=== PATIENT | male | born 1950 | race American Indian/Alaskan Native ===

== ENCOUNTER 2021-05-09 00:53 | Inpatient (IN) | payer MEDICARE ==
--- NOTE | 2021-05-09 01:04 | Emergency Department Report ---
ED Neuro Deficit HPI - General Stated Complaint: ALTERED MENTAL STATUS Time Seen by Provider: 05/09/21 01:00 Source: EMS, old records reviewed (No previous records in [facility].) Mode of arrival: Stretcher Limitations: Other - History of Present Illness Initial Comments: 70-year-old male with a past medical history of hypertension diabetes currently Metformin, glipizide, amlodipine presents to the hospital with stroke symptoms. EMS received call for alteration in mental status. Family states that at around dinnertime they noticed patient was walking into [place] and seems to be confused. He is typically very oriented without deficits. EMS reports a blood pressure of 150/100 and blood glucose is 364. Patient is alert but appears to have an expressive aphasia and difficulty following some commands. Patient states that he is "tripping" code stroke called after my evaluation Patient unable to answer direct questions such as what is his name, or year. He has difficulty with fatigue with word finding and naming objects. He also appears to have difficulty following simple commands such as "touch your nose". In response to this question patient opens and closes his hands. Stat CT head and CT angio head and neck ordered. EMS reports that family member could not be specific about the time of onset other than "around dinnertime" - Related Data Allergies/Adverse Reactions: Allergies Allergy/AdvReac Type Severity Reaction Status Date / Time No Known Allergies Allergy Verified 05/09/21 01:02 ED Review of Systems ROS: Stated complaint: ALTERED MENTAL STATUS Other details as noted in HPI ED Neuro Physical Exam - General Suspected Stroke: Yes - NIHSS Assessment Interval: Baseline 1a. Level of Consciousness: alert/keenly responsive 1b. LOC Questions: answers no questions correctly 1c. LOC Commands: performs tasks correctly 2. Best Gaze: normal 3. Visual: no visual loss 4. Facial Palsy: normal symmetrical movement 5b. Motor Arm Right: no drift 5a. Motor Arm Left: no drift 6a. Motor Leg Left: no drift 6b. Motor Leg Right: no drift 7. Limb Ataxia: absent 8. Sensory: normal 9. Best Language: severe aphasia 10. Dysarthria: normal 11. Extinction/Inattention: no abnormality Total Score: 4 Stroke Severity: Minor Stroke - Lab Data Result diagrams: 05/09/21 01:28 05/09/21 01:28 Lab Results 05/09/21 05/09/21 05/09/21 Range/Units 01:28 01:28 01:28 WBC 6.2 (4.5-11.0) K/mm3 RBC 4.28 (3.65-5.03) M/mm3 Hgb 14.7 (11.8-15.2) gm/dl Hct 39.3 (35.5-45.6) % MCV 92 (84-94) fl MCH 34 H (28-32) pg MCHC 37 H (32-34) % RDW 13.2 (13.2-15.2) % Plt Count 163 (140-440) K/mm3 Lymph % (Auto) 23.0 (13.4-35.0) % Payne % (Auto) 7.5 H (0.0-7.3) % Eos % (Auto) 2.1 (0.0-4.3) % Baso % (Auto) 0.7 (0.0-1.8) % Lymph # (Auto) 1.4 (1.2-5.4) K/mm3 Payne # (Auto) 0.5 (0.0-0.8) K/mm3 Eos # (Auto) 0.1 (0.0-0.4) K/mm3 Baso # (Auto) 0.0 (0.0-0.1) K/mm3 Seg Neutrophils % 66.7 (40.0-70.0) % Seg Neutrophils # 4.1 (1.8-7.7) K/mm3 PT 14.0 (12.2-14.9) Sec. INR 0.97 (0.87-1.13) APTT 27.7 (24.2-36.6) Sec. Thrombin Time 16.9 (15.1-19.6) Sec. VBG pH (7.320-7.420) Sodium 133 L (137-145) mmol/L Potassium 4.1 (3.6-5.0) mmol/L Chloride 96.8 L (98-107) mmol/L Carbon Dioxide 23 (22-30) mmol/L Anion Gap 17 mmol/L BUN 12 (9-20) mg/dL Creatinine 1.0 (0.8-1.3) mg/dL Estimated GFR > 60 ml/min BUN/Creatinine Ratio 12 % Glucose 451 H (75-100) mg/dL Calcium 9.2 (8.4-10.2) mg/dL Total Bilirubin 0.50 (0.1-1.2) mg/dL AST 9 (5-40) units/L ALT 7 (7-56) units/L Alkaline Phosphatase 93 (35-129) units/L Total Creatine Kinase 88 (55-170) units/L CK-MB (CK-2) 2.0 (0.0-4.0) ng/mL CK-MB (CK-2) Rel Index 2.2 (0-4) Troponin T < 0.010 (0.00-0.029) ng/mL Total Protein 6.4 (6.3-8.2) g/dL Albumin 3.9 (3.9-5) g/dL Albumin/Globulin Ratio 1.6 % Urine Color (Yellow) Urine Turbidity (Clear) Urine pH (5.0-7.0) Ur Specific Adkins (1.003-1.030) Urine Protein (Negative) mg/dL Urine Glucose (UA) (Negative) mg/dL Urine Ketones (Negative) mg/dL Urine Blood (Negative) Urine Nitrite (Negative) Urine Bilirubin (Negative) Urine Urobilinogen (<2.0) mg/dL Ur Leukocyte Esterase (Negative) Urine WBC (Auto) (0.0-6.0) /HPF Urine RBC (Auto) (0.0-6.0) /HPF 05/09/21 05/09/21 Range/Units 01:31 Unknown WBC (4.5-11.0) K/mm3 RBC (3.65-5.03) M/mm3 Hgb (11.8-15.2) gm/dl Hct (35.5-45.6) % MCV (84-94) fl MCH (28-32) pg MCHC (32-34) % RDW (13.2-15.2) % Plt Count (140-440) K/mm3 Lymph % (Auto) (13.4-35.0) % Payne % (Auto) (0.0-7.3) % Eos % (Auto) (0.0-4.3) % Baso % (Auto) (0.0-1.8) % Lymph # (Auto) (1.2-5.4) K/mm3 Payne # (Auto) (0.0-0.8) K/mm3 Eos # (Auto) (0.0-0.4) K/mm3 Baso # (Auto) (0.0-0.1) K/mm3 Seg Neutrophils % (40.0-70.0) % Seg Neutrophils # (1.8-7.7) K/mm3 PT (12.2-14.9) Sec. INR (0.87-1.13) APTT (24.2-36.6) Sec. Thrombin Time (15.1-19.6) Sec. VBG pH 7.484 H (7.320-7.420) Sodium (137-145) mmol/L Potassium (3.6-5.0) mmol/L Chloride (98-107) mmol/L Carbon Dioxide (22-30) mmol/L Anion Gap mmol/L BUN (9-20) mg/dL Creatinine (0.8-1.3) mg/dL Estimated GFR ml/min BUN/Creatinine Ratio % Glucose (75-100) mg/dL Calcium (8.4-10.2) mg/dL Total Bilirubin (0.1-1.2) mg/dL AST (5-40) units/L ALT (7-56) units/L Alkaline Phosphatase (35-129) units/L Total Creatine Kinase (55-170) units/L CK-MB (CK-2) (0.0-4.0) ng/mL CK-MB (CK-2) Rel Index (0-4) Troponin T (0.00-0.029) ng/mL Total Protein (6.3-8.2) g/dL Albumin (3.9-5) g/dL Albumin/Globulin Ratio % Urine Color Straw (Yellow) Urine Turbidity Clear (Clear) Urine pH 7.0 (5.0-7.0) Ur Specific Adkins 1.028 (1.003-1.030) Urine Protein 30 mg/dl (Negative) mg/dL Urine Glucose (UA) >=500 (Negative) mg/dL Urine Ketones Neg (Negative) mg/dL Urine Blood Neg (Negative) Urine Nitrite Neg (Negative) Urine Bilirubin Neg (Negative) Urine Urobilinogen < 2.0 (<2.0) mg/dL Ur Leukocyte Esterase Neg (Negative) Urine WBC (Auto) 1.0 (0.0-6.0) /HPF Urine RBC (Auto) 2.0 (0.0-6.0) /HPF - EKG Data -: EKG Interpreted by Me (Previous anterior inferior infarct) EKG shows normal: sinus rhythm, ST-T waves (No ST elevation) Rate: normal - Radiology Data Radiology results: report reviewed CT HEAD WITHOUT CONTRAST INDICATION / CLINICAL INFORMATION: Stroke symptoms. TECHNIQUE: All CT scans at this location are performed using CT dose reduction for ALARA by means of automated exposure control. COMPARISON: None available. FINDINGS: BRAIN PARENCHYMA: No acute intracranial hemorrhage. No evidence of recent infarct. No mass effect or midline shift. Severe confluent hypoattenuation of the periventricular and subcortical white matter. VENTRICULAR SYSTEM/EXTRA-AXIAL SPACES: Age-related cerebral atrophy. No extra- axial fluid collection. ORBITS: Normal as visualized. SKELETAL SYSTEM/SOFT TISSUES: Normal bones and soft tissues. PARANASAL SINUSES/MASTOID AIR CELLS: No significant abnormality. ADDITIONAL FINDINGS: None. IMPRESSION: 1. No acute intracranial abnormality. CT angio head INDICATION / CLINICAL INFORMATION: 70 years Male; stroke sx. TECHNIQUE: Thin cut axial images obtained through the head during IV bolus contrast administration. Sagittal, coronal, and 3 plane MIP reconstructions performed by the technologist. NASCET type criteria used evaluate stenoses. Automated exposure control utilized for radiation reduction purposes. . COMPARISON: None available. FINDINGS: INTERNAL CAROTID ARTERIES: No significant narrowing appreciated. VERTEBROBASILAR SYSTEM: Right dominant vertebral system seen. Focal area of moderate to high-grade narrowing is seen in the nondominant left vertebral artery at the level of foramen magnum. The distal right vertebral and basilar arteries are widely patent. DISTAL BRANCHES: Distal branches of the anterior and posterior cerebral arteries are fairly symmetric in appearance and number. There is a mid to distal sylvian fissure branch MCA occlusion on the left, with a paucity of vessels noted distally in the left parietotemporal region. Loss of nixon/white differentiation is seen in this region, as well as the posterior insular cortex on the left. Remainder of the MCA territories are fairly symmetric in appearance. Hypoplastic P1 segment noted on the right - right GUARD LIEUTENANT demonstrates a origin. 2 focal area of moderate narrowing in the P2 portion of the right posterior cerebral artery, lateral to the midbrain. ANEURYSM: None identified. ADDITIONAL FINDINGS: Mild mucosal thickening in the maxillary antra. IMPRESSION: 1. 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 This vessel supplies blood flow to the ipsilateral parietotemporal region. 2. Focal area of narrowing in the right GUARD LIEUTENANT noted. 3. Focal area of moderate to high-grade narrowing seen in the nondominant left vertebral artery. Note, I see no signs of early ischemia in the posterior fossa. Type CT angio neck INDICATION / CLINICAL INFORMATION: 70 years Male; stroke sx. TECHNIQUE: Thin cut axial images obtained through the head during IV bolus contrast administration. Sagittal, coronal, and 3 plane MIP reconstructions performed by the technologist. NASCET type cri teria used evaluate stenoses. All CT scans at this location are performed using CT dose reduction for ALARA by means of automated exposure control. . COMPARISON: None available. FINDINGS: ARCH: Bovine arch configuration noted. Focal area of [id number] narrowing is seen at the junction of the left subclavian and axillary artery, posterior to the clavicle and anterior to the second rib. Its difficult to evaluate for the exact degree of stenosis in this region as there is streak artifact from dense contrast in the left subclavian vein. Comparative, upper extremity Doppler arterial analysis may be of benefit. CAROTID ARTERIES: The visualized common and internal carotid arteries are widely patent. VERTEBRAL ARTERIES: Slight, right dominant vertebral system seen. Focal area of moderate narrowing is seen in the proximal right vertebral artery near its origin. Similar finding is seen at the origin of the left vertebral artery. No other significant stenosis appreciated in the extra cranial vertebral arteries, although multiple areas of mild narrowing are seen bilaterally, presumably related atherosclerotic disease. ADDITIONAL FINDINGS: There is levoscoliosis of the cervicothoracic region. Mild loss of height at various levels in the cervical spine, which appears be on a chronic basis. Vertebral canal narrowing seen at C3-4 perhaps [id number] appear to be on degenerative basis. IMPRESSION: 1. Narrowing seen in the left subclavian/axillary artery, as described above. 2. No significant narrowing seen in the common or internal carotid arteries. 3. Atherosclerotic disease seen in the vertebral arteries with areas of moderate narrowing seen near their origins. - Medical Decision Making 70-year-old male presents to the hospital with stroke symptoms are started sometimes around dinnertime. Time of onset greater than 4.5 hours therefore patient is not a TPA candidate. CT angiogram suggests MCA occlusion ever, there are any findings of white matter changes and may show scans only for therefore patient still is not a candidate for acute thrombectomy intervention (see neurology note). Patient did pass swallow screen and provided aspirin p.o. Will be admitted to the hospital for continued stroke work-up and treatment. - Thrombolytic Inclusion/Exclusion Thrombolytic Exclusion Criteria: Symptom Onset > 3 Hours Critical Care Time: Yes Critical care time in (mins) excluding proc time.: 35 Critical care attestation.: If time is entered above; I have spent that time in minutes in the direct care of this critically ill patient, excluding procedure time. Critical Care Time: 35 Minutes of critical care time excluding procedures were used in the care of the patient. I came immediately to the bedside upon patient's arrival. I obtained history from EMS at the bedside. I discussed treatment plan with the nursing team members. I reviewed electronic record. Patient required multiple reassessments. patient received stat ED work-up including consultation with neurology ED Disposition Clinical Impression: Acute CVA (cerebrovascular accident), Expressive aphasia Disposition: ADMITTED INPATIENT Is pt being admited?: Yes Condition: Stable Time of Disposition: 02:39
[2021-05-09] MEDS ORDERED: ASPIRIN 325 MG TAB PO ONE (01:19)
--- NOTE | 2021-05-09 01:23 | Cat Scan Report ---
CT HEAD WITHOUT CONTRAST INDICATION / CLINICAL INFORMATION: Stroke symptoms. TECHNIQUE: All CT scans at this location are performed using CT dose reduction for ALARA by means of automated exposure control. COMPARISON: None available. FINDINGS: BRAIN PARENCHYMA: No acute intracranial hemorrhage. No evidence of recent infarct. No mass effect or midline shift. Severe confluent hypoattenuation of the periventricular and subcortical white matter. VENTRICULAR SYSTEM/EXTRA-AXIAL SPACES: Age-related cerebral atrophy. No extra-axial fluid collection. ORBITS: Normal as visualized. SKELETAL SYSTEM/SOFT TISSUES: Normal bones and soft tissues. PARANASAL SINUSES/MASTOID AIR CELLS: No significant abnormality. ADDITIONAL FINDINGS: None. IMPRESSION: 1. No acute intracranial abnormality. CODE STROKE Time of Communication (FLAME HARDENER/CDT): Jessica Churchill Licensed Practitioner Receiving Report: 05/09/21 @ 1215 am Signer Name: Art Neff MD Signed: 05/09/2021 1:18 AM Workstation Name: [id number]
--- NOTE | 2021-05-09 01:27 | Consultation ---
History of Present Illness History of present illness: [facility] Consult Note # Demographics Consult Type: Acute Stroke Level 2 (4.5-24 hrs) Patient Location: Emergency Room First Name: Dino Last Name: Paulino Date of : 1950 Age: 70 Gender: Male Facility: [facility] Time of Initial Page (): 05/09/2021, 01:13 Time of Return Call (): 05/09/2021, 01:14 # Scores Time of exam and NIHSS (): 05/09/2021, 01:21 Level of Consciousness 1a: [0] = Alert; keenly responsive LOC Questions 1b: [2] = Answers neither correctly LOC Commands 1c: [0] = Performs both tasks correctly Best Gaze 2: [0] = Normal Visual 3: [0] = No visual loss Facial Palsy 4: [0] = Normal symmetrical movements Motor Arm Left 5a: [0] = No drift Motor Arm Right 5b: [0] = No drift Motor Leg Left 6a: [0] = No drift Motor Leg Right 6b: [0] = No drift Limb Ataxia 7: [0] = Absent Sensory 8: [0] = Normal Best Language 9: [2] = Severe aphasia Dysarthria 10: [0] = Normal Extinction and Inattention 11: [0] = No abnormality NIHSS Total: 4 # Data Time Head CT personally read by me (): 05/09/2021, 01:[address]: no bleed preliminarily reviewed by me, please refer to radiology read for official reading CTA Head: no large vessel occlusion preliminarily reviewed by me, please refer to radiology read for official reading CTA Neck: patent vessels preliminarily reviewed by me, please refer to radiology read for official reading # Assessment Impression: Ischemic Stroke (Acute) # Plan Thrombolytic/Intervention: NOT IV Thrombolysis or IA Intervention candidate Thrombolytic Exclusion: > 4.5 hours Intraarterial Exclusion: no large vessel occlusion (LVO) Target Blood Pressure: SBP < 220 DBP < 105 Labs: hemoglobin A1c lipid panel Imaging: (urgency: routine): MRI Brain without contrast Diagnostic Test: echo without bubble study Therapy/Evaluation: NPO until swallow evaluation PT/OT evaluation speech/swallow consultation Medication: ASA 325 x1 then 81 daily (300 TX if fails swallow eval) Atorvastatin 80, tailor daily dose to LDL < 70 goal DVT Prophylaxis: SCD chemical DVT prophylaxis Other: permissive hypertension telemetry monitoring I have discussed my recommendations with the referring provider Disposition: admit # Logistics Telemedicine: Interactive 2 way audio and visual telecommunication technology was utilized during this visit Electronically signed at 05/09/2021 01:26 (Eastern Time) by Shubham Ford MD Medications and Allergies Allergies Allergy/AdvReac Type Severity Reaction Status Date / Time No Known Allergies Allergy Verified 05/09/21 01:02
[2021-05-09 01:51] LABS: Basophils % (Auto) 0.7 % (0.0-1.8); Eosinophils # (Auto) 0.1 K/mm3 (0.0-0.4); Eosinophils % (Auto) 2.1 % (0.0-4.3); Lymphocytes # (Auto) 1.4 K/mm3 (1.2-5.4); Mean Corpuscular HGB Conc 37 % (32-34); Mean Corpuscular Volume 92 fl (84-94); Monocytes # (Auto) 0.5 K/mm3 (0.0-0.8); Monocytes % (Auto) 7.5 % (0.0-7.3); Platelet Count 163 K/mm3 (140-440); Red Blood Count 4.28 M/mm3 (3.65-5.03); Red Cell Distribution Width 13.2 % (13.2-15.2)
--- NOTE | 2021-05-09 01:51 | Cat Scan Report ---
CT angio head INDICATION / CLINICAL INFORMATION: 70 years Male; stroke sx. TECHNIQUE: Thin cut axial images obtained through the head during IV bolus contrast administration. S agittal, coronal, and 3 plane MIP reconstructions performed by the technologist. NASCET type criteria used evaluate stenoses. Automated exposure control utilized for radiation reduction purposes. . COMPARISON: None available. FINDINGS: INTERNAL CAROTID ARTERIES: No significant narrowing appreciated. VERTEBROBASILAR SYSTEM: Right dominant vertebral system seen. Focal area of moderate to high-grade narrowing is seen in the nondominant left vertebral artery at th e level of foramen magnum. The distal right vertebral and basilar arteries are widely patent. DISTAL BRANCHES: Distal branches of the anterior and posterior cerebral arteries are fairly symmetric in appearance and number. There is a mid to distal sylvian fissure branch MCA occlusion on the left, with a paucity of vessels noted distally in the left parietotemporal region. Loss of nixon/white differentiation is seen in this region, as well as the posterior insular cortex on the left. Remainder of the MCA territories are fa irly symmetric in appearance. Hypoplastic P1 segment noted on the right - right EMT B demonstrates a origin. 2 focal area of moderate narrowing in the P2 portion of the right posterior cerebral artery, lateral to the midbrain. ANEURYSM: None identified. ADDITIONAL FINDINGS: Mild mucosal thickening in the maxillary antra. IMPRESSION: 1. 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 This vessel supplies blo od flow to the ipsilateral parietotemporal region. 2. Focal area of narrowing in the right EMT B noted. 3. Focal area of moderate to high-grade narrowing seen in the nondominant left vertebral artery. Note , I see no signs of early ischemia in the posterior fossa. Signer Name: Kareem Brito MD, III Signed: 05/09/2021 1:47 AM Workstation Name: [email or web address]
[2021-05-09 01:59] LABS: Hematocrit 39.3 % (35.5-45.6); Hemoglobin 14.7 gm/dl (11.8-15.2)
[2021-05-09 02:03] LABS: INR 0.97 (0.87-1.13)
[2021-05-09 02:04] LABS: Partial Thromboplastin Time 27.7 Sec. (24.2-36.6); Thrombin Time 16.9 Sec. (15.1-19.6)
[2021-05-09 02:06] LABS: Alanine Aminotransferase 7 units/L (7-56); Albumin 3.9 g/dL (3.9-5); BUN/Creatinine Ratio 12; Blood Urea Nitrogen 12 mg/dL (9-20); Calcium 9.2 mg/dL (8.4-10.2); Hemolysis Index 8
--- NOTE | 2021-05-09 02:09 | Cat Scan Report ---
Type CT angio neck INDICATION / CLINICAL INFORMATION: 70 years Male; stroke sx. TECHNIQUE: Thin cut axial images obtained through the head during IV bolus contrast administration. S agittal, coronal, and 3 plane MIP reconstructions performed by the technologist. NASCET type criteria used evaluate stenoses. All CT scans at this location are performed using CT dose reduction for ALAR A by means of automated exposure control. . COMPARISON: None available. FINDINGS: ARCH: Bovine arch configuration noted. Focal area of [id number] narrowing is seen at the junction of the left subclavian and axillary artery, posterior to the clavicle and anterior to the second rib. Its difficult to evaluate for the e xact degree of stenosis in this region as there is streak artifact from dense contrast in the left rolon bclavian vein. Comparative, upper extremity Doppler arterial analysis may be of benefit. CAROTID ARTERIES: The visualized common and internal carotid arteries are widely patent. VERTEBRAL ARTERIES: Slight, right dominant vertebral system seen. Focal area of moderate narrowing is seen in the proximal right vertebral artery near its origin. Monica lar finding is seen at the origin of the left vertebral artery. No other significant stenosis appreciated in the extra cranial vertebral arteries, although multiple areas of mild narrowing are seen bilaterally, presumably related atherosclerotic disease. ADDITIONAL FINDINGS: There is levoscoliosis of the cervicothoracic region. Mild loss of height at various levels in the cervical spine, which appears be on a chronic basis. Alina tebral canal narrowing seen at C3-4 perhaps [id number] appear to be on degenerative basis. IMPRESSION: 1. Narrowing seen in the left subclavian/axillary artery, as described above. 2. No significant narrowing seen in the common or internal carotid arteries. 3. Atherosclerotic disease seen in the vertebral arteries with areas of moderate narrowing seen near their origins. Signer Name: Kareem Brito MD, III Signed: 05/09/2021 2:05 AM Workstation Name: [email or web address]
[2021-05-09 02:25] LABS: Bilirubin,Urine NEG (Negative); Blood,Urine NEG (Negative); Color,Urine Straw (Yellow); Urobilinogen,Urine < 2.0 mg/dL (<2.0)
[2021-05-09] MEDS ORDERED: INSULIN REGULAR, HUMAN 100 UNITS/1 ML IV ONE (02:34)
[2021-05-09] MEDS ORDERED: METOCLOPRAMIDE 10 MG TAB PO PRN (03:09)
[2021-05-09] MEDS ORDERED: ONDANSETRON 4 MG/2 ML INJ IV PRN (03:09)
[2021-05-09] MEDS ORDERED: MAGNESIUM HYDROXIDE (MOM) ORAL LIQD UDC PO PRN (03:09)
[2021-05-09] MEDS ORDERED: ACETAMINOPHEN 325 MG TAB PO PRN (03:09)
[2021-05-09] MEDS ORDERED: MORPHINE 4 MG/1 ML INJ IV PRN (03:09)
[2021-05-09] MEDS ORDERED: PROMETHAZINE 25 MG RECT SUPP PR PRN (03:09)
[2021-05-09] MEDS ORDERED: MORPHINE 2 MG/1 ML INJ IV PRN (03:09)
--- NOTE | 2021-05-09 03:18 | History and Physical Report ---
History of Present Illness Date of examination: 05/09/21 Date of admission: 05/09/2021 Chief complaint: Altered Mental Status History of present illness: 89-year-old -[place] male with known history of hypertension, diabetes mellitus presenting to the emergency room today with altered mental status and strokelike symptoms. Patient's family was said to have noticed him walking into the [place] and seems to be confused and therefore called EMS. Initial blood pressure upon arrival of EMS was 150/100 and blood glucose was 364. Symptoms were said to have started about dinnertime earlier in the evening. Patient denies any fever or chills, no chest pain or shortness of breath, no nausea vomiting and no abdominal pain. He denies any headache or dizziness, denies any diaphoresis. Patient denies any sick contacts and no recent travel. Denies any sick contacts with anyone with COVID-19. During my history, patient seems to have expressive aphasia and had some difficulty following some commands. Work-up in the emergency room today, CT of the head shows no acute abnormality. CT angiogram of the head reveals: 1. 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 This vessel supplies blood flow to the ipsilateral parietotemporal region. 2. Focal area of narrowing in the right [employer] noted. 3. Focal area of moderate to high-grade narrowing seen in the nondominant left vertebral artery. Note, I see no signs of early ischemia in the posterior fossa. CT angiogram of the neck reveals: 1. Narrowing seen in the left subclavian/axillary artery, as described above. 2. No significant narrowing seen in the common or internal carotid arteries. 3. Atherosclerotic disease seen in the vertebral arteries with areas of moderate narrowing seen near their origins. Lab is significant for elevated blood glucose of 451. Patient evaluated by the tele-neurologist and recommendation is to have patient worked up for CVA. He will be scheduled for MRI of the brain, carotid Doppler and echocardiogram. We will also check hemoglobin A1c and lipid profile. Patient passed the bedside swallowing test and had received aspirin. Past History Past Medical History: diabetes, hypertension Past Surgical History: No surgical history Social history: no significant social history Family history: no significant family history Medications and Allergies Allergies Allergy/AdvReac Type Severity Reaction Status Date / Time No Known Allergies Allergy Verified 05/09/21 01:02 Active Meds: Active Medications Acetaminophen (Acetaminophen 325 Mg Tab) 650 mg PO Q4H PRN PRN Reason: Pain, Mild (1-3) Atorvastatin Calcium (Atorvastatin 40 Mg Tab) 40 mg PO QHS GABRIELE Bisacodyl (Bisacodyl 10 Mg Rect Supp) 10 mg LA QDAY PRN PRN Reason: Constipation Dextrose (Dextrose 50% In Water (25gm) 50 Ml Syringe) 50 ml IV Q30MIN PRN; Protocol PRN Reason: Hypoglycemia Magnesium Hydroxide (Magnesium Hydroxide (Mom) Oral Liqd Udc) 30 ml PO Q4H PRN PRN Reason: Constipation Metoclopramide HCl (Metoclopramide 10 Mg Tab) 10 mg PO Q6H PRN PRN Reason: Nausea And Vomiting Ondansetron HCl (Ondansetron 4 Mg/2 Ml Inj) 4 mg IV Q8H PRN PRN Reason: Nausea And Vomiting Promethazine HCl (Promethazine 25 Mg Rect Supp) 25 mg LA Q6H PRN PRN Reason: Nausea And Vomiting Sodium Chloride (Sodium Chloride 0.9% 10 Ml Flush Syringe) 10 ml INJ PRN PRN PRN Reason: LINE FLUSH Review of Systems Constitutional: no fever, no chills Ears, nose, mouth and throat: no nasal congestion, no sore throat Cardiovascular: no chest pain, no palpitations Respiratory: no cough, no shortness of breath Gastrointestinal: no abdominal pain, no nausea, no vomiting, no diarrhea Genitourinary Male: no dysuria, no hematuria, no flank pain Musculoskeletal: no neck pain, no low back pain Integumentary: no rash, no pruritis Neurological: confusion, balance difficulties, no seizures, no headaches Psychiatric: no anxiety, no depression Endocrine: no polyphagia, no polydipsia, no polyuria, no nocturia Exam - Constitutional General appearance: Present: no acute distress, well-nourished - EENT Eyes: Present: PERRL, EOM intact. Absent: scleral icterus ENT: hearing intact, clear oral mucosa, dentition normal - Neck Neck: Present: supple, normal ROM - Respiratory Respiratory effort: normal Respiratory: bilateral: CTA - Cardiovascular Rhythm: regular Heart Sounds: Present: S1 & S2. Absent: gallop, systolic murmur, diastolic murmur, rub, click - Extremities Extremities: no ischemia, pulses intact, pulses symmetrical, No edema, normal temperature, normal color, Full ROM Peripheral Pulses: within normal limits - Abdominal General gastrointestinal: Present: soft, non-tender, non-distended, normal bowel sounds. Absent: mass - Integumentary Integumentary: Present: clear, warm, dry, normal turgor. Absent: rash - Musculoskeletal Musculoskeletal: strength equal bilaterally - Psychiatric Psychiatric: appropriate mood/affect, intact judgment & insight, memory intact, cooperative - Neurologic Neurologic: CNII-XII intact, no focal deficits, moves all extremities HEART Score - HEART Score Troponin: Troponin T < 0.010 ng/mL (0.00-0.029) 05/09/21 01:28 Results - Labs CBC & Chem 7: 05/09/21 01:05/09/21 01:28 Labs: Abnormal lab results 05/09/21 05/09/21 05/09/21 Range/Units 01: 01:28 01:31 MCH 34 H (28-32) pg MCHC 37 H (32-34) % [place] % (Auto) 7.5 H (0.0-7.3) % VBG pH 7.484 H (7.320-7.420) Sodium 133 L (137-145) mmol/L Chloride 96.8 L (98-107) mmol/L Glucose 451 H (75-100) mg/dL POC Glucose (70-105) mg/dL 05/09/21 Range/Units 03:08 MCH (28-32) pg MCHC (32-34) % [place] % (Auto) (0.0-7.3) % VBG pH (7.320-7.420) Sodium (137-145) mmol/L Chloride (98-107) mmol/L Glucose (75-100) mg/dL POC Glucose 376 H (70-105) mg/dL Assessment and Plan - Patient Problems (1) Acute CVA (cerebrovascular accident) Current Visit: Yes Status: Acute Plan to address problem: Patient admitted and placed on telemetry. We will schedule for echocardiogram, carotid Doppler and MRI of the brain. We will request neurology evaluation. (2) Hyperglycemia Current Visit: Yes Status: Acute Plan to address problem: Patient placed on sliding scale insulin. We will monitor Accu-Cheks closely. (3) Hypertension Current Visit: Yes Status: Acute Plan to address problem: We will resume routine home medications and monitor vital signs closely. (4) Expressive aphasia Current Visit: Yes Status: Acute Plan to address problem: We request speech therapy evaluation and recommendations. (5) DVT prophylaxis Current Visit: Yes Status: Acute Plan to address problem: Patient placed on subcutaneous heparin. (6) Full code status Current Visit: Yes Status: Acute Plan to address problem: Patient is full code.
[2021-05-09] MEDS ORDERED: DEXTROSE 10% *Hypoglycemia IV PRN (03:33)
[2021-05-09] MEDS: HEPARIN 5,000 UNIT/1 ML VIAL SUB-Q SCH ×3 (06:41→23:38)
[2021-05-09] MEDS: INSULIN LISPRO 100 UNIT/ML SUB-Q SCH ×4 (08:00→23:38)
--- NOTE | 2021-05-09 09:20 | Consultation ---
History of Present Illness Consult date: 05/09/21 Reason for Consult: Confusion and or aphasia,Hyperglycemia History of present illness: Altered Mental Status History of present illness: 89-year-old -Citizen Of [place] male with known history of hypertension, diabetes mellitus presenting to the emergency room today with altered mental status and strokelike symptoms. Patient's family was said to have noticed him walking into the [place] and seems to be confused and therefore called EMS. Initial blood pressure upon arrival of EMS was 150/100 and blood glucose was 364. Symptoms were said to have started about dinnertime earlier in the evening. Patient denies any fever or chills, no chest pain or shortness of breath, no nausea vomiting and no abdominal pain. He denies any headache or dizziness, denies any diaphoresis. Patient denies any sick contacts and no recent travel. Denies any sick contacts with anyone with COVID-19. During my history, patient seems to have perceptive aphasia and had some difficulty following some commands. Work-up in the emergency room today, CT of the head shows no acute abnormality. CT angiogram of the head reveals: 1. 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 This vessel supplies blood flow to the ipsilateral parietotemporal region. 2. Focal area of narrowing in the right [employer] noted. 3. Focal area of moderate to high-grade narrowing seen in the nondominant left vertebral artery. Note, I see no signs of early ischemia in the posterior fossa. CT angiogram of the neck reveals: 1. Narrowing seen in the left subclavian/axillary artery, as described above. 2. No significant narrowing seen in the common or internal carotid arteries. 3. Atherosclerotic disease seen in the vertebral arteries with areas of moderate narrowing seen near their origins. Lab is significant for elevated blood glucose of 451. Patient evaluated by the tele-neurologist and recommendation is to have patient worked up for CVA. Brain MRI of the brain is remarkable for large left parieto temporal infarct , no hemorrhage no edema carotid Doppler <50% stenosis and echocardiogram showed 20-25% LV and left atrial dilatation Patient passed the bedside swallowing test and had received aspirin. Past History Past Medical History: diabetes, hypertension Past Surgical History: No surgical history Social history: no significant social history Family history: no significant family history Medications and Allergies Allergies Allergy/AdvReac Type Severity Reaction Status Date / Time No Known Allergies Allergy Verified 05/09/21 01:02 Active Meds: Active Medications Acetaminophen (Acetaminophen 325 Mg Tab) 650 mg PO Q4H PRN PRN Reason: Pain, Mild (1-3) Atorvastatin Calcium (Atorvastatin 40 Mg Tab) 40 mg PO QHS GABRIELE Bisacodyl (Bisacodyl 10 Mg Rect Supp) 10 mg MA QDAY PRN PRN Reason: Constipation Dextrose (Dextrose 50% In Water (25gm) 50 Ml Syringe) 50 ml IV Q30MIN PRN; Protocol PRN Reason: Hypoglycemia Magnesium Hydroxide (Magnesium Hydroxide (Mom) Oral Liqd Udc) 30 ml PO Q4H PRN PRN Reason: Constipation Metoclopramide HCl (Metoclopramide 10 Mg Tab) 10 mg PO Q6H PRN PRN Reason: Nausea And Vomiting Ondansetron HCl (Ondansetron 4 Mg/2 Ml Inj) 4 mg IV Q8H PRN PRN Reason: Nausea And Vomiting Promethazine HCl (Promethazine 25 Mg Rect Supp) 25 mg MA Q6H PRN PRN Reason: Nausea And Vomiting Sodium Chloride (Sodium Chloride 0.9% 10 Ml Flush Syringe) 10 ml INJ PRN PRN PRN Reason: LINE FLUSH Review of Systems Constitutional: no fever, no chills Ears, nose, mouth and throat: no nasal congestion, no sore throat Cardiovascular: no chest pain, no palpitations Respiratory: no cough, no shortness of breath Gastrointestinal: no abdominal pain, no nausea, no vomiting, no diarrhea Genitourinary Male: no dysuria, no hematuria, no flank pain Musculoskeletal: no neck pain, no low back pain Integumentary: no rash, no pruritis Neurological: confusion, balance difficulties, no seizures, no headaches Psychiatric: no anxiety, no depression Endocrine: no polyphagia, no polydipsia, no polyuria, no nocturia Exam Past History Past Medical History: diabetes, hypertension Past Surgical History: No surgical history Social history: no significant social history Family history: no significant family history Medications and Allergies Allergies Allergy/AdvReac Type Severity Reaction Status Date / Time No Known Allergies Allergy Verified 05/09/21 01:02 Active Meds: Active Medications Acetaminophen (Acetaminophen 325 Mg Tab) 650 mg PO Q4H PRN PRN Reason: Pain, Mild (1-3) Aspirin (Aspirin 325 Mg Tab) 325 mg PO QDAY GABRIELE Atorvastatin Calcium (Atorvastatin 40 Mg Tab) 40 mg PO QHS GABRIELE Bisacodyl (Bisacodyl 10 Mg Rect Supp) 10 mg MA QDAY PRN PRN Reason: Constipation Dextrose (Dextrose 10% *Hypoglycemia) 0 ml IV DIRECT PRN; Protocol PRN Reason: Hypoglycemia Heparin Sodium (Porcine) (Heparin 5,000 Unit/1 Ml Vial) 5,000 unit SUB-Q Q8HR [facility] Last Admin: 05/09/21 06:41 Dose: 5,000 unit Insulin Human Lispro (Insulin Lispro 100 Unit/Ml) 0 unit SUB-Q ACHS [facility]; Protocol Magnesium Hydroxide (Magnesium Hydroxide (Mom) Oral Liqd Udc) 30 ml PO Q4H PRN PRN Reason: Constipation Metoclopramide HCl (Metoclopramide 10 Mg Tab) 10 mg PO Q6H PRN PRN Reason: Nausea And Vomiting Morphine Sulfate (Morphine 2 Mg/1 Ml Inj) 2 mg IV Q4H PRN PRN Reason: Pain, Moderate (4-6) Morphine Sulfate (Morphine 4 Mg/1 Ml Inj) 4 mg IV Q4H PRN PRN Reason: Pain , Severe (7-10) Ondansetron HCl (Ondansetron 4 Mg/2 Ml Inj) 4 mg IV Q8H PRN PRN Reason: Nausea And Vomiting Promethazine HCl (Promethazine 25 Mg Rect Supp) 25 mg MA Q6H PRN PRN Reason: Nausea And Vomiting Sodium Chloride (Sodium Chloride 0.9% 10 Ml Flush Syringe) 10 ml IV PRN PRN PRN Reason: LINE FLUSH Physical Examination - Vital Signs Vital Signs: Vital Signs Temp Pulse 98.1 F 86 05/09/21 01:22 05/09/21 01:22 - Constitutional General appearance: comfortable - EENT EENT: Present: PERRL, mucous membranes moist - Respiratory Respiratory: Present: chest non-tender, lungs clear, rhonchi - Cardiovascular Cardiovascular: Present: regular rate, normal S1, normal S2 Extremities: Present: no peripheral edema bilatateraly, no clubbing, cyanosis - Gastrointestinal Gastrointestinal: Present: normoactive bowel sounds - Integumentary Integumentary: Present: normal - Neurologic Cranial nerve examination: PERRL, EOMI, other (possible right visual neglect ,) Speech examination: sensory aphasia, other Sensorimotor examination: intact Detailed motor examination: grossly full strength in - Level of Consciousness 1a. Level of Consciousness: alert/keenly responsive - LOC Questions 1b. LOC Questions: answers no questions correctly - LOC Command 1c. LOC Commands: performs no tasks correctly - Best Gaze 2. Best Gaze: normal - Visual 3. Visual: partial hemianopia - Facial Palsy 4. Facial Palsy: normal symmetrical movement - Motor Arm 5a. Motor Arm Left: no drift 5b. Motor Arm Right: no drift - Motor Leg 6a. Motor Leg Left: no drift 6b. Motor Leg Right: no drift - Limb Ataxia 7. Limb Ataxia: absent - Sensory 8. Sensory: normal - Best Language 9. Best Language: severe aphasia - Dysarthria 10. Dysarthria: normal - Extinction and Inattention 11. Extinction/Inattention: no abnormality - Scoring Total Score: 7 Stroke Severity: Moderate Stroke Results - Laboratory Findings CBC and BMP: 05/09/21 01:28 05/09/21 01:28 Abnormal Lab Findings: Abnormal Labs 05/09/21 05/09/21 05/09/21 01:28 01:28 01:31 MCH 34 H MCHC 37 H [place] % (Auto) 7.5 H VBG pH 7.484 H Sodium 133 L Chloride 96.8 L Glucose 451 H POC Glucose 05/09/21 03:08 MCH MCHC [place] % (Auto) VBG pH Sodium Chloride Glucose POC Glucose 376 H Assessment and Plan - Patient Problems 89-year-old -Citizen Of [place] male with known history of hypertension, diabetes mellitus presenting to the emergency room today with altered mental status and strokelike symptoms. Patient's family was said to have noticed him walking into the [place] and seems to be confused and therefore called EMS. Initial blood pressure upon arrival of EMS was 150/100 and blood glucose was 364. Symptoms were said to have started about dinnertime earlier in the evening. # Acute CVA (cerebrovascular accident) -pt. is with perceptive aphasia and or possible right visual neglect no focal weakness is noted -CT brain is unremarkable -CTA brain showed possibel posterior branch of left MCA occlusion in sylvian fissure region with focal narrowing in right [employer]IAN noted. - Focal area of moderate to high-grade narrowing seen in the nondominant left vertebral artery. CT angiogram of the neck reveals: - Narrowing seen in the left subclavian/axillary artery, as described above. - No significant narrowing seen in the common or internal carotid arteries. - Atherosclerotic disease seen in the vertebral arteries with areas of moderate narrowing seen near their origins. -echo is noted as well as carotid US -LDL and A1C are pending -he is started on ASA and Lipitor _ Consider transfere to ICU due to large CVA lesion the chance of edema can not be excluded =suggest start on mannitol 40 gm IV now then 25 gm qid X 3 days -better control of sufer -neuro check q shift -CT brain repeat AM -and consider neurosurgical openion if change in mental status # Hyperglycemia -suger control<150 -A1C # Hypertension - allow for permisive HTN<180/120 for 24 hours then BP<150/80 gradual control #Fluent aphasia -We request speech therapy evaluation and recommendations. # DVT prophylaxis -Patient placed on subcutaneous heparin. # Full code status -Patient is full code. D/W PCP and Nurse on floor
--- NOTE | 2021-05-09 09:34 | Event Note ---
Date: 05/09/21 This is a follow-up from an admission earlier this morning. Patient seen and examined. Patient with expressive aphasia but moves all extremities well with no motor deficits. Follow-up echocardiogram, carotid Doppler and MRI brain. Neurology consultation pending. We will continue to plan as outlined in H&P. Total visit time equals 35 minutes with greater than 50% spent on coordination of care and counseling.
[2021-05-09] MEDS ORDERED: ASPIRIN 325 MG TAB PO SCH (10:00)
--- NOTE | 2021-05-09 12:01 | Vascular Lab Report ---
DUPLEX DOPPLER ULTRASOUND CAROTID, BILATERAL INDICATION / CLINICAL INFORMATION: stroke. COMPARISON: CTA neck 05/09/2021. FINDINGS: RIGHT CAROTID: Mild atherosclerotic plaque. - PLAQUE ESTIMATE (%): < 50% - CCA velocity: 40 cm/sec. - ICA peak systolic velocity: 76 cm/sec. - ICA/CCA PSV Ratio: Less than 2. Right Vertebral Artery: Antegrade flow. LEFT CAROTID: Mild atherosclerotic plaque. - PLAQUE ESTIMATE (%): < 50% - CCA velocity: 46 cm/sec. - ICA peak systolic velocity: 86 cm/sec. - ICA/CCA PSV Ratio: Less than 2. Left Vertebral Artery: Antegrade flow. IMPRESSION: 1. Right Internal Carotid Artery: Less than 50% diameter stenosis. 2. Left Internal Carotid Artery: Less than 50% diameter stenosis. Velocity criteria are extrapolated from diameter data as defined by the Society of Radiologists in Ul trasound Consensus Conference, Radiology 2003; 229;340-346. NO STENOSIS (NORMAL) - Plaque = none; ICA PSV < 125 cm/sec; ICA/CCA PSV Ratio < 2.0 <50% STENOSIS - Plaque < 50%; ICA PSV < 125 cm/sec; ICA/CCA PSV Ratio < 2.0 50-69% STENOSIS - Plaque > 50%; ICA PSV = 125-230 cm/sec; ICA/CCA PSV Ratio = 2.0-4.0 >70% BUT <100% STENOSIS - Plaque > 50%; ICA PSV > 230 cm/sec; ICA/CCA PSV Ratio > 4.0 NEAR OCCLUSION - Plaque = visible lumen; ICA PSV = high/low/none; ICA/CCA PSV Ratio = variable TOTAL OCCLUSION - Plaque = no lumen; ICA PSV = none; ICA/CCA PSV Ratio = N/A Scribed by: Karime Mcneill RDMS, RVT, RMSKS Scribed: 05/09/2021 10:09 AM I have reviewed the images, agree with this report, and edited this report as needed. Signer Name: Temo Coley MD Signed: 05/09/2021 11:57 AM Workstation Name: [id number]
[2021-05-09] MEDS ORDERED: MANNITOL IV STA (14:30)
--- NOTE | 2021-05-09 15:08 | Magnetic Resonance Report ---
MRI BRAIN 05/09/2021 INDICATION / CLINICAL INFORMATION: stroke, CONFUSION. TECHNIQUE: Multiplanar, multisequence MR images of the brain were obtained. COMPARISON: CT brain 05/09/2021 FINDINGS: BRAIN / INTRACRANIAL CONTENTS: Unenhanced MR images of the brain demonstrate a prominent area of acut e cortical ischemic injury involving the posterior aspect of the left temporal lobe, extending upward into the left parietal lobe. Restricted diffusion is present diffusely involving cortical and subcor tical white matter over an overall length of approximately 9.7 cm. There is cortical edema as evidenc e by T2-weighted signal change, and loss of sulcal definition. There is no evidence of hemorrhage. Underlying age-related atrophic changes and extensive diffuse microangiopathic white matter T2 weight ed signal changes present. There is no evidence of abnormal extra-axial fluid collection. EXTRACRANIAL: Unremarkable CRANIOCERVICAL JUNCTION: No significant abnormality. VASCULAR FLOW-VOIDS: No significant abnormality. IMPRESSION: Early post ischemic changes in left temporal and parietal lobe, consistent with the distribution of the posterior segment of the left MCA territory. No evidence of hemorrhage. Signer Name: Logan Martinez MD Signed: 05/09/2021 3:03 PM Workstation Name: [id number]
[2021-05-09] MEDS: MANNITOL IV SCH ×2 (18:19→23:38)
[2021-05-10] MEDS: HEPARIN 5,000 UNIT/1 ML VIAL SUB-Q SCH ×3 (05:08→21:29)
[2021-05-10 07:52] LABS: Basophils % (Auto) 0.4 % (0.0-1.8); Eosinophils # (Auto) 0.1 K/mm3 (0.0-0.4); Eosinophils % (Auto) 0.7 % (0.0-4.3); Hemoglobin 15.5 gm/dl (11.8-15.2); Lymphocytes # (Auto) 1.8 K/mm3 (1.2-5.4); Lymphocytes % (Auto) 21.2 % (13.4-35.0); Mean Corpuscular HGB Conc 34 % (32-34); Mean Corpuscular Volume 93 fl (84-94); Monocytes # (Auto) 0.8 K/mm3 (0.0-0.8); Monocytes % (Auto) 9.5 % (0.0-7.3); Platelet Count 165 K/mm3 (140-440); Red Blood Count 4.93 M/mm3 (3.65-5.03); Red Cell Distribution Width 13.2 % (13.2-15.2)
[2021-05-10 08:09] LABS: BUN/Creatinine Ratio 8; Blood Urea Nitrogen 7 mg/dL (9-20); Calcium 8.8 mg/dL (8.4-10.2); Hemolysis Index 15
[2021-05-10] MEDS: INSULIN LISPRO 100 UNIT/ML SUB-Q SCH ×4 (08:28→22:12)
[2021-05-10 08:58] LABS: Chol/HDL Ratio 7.57 %
--- NOTE | 2021-05-10 09:45 | Event Note ---
Date: 05/10/[address] 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
--- NOTE | 2021-05-10 10:12 | Electrocardiograph Report ---
[facility] Test Date: 2021-05-09 Test Time: 01:49:16 Pat Name: ISAMAR LEE Department: Room: A256 Gender: M Tong Hooker: NURSE : 1950 Requested By: STEPHANE YOO Order Number: [id number] Reading MD: Yair Willett Measurements Intervals [place] Rate: 77 P: 52 [place]: 148 QRS: -33 QRSD: 94 T: 54 QT: 403 QTc: 457 Interpretive Statements Sinus rhythm Probable left atrial enlargement Inferior infarct, old Anterior infarct, old No previous ECG available for comparison Electronically Signed On 05-10-2021 10:12:05 EST by Yair Willett
--- NOTE | 2021-05-10 10:42 | Consultation ---
History of Present Illness - Reason for Consult Consult date: 05/10/21 mannitol needed for possible edema Requesting physician: ISATU PABON - History of Present Illness 70 y/o male presented with stroke like symptoms on 05/09. Unknown start time and last known well time so not a candidate for TPA. MRI consistent with stroke in MCA region. Patient can follow simple commands but not able to answer questions verbally. Neurology assessed in ED and now neurology has seen for management. Given size of stroke, they are concerned for development of edema and have requested ICU transfer to mannitol administration and qshift neuro checks per their note. Past History Past Medical History: diabetes, hypertension Past Surgical History: No surgical history Social history: no significant social history Family history: no significant family history Medications and Allergies Allergies Allergy/AdvReac Type Severity Reaction Status Date / Time No Known Allergies Allergy Verified 05/09/21 01:02 Active Meds: Active Medications Acetaminophen (Acetaminophen 325 Mg Tab) 650 mg PO Q4H PRN PRN Reason: Pain, Mild (1-3) Aspirin (Aspirin Ec 81 Mg Tab) 81 mg PO QDAY [facility] Atorvastatin Calcium (Atorvastatin 40 Mg Tab) 40 mg PO QHS [facility] Last Admin: 05/09/21 23:38 Dose: 40 mg Bisacodyl (Bisacodyl 10 Mg Rect Supp) 10 mg VT QDAY PRN PRN Reason: Constipation Dextrose (Dextrose 10% *Hypoglycemia) 0 ml IV DIRECT PRN; Protocol PRN Reason: Hypoglycemia Heparin Sodium (Porcine) (Heparin 5,000 Unit/1 Ml Vial) 5,000 unit SUB-Q Q8HR [facility] Last Admin: 05/10/21 05:08 Dose: 5,000 unit Mannitol 25 gm/ Miscellaneous (Information) 125 mls @ 125 mls/hr IV QID [facility] Stop: 05/12/21 14:59 Last Admin: 05/09/21 23:38 Dose: 125 mls/hr Insulin Human Lispro (Insulin Lispro 100 Unit/Ml) 0 unit SUB-Q ACHS [facility]; Protocol Last Admin: 05/10/21 08:28 Dose: 4 unit Magnesium Hydroxide (Magnesium Hydroxide (Mom) Oral Liqd Udc) 30 ml PO Q4H PRN PRN Reason: Constipation Metoclopramide HCl (Metoclopramide 10 Mg Tab) 10 mg PO Q6H PRN PRN Reason: Nausea And Vomiting Morphine Sulfate (Morphine 2 Mg/1 Ml Inj) 2 mg IV Q4H PRN PRN Reason: Pain, Moderate (4-6) Morphine Sulfate (Morphine 4 Mg/1 Ml Inj) 4 mg IV Q4H PRN PRN Reason: Pain , Severe (7-10) Ondansetron HCl (Ondansetron 4 Mg/2 Ml Inj) 4 mg IV Q8H PRN PRN Reason: Nausea And Vomiting Promethazine HCl (Promethazine 25 Mg Rect Supp) 25 mg VT Q6H PRN PRN Reason: Nausea And Vomiting Sodium Chloride (Sodium Chloride 0.9% 10 Ml Flush Syringe) 10 ml IV PRN PRN PRN Reason: LINE FLUSH Review of Systems All systems: negative Exam - Constitutional Vitals: Temp Pulse Resp BP Pulse Ox 99.9 F H 77 17 152/99 100 05/10/21 08:00 05/10/21 09:21 05/10/21 09:21 05/10/21 09:21 05/10/21 08:11 General appearance: Present: no acute distress, well-nourished - EENT Eyes: Present: PERRL, EOM intact ENT: hearing intact - Neck Neck: Present: supple, normal ROM - Respiratory Respiratory effort: normal Respiratory: bilateral: CTA - Cardiovascular Rhythm: regular Heart Sounds: Present: S1 & S2 - Extremities Extremities: no ischemia, pulses intact - Abdominal General gastrointestinal: Present: soft, non-tender Male genitourinary: Present: deferred - Rectal Rectal Exam: deferred - Integumentary Integumentary: Present: clear, warm, dry Results - Labs CBC & Chem 7: 05/10/21 06:33 05/10/21 06:33 Labs: Abnormal lab results 05/09/21 05/09/21 05/10/21 Range/Units 15:50 20:49 06:33 Hgb 15.5 H (11.8-15.2) gm/dl Hct 46.0 H D (35.5-45.6) % [place] % (Auto) 9.5 H (0.0-7.3) % Sodium (137-145) mmol/L Carbon Dioxide (22-30) mmol/L BUN (9-20) mg/dL Glucose (75-100) mg/dL POC Glucose 387 H 230 H (70-105) mg/dL Cholesterol (50-199) mg/dL LDL Cholesterol Direct (50-130) mg/dL HDL Cholesterol (40-59) mg/dL 05/10/21 05/10/21 05/10/21 Range/Units 06:33 06:33 08:11 Hgb (11.8-15.2) gm/dl Hct (35.5-45.6) % [place] % (Auto) (0.0-7.3) % Sodium 136 L (137-145) mmol/L Carbon Dioxide 19 L (22-30) mmol/L BUN 7 L (9-20) mg/dL Glucose 235 H (75-100) mg/dL POC Glucose 267 H (70-105) mg/dL Cholesterol 265 H (50-199) mg/dL LDL Cholesterol Direct 212 H (50-130) mg/dL HDL Cholesterol 35 L (40-59) mg/dL Assessment and Plan 70 y/o male with large stroke 1. Mannitol with monitoring 2. Check Na and serum osms frequently 3. Per Neuro only needs q shift neuro checks 4. BP control 5. need to obtain home medication list and restart home meds 6. Guarded prognosis.
[2021-05-10] MEDS: MANNITOL IV SCH ×4 (10:53→22:06)
[2021-05-10] MEDS: ASPIRIN EC 81 MG TAB PO SCH (10:53)
--- NOTE | 2021-05-10 12:46 | Progress Note ---
Assessment and Plan - Patient Problems 89-year-old -German male with known history of hypertension, diabetes mellitus presenting to the emergency room today with altered mental status and strokelike symptoms. Patient's family was said to have noticed him walking into the [facility] and seems to be confused and therefore called EMS. Initial blood pressure upon arrival of EMS was 150/100 and blood glucose was 364. Symptoms were said to have started about dinnertime earlier in the evening. # Acute CVA (cerebrovascular accident) -pt. 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 - Focal area of moderate to high-grade narrowing seen in the nondominant left vertebral artery. CT angiogram of the neck reveals: - Narrowing seen in the left subclavian/axillary artery, as described above. - No significant narrowing seen in the common or internal carotid arteries. - Atherosclerotic disease seen in the vertebral arteries with areas of moderate narrowing seen near their origins. -echo is noted as well as carotid US -LDL and A1C are pending -he is started on ASA and Lipitor -In ICU due to large CVA lesion the chance of edema can not be excluded/ stable - Mannitol 40 gm IV now then 25 gm qid X 3 days -better control of suger -neuro check q shift -CT brain repeat AM is pending -and consider neurosurgical openion if change in mental status or abnormal CT brain -serum osmolarity daily --today 297 -NA#146 -ECHO is with EF#20-25 % -- consider cardiology evaluation ? pt. is possibly a candidate for AC # Hyperglycemia -suger control<150 -A1C # Hypertension - allow for permisive HTN<180/120 for 24 hours -then BP<150/80 gradual control #Fluent aphasia -We request speech therapy evaluation and recommendations. # DVT prophylaxis -Patient placed on subcutaneous heparin. # Full code status -Patient is full code. D/W PCP and Nurse on floor Subjective Date of service: 05/10/21 Interval history: alert disoriented/aphasic , move all limbs repeat CT brain is pending MRI brain report is noted started on mannitol osmolarity is 279 Na today #146 LDL#112 echo is with EF#20-30% Objective - Vital Sign Vital Signs - 12hr 05/10/21 05/10/21 05/10/21 00:41 00:51 01:00 Temperature Pulse Rate 80 69 73 Pulse Rate [ From Monitor] Respiratory 21 18 19 Rate Blood Pressure 132/81 132/81 144/97 O2 Sat by Pulse 98 95 Oximetry 05/10/21 05/10/21 05/10/21 01:11 01:21 01:31 Temperature Pulse Rate 70 70 75 Pulse Rate [ From Monitor] Respiratory 14 17 19 Rate Blood Pressure 144/97 144/97 144/97 O2 Sat by Pulse 97 99 98 Oximetry 05/10/21 05/10/21 05/10/21 01:41 01:51 02:00 Temperature Pulse Rate 77 76 76 Pulse Rate [ From Monitor] Respiratory 17 17 12 Rate Blood Pressure 144/97 144/97 139/92 O2 Sat by Pulse 98 99 Oximetry 05/10/21 05/10/21 05/10/21 02:11 02:21 02:31 Temperature Pulse Rate 75 73 68 Pulse Rate [ From Monitor] Respiratory 17 17 14 Rate Blood Pressure 139/92 139/92 139/92 O2 Sat by Pulse 99 97 99 Oximetry 05/10/21 05/10/21 05/10/21 02:41 02:51 03:00 Temperature Pulse Rate 70 73 73 Pulse Rate [ From Monitor] Respiratory 18 14 19 Rate Blood Pressure 139/92 139/92 145/99 O2 Sat by Pulse 99 97 99 Oximetry 05/10/21 05/10/21 05/10/21 03:11 03:17 03:21 Temperature 99.3 F Pulse Rate 69 69 Pulse Rate [ From Monitor] Respiratory 19 18 Rate Blood Pressure 145/99 145/99 O2 Sat by Pulse 98 98 Oximetry 05/10/21 05/10/21 05/10/21 03:31 03:41 03:51 Temperature Pulse Rate 69 76 77 Pulse Rate [ From Monitor] Respiratory 10 L 12 10 L Rate Blood Pressure 145/99 145/99 145/99 O2 Sat by Pulse 99 98 99 Oximetry 05/10/21 05/10/21 05/10/21 04:00 04:11 04:21 Temperature Pulse Rate 73 73 73 Pulse Rate [ 75 From Monitor] Respiratory 19 12 16 Rate Blood Pressure 133/85 133/85 133/85 O2 Sat by Pulse 100 98 98 Oximetry 05/10/21 05/10/21 05/10/21 04:31 04:41 04:51 Temperature Pulse Rate 71 73 75 Pulse Rate [ From Monitor] Respiratory 17 15 13 Rate Blood Pressure 133/85 133/85 133/85 O2 Sat by Pulse 99 99 98 Oximetry 05/10/21 05/10/21 05/10/21 05:00 05:11 05:21 Temperature Pulse Rate 72 76 73 Pulse Rate [ From Monitor] Respiratory 14 20 16 Rate Blood Pressure 140/111 140/111 140/111 O2 Sat by Pulse 99 99 Oximetry 05/10/21 05/10/21 05/10/21 05:31 05:41 05:51 Temperature Pulse Rate 74 68 77 Pulse Rate [ From Monitor] Respiratory 22 17 17 Rate Blood Pressure 140/111 140/111 140/111 O2 Sat by Pulse 100 98 99 Oximetry 05/10/21 05/10/21 05/10/21 06:00 06:11 06:21 Temperature Pulse Rate 69 68 74 Pulse Rate [ From Monitor] Respiratory 13 14 15 Rate Blood Pressure 146/99 146/99 146/99 O2 Sat by Pulse 99 100 Oximetry 05/10/21 05/10/21 05/10/21 06:31 06:41 06:51 Temperature Pulse Rate 90 74 73 Pulse Rate [ From Monitor] Respiratory 17 30 H 22 Rate Blood Pressure 146/99 146/99 146/99 O2 Sat by Pulse 98 98 99 Oximetry 05/10/21 05/10/21 05/10/21 07:00 07:11 07:21 Temperature Pulse Rate 71 72 73 Pulse Rate [ From Monitor] Respiratory 19 17 17 Rate Blood Pressure 157/97 157/97 157/97 O2 Sat by Pulse 99 99 99 Oximetry 05/10/21 05/10/21 05/10/21 07:31 07:41 07:51 Temperature Pulse Rate 70 63 81 Pulse Rate [ From Monitor] Respiratory 21 25 H 24 Rate Blood Pressure 157/97 157/97 157/97 O2 Sat by Pulse 99 100 98 Oximetry 05/10/21 05/10/21 05/10/21 08:00 08:01 08:11 Temperature 99.9 F H Pulse Rate 87 84 Pulse Rate [ From Monitor] Respiratory 16 18 Rate Blood Pressure 157/97 157/97 O2 Sat by Pulse 100 Oximetry 05/10/21 05/10/21 05/10/21 08:21 08:31 08:41 Temperature Pulse Rate 72 87 74 Pulse Rate [ From Monitor] Respiratory 11 L 14 19 Rate Blood Pressure 157/97 157/97 167/104 O2 Sat by Pulse Oximetry 05/10/21 05/10/21 05/10/21 08:51 09:00 09:11 Temperature Pulse Rate 76 71 78 Pulse Rate [ From Monitor] Respiratory 20 22 19 Rate Blood Pressure 167/104 152/99 152/99 O2 Sat by Pulse Oximetry 05/10/21 09:21 Temperature Pulse Rate 77 Pulse Rate [ From Monitor] Respiratory 17 Rate Blood Pressure 152/99 O2 Sat by Pulse Oximetry - General Apperance Constitutional: comfortable - EENT EENT: PERRL, mucous membranes moist - Respiratory Respiratory: lungs clear, rhonchi - Cardiovascular Cardiovascular: regular rate, normal S1, normal S2 Extremities: no peripheral edema bilat, no clubbing, cyanosis - Gastrointestinal Gastrointestinal: normoactive bowel sounds - Integumentary Integumentary: normal - Neurologic Cranial nerve examination: PERRL, EOMI, facial droop, other (possible right visual field deficit) Speech examination: sensory aphasia Detailed motor examination: grossly full strength in - Laboratory Findings CBC and BMP: 05/10/21 06:33 05/10/21 06:33 Abnormal Lab Findings: Abnormal Labs 05/09/21 05/09/21 05/09/21 01:28 01:28 01:31 Hgb Hct MCH 34 H MCHC 37 H [place] % (Auto) 7.5 H VBG pH 7.484 H Sodium 133 L Chloride 96.8 L Carbon Dioxide BUN Glucose 451 H POC Glucose Cholesterol LDL Cholesterol Direct HDL Cholesterol 05/09/21 05/09/21 05/09/21 03:08 15:50 20:49 Hgb Hct MCH MCHC [place] % (Auto) VBG pH Sodium Chloride Carbon Dioxide BUN Glucose POC Glucose 376 H 387 H 230 H Cholesterol LDL Cholesterol Direct HDL Cholesterol 05/10/21 05/10/21 05/10/21 06:33 06:33 06:33 Hgb 15.5 H Hct 46.0 H D MCH MCHC [place] % (Auto) 9.5 H VBG pH Sodium 136 L Chloride Carbon Dioxide 19 L BUN 7 L Glucose 235 H POC Glucose Cholesterol 265 H LDL Cholesterol Direct 212 H HDL Cholesterol 35 L 05/10/21 05/10/21 08:11 11:40 Hgb Hct MCH MCHC [place] % (Auto) VBG pH Sodium Chloride Carbon Dioxide BUN Glucose POC Glucose 267 H 275 H Cholesterol LDL Cholesterol Direct HDL Cholesterol
--- NOTE | 2021-05-10 15:54 | Progress Note ---
Assessment and Plan Assessment and plan: This is a 70-year-old male with HTN, DM mated with acute CVA Neuro: Acute CVA -Neurology consulted, appreciate recommendations -CT brain on admit unremarkable -CTA brain showed branch MCA occlusion in the posterior sylvian fissure region on the left, focal area of narrowing in the right HOME CARE AIDE, focal area of moderate to high-grade narrowing seen in the nondominant left vertebral artery -CTA neck showed narrowing in the left subclavian/axillary artery, no significant narrowing seen in the common or internal carotid arteries, atherosclerotic disease seen in the vertebral arteries with areas of moderate narrowing -Lipid profile noted -Aspirin and Lipitor -Hemoglobin A1c pending -Started on mannitol 40 mg IV x1 followed by 225 g 4 times daily for 3 days -Sodium and serum osmole 4 times daily -Per neurology neurochecks every shift -Repeat CT head pending -Allow permissive hypertension, BP less than 180/120 for 24 hours and then BP greater than 150/80 achieved with gradual control -ST/PT/OT consult: ST cleared for pured diet with thin liquids, PT recommends home health PT, OT consult pending Cardiac: h/o HTN, HFrEF -Allow permissive hypertension, BP less than 180/120 for 24 hours and then BP greater than 150/80 achieved with gradual control -Blood pressure monitoring per protocol -Echocardiogram shows dilated cardiomyopathy, LVEF 20 to 25%, mild pulmonary hypertension -Restart home cardioprotective medications when obtained -CCM consulted, appreciate recommendations Respiratory: NAD -Supplemental oxygen as needed -Pulmonary hygiene -SPO2 monitoring GI: NAD -24 hours-no I&O recorded -PPI -ST cleared for pured diet with thin liquids -BR: Colace : Hyponatremia, metabolic acidosis -Strict intake and output -Avoid nephrotoxic medications -Trend BMP ID: NAD -Monitor WBC and temperature curve Endo: Hyperglycemia, h/o DM -Avoid hypoglycemia -SSI -Accu-Cheks AC at bedtime -Long-acting insulin, titrate as needed -Hemeglobin A1c pending Heme: NAD -Trend CBC -Transfuse hemoglobin less than 7 -Monitor for signs of bleeding -SCDs to BLE while in bed -Heparin subcu The high probability of a clinically significant, sudden or life threatening deterioration of the [neuro] system(s) required my full and direct attention, intervention and personal management. The aggregate critical care time was [60] minutes. This time is in addition to time spent performing reported procedures but includes the following: [x] Data Review and interpretation [x] Patient assessment and monitoring of vital signs [x] Documentation [x] Medication orders and management Disposition Plan: icu Total Time Spent with Patient (Minutes): 60 History Interval history: This is 70-year-old male with HTN, DM who presented to emergency department on 05/09 with AMS and strokelike symptoms, and per family was noticed to have be walking into the [facility] and confused therefore EMS was called. Initial blood pr essure on arrival of EMS was 150/100 and glucose was 364 and family stated the symptoms started around dinnertime earlier in the evening. Recommend emergency department included CT head which showed no acute abnormality, CTA head showed branch MCA occlusion, focal area of narrowing in the right HOME CARE AIDE, focal area of moderate to high-grade narrowing in the nondominant left vertebral artery and CTA neck showed narrowing of the left subclavian/axillary artery with arthrosclerotic disease seen in the vertebral arteries with areas of moderate narrowing and lab work was significant for hyperglycemia of 451. Patient was evaluated by teleneurologist and was scheduled for MRI brain, carotid Dopplers a nd echocardiogram, hemoglobin A1c and lipid profile. Patient passed bedside swallow evaluation in the ED and received aspirin. Patient was admitted to the hospital service with consults to neurology for acute CVA. Hospital course to date: 05/09: Patient was transferred to ICU from telemetry due to large CVA lesion and chance of edema cannot be excluded and started on mannitol 40 mg IV now and 25 mg 4 times daily for 3 days with hourly neuro checks and repeat CT head in the a.m. 05/10: Patient has hyponatremia, started on mannitol for 4 days per neurology, CT head pending. Hospitalist Physical - Constitutional Vitals: Temp Pulse Resp BP Pulse Ox 99.2 F 78 18 110/70 100 05/10/21 12:00 05/10/21 13:01 05/10/21 13:01 05/10/21 13:01 05/10/21 12:51 General appearance: Present: no acute distress, well-nourished - EENT Eyes: Present: PERRL, EOM intact ENT: clear oral mucosa - Neck Neck: Present: normal ROM - Respiratory Respiratory effort: normal Respiratory: bilateral: CTA - Cardiovascular Rhythm: regular Heart Sounds: Present: S1 & S2. Absent: systolic murmur, diastolic murmur - Extremities Extremities: no ischemia, pulses intact, pulses symmetrical, No edema, normal temperature, normal color, Full ROM Peripheral Pulses: within normal limits - Abdominal General gastrointestinal: soft, non-tender, non-distended, normal bowel sounds - Integumentary Integumentary: Present: warm, dry - Psychiatric Psychiatric: cooperative - Neurologic Neurologic: no focal deficits, moves all extremities, other (word salad, ap hasia) - Allied Health Allied health notes reviewed: nursing, PT, ST, RT, social work HEART Score - HEART Score Troponin: Troponin T < 0.010 ng/mL (0.00-0.029) 05/09/21 01:28 Results - Labs CBC & Chem 7: 05/10/21 06:33 05/10/21 12:54 Labs: Laboratory Last Values WBC 8.3 K/mm3 (4.5-11.0) 05/10/21 06:33 RBC 4.93 M/mm3 (3.65-5.03) 05/10/21 06:33 Hgb 15.5 gm/dl (11.8-15.2) H 05/10/21 06:33 Hct 46.0 % (35.5-45.6) H D 05/10/21 06:33 MCV 93 fl (84-94) 05/10/21 06:33 MCH 32 pg (28-32) 05/10/21 06:33 MCHC 34 % (32-34) 05/10/21 06:33 RDW 13.2 % (13.2-15.2) 05/10/21 06:33 Plt Count 165 K/mm3 (140-440) 05/10/21 06:33 Lymph % (Auto) 21.2 % (13.4-35.0) 05/10/21 06:33 [place] % (Auto) 9.5 % (0.0-7.3) H 05/10/21 06:33 Eos % (Auto) 0.7 % (0.0-4.3) 05/10/21 06:33 Baso % (Auto) 0.4 % (0.0-1.8) 05/10/21 06:33 Lymph # (Auto) 1.8 K/mm3 (1.2-5.4) 05/10/21 06:33 [place] # (Auto) 0.8 K/mm3 (0.0-0.8) 05/10/21 06:33 Eos # (Auto) 0.1 K/mm3 (0.0-0.4) 05/10/21 06:33 Baso # (Auto) 0.0 K/mm3 (0.0-0.1) 05/10/21 06:33 Seg Neutrophils % 68.2 % (40.0-70.0) 05/10/21 06:33 Seg Neutrophils # 5.7 K/mm3 (1.8-7.7) 05/10/21 06:33 PT 14.0 Sec. (12.2-14.9) 05/09/21 01:28 INR 0.97 (0.87-1.13) 05/09/21 01:28 APTT 27.7 Sec. (24.2-36.6) 05/09/21 01:28 Thrombin Time 16.9 Sec. (15.1-19.6) 05/09/21 01:28 VBG pH 7.484 (7.320-7.420) H 05/09/21 01:31 Sodium 130 mmol/L (137-145) L 05/10/21 12:54 Potassium 4.0 mmol/L (3.6-5.0) 05/10/21 06:33 Chloride 98.7 mmol/L (98-107) 05/10/21 06:33 Carbon Dioxide 19 mmol/L (22-30) L 05/10/21 06:33 Anion Gap 22 mmol/L 05/10/21 06:33 BUN 7 mg/dL (9-20) L 05/10/21 06:33 Creatinine 0.9 mg/dL (0.8-1.3) 05/10/21 06:33 Estimated GFR > 60 ml/min 05/10/21 06:33 BUN/Creatinine Ratio 8 % 05/10/21 06:33 Glucose 235 mg/dL (75-100) H 05/10/21 06:33 POC Glucose 275 mg/dL (70-105) H 05/10/21 11:40 Osmolality 297 Mosm/kg 05/10/21 12:54 Calcium 8.8 mg/dL (8.4-10.2) 05/10/21 06:33 Total Bilirubin 0.50 mg/dL (0.1-1.2) 05/09/21 01:28 AST 9 units/L (5-40) 05/09/21 01:28 ALT 7 units/L (7-56) 05/09/21 01:28 Alkaline Phosphatase 93 units/L (35-129) 05/09/21 01:28 Total Creatine Kinase 88 units/L (55-170) 05/09/21 01:28 CK-MB (CK-2) 2.0 ng/mL (0.0-4.0) 05/09/21 01:28 CK-MB (CK-2) Rel Index 2.2 (0-4) 05/09/21 01:28 Troponin T < 0.010 ng/mL (0.00-0.029) 05/09/21 01:28 Total Protein 6.4 g/dL (6.3-8.2) 05/09/21 01:28 Albumin 3.9 g/dL (3.9-5) 05/09/21 01:28 Albumin/Globulin Ratio 1.6 % 05/09/21 01:28 Triglycerides 123 mg/dL (2-149) 05/10/21 06:33 Cholesterol 265 mg/dL (50-199) H 05/10/21 06:33 LDL Cholesterol Direct 212 mg/dL (50-130) H 05/10/21 06:33 HDL Cholesterol 35 mg/dL (40-59) L 05/10/21 06:33 Cholesterol/HDL Ratio 7.57 % 05/10/21 06:33 Urine Color Straw (Yellow) 05/09/21 Unknown Urine Turbidity Clear (Clear) 05/09/21 Unknown Urine pH 7.0 (5.0-7.0) 05/09/21 Unknown Ur Specific [place] 1.028 (1.003-1.030) 05/09/21 Unknown Urine Protein 30 mg/dl mg/dL (Negative) 05/09/21 Unknown Urine Glucose (UA) >=500 mg/dL (Negative) 05/09/21 Unknown Urine Ketones Neg mg/dL (Negative) 05/09/21 Unknown Urine Blood Neg (Negative) 05/09/21 Unknown Urine Nitrite Neg (Negative) 05/09/21 Unknown Urine Bilirubin Neg (Negative) 05/09/21 Unknown Urine Urobilinogen < 2.0 mg/dL (<2.0) 05/09/21 Unknown Ur Leukocyte Esterase Neg (Negative) 05/09/21 Unknown Urine WBC (Auto) 1.0 /HPF (0.0-6.0) 05/09/21 Unknown Urine RBC (Auto) 2.0 /HPF (0.0-6.0) 05/09/21 Unknown [place]/IV: Voiding Method Condom Catheter Active Medications - Current Medications Current Medications: Generic Name Dose Route Start Last Admin Trade Name Freq PRN Reason Stop Dose Admin Acetaminophen 650 mg 05/09/21 03:09 Acetaminophen 325 Mg Tab PO Q4H PRN Pain, Mild (1-3) Aspirin 81 mg 05/10/21 10:00 05/10/21 10:53 Aspirin Ec 81 Mg Tab PO 81 mg QDAY GABRIELE Administration Atorvastatin Calcium 40 mg 05/09/21 22:00 05/09/21 23:38 Atorvastatin 40 Mg Tab PO 40 mg QHS GABRIELE Administration Bisacodyl 10 mg 05/09/21 03:09 Bisacodyl 10 Mg Rect Supp VT QDAY PRN Constipation Dextrose 0 ml 05/09/21 03:33 Dextrose 10% *Hypoglycemia IV DIRECT PRN Hypoglycemia Protocol Heparin Sodium (Porcine) 5,000 unit 05/09/21 06:00 05/10/21 15:04 Heparin 5,000 Unit/1 Ml Vial SUB-Q 5,000 unit Q8HR GABRIELE Administration Mannitol 25 gm/ Miscellaneous 125 mls @ 125 mls/hr 05/09/21 18:00 05/10/21 14:59 Information IV 05/12/21 14:59 125 mls/hr QID GABRIELE Administration Insulin Human Lispro 0 unit 05/09/21 07:30 05/10/21 14:59 Insulin Lispro 100 Unit/Ml SUB-Q 6 unit ACHS GABRIELE Administration Protocol Magnesium Hydroxide 30 ml 05/09/21 03:09 Magnesium Hydroxide (Mom) Oral Liqd Udc PO Q4H PRN Constipation Metoclopramide HCl 10 mg 05/09/21 03:09 Metoclopramide 10 Mg Tab PO Q6H PRN Nausea And Vomiting Morphine Sulfate 2 mg 05/09/21 03:09 Morphine 2 Mg/1 Ml Inj IV Q4H PRN Pain, Moderate (4-6) Morphine Sulfate 4 mg 05/09/21 03:09 Morphine 4 Mg/1 Ml Inj IV Q4H PRN Pain , Severe (7-10) Ondansetron HCl 4 mg 05/09/21 03:09 Ondansetron 4 Mg/2 Ml Inj IV Q8H PRN Nausea And Vomiting Promethazine HCl 25 mg 05/09/21 03:09 Promethazine 25 Mg Rect Supp VT Q6H PRN Nausea And Vomiting Sodium Chloride 10 ml 05/09/21 03:09 Sodium Chloride 0.9% 10 Ml Flush Syringe IV PRN PRN LINE FLUSH Nutrition/Malnutrition Assess - Dietary Evaluation Nutrition/Malnutrition Findings: Nutrition Notes Start: 05/09/21 13:59 Freq: Status: Active Protocol: Document 05/09/21 13:59 OLLIE (Rec: 05/09/21 14:19 NHALL [id number]) Nutrition Notes Need for Assessment generated from: MD Order,Education Initial or Follow up Brief Note Current Diagnosis Diabetes,Hypertension,Stroke Other Pertinent Diagnosis AMS, Expressive aphasia Current Diet Cardiac Labs/Tests BG 451 Height 5 ft 11 in Weight 86.183 kg [place] Body Weight (kg) 78.18 BMI 26.4 Subjective/Other Information RD consulted for diet education. Pt not appropriate for diet education at this time. MANAGER SOFTWARE evaluation ordered. Burn Absent Trauma Absent Minimum of two criteria No Is patient on ventilator? No Is Patient Ambulatory and/or Out of Bed No REE-([facility]-confined to bed) [phone] Calculation Used for Recommendations [facility] Additional Notes Pro needs 1-1.2g/k-103g/ day Fluid needs 1ml/kcal Nutrition Intervention Follow-Up By: 05/12/21 Additional Comments F/U: intakes, MANAGER SOFTWARE evaluation
--- NOTE | 2021-05-10 17:17 | Cat Scan Report ---
CT BRAIN: 05/10/2021 INDICATION / CLINICAL INFORMATION: f/u cva. COMPARISON: MRI brain 05/09/2021. CT brain 05/09/2021 FINDINGS: BRAIN/INTRACRANIAL STRUCTURES: Unenhanced CT images of the brain were obtained. There is been interval evolutionary changes in the CT appearance of the prominent left temporal occip ital cortical infarct, which is now clearly visible by CT as a large area of cortical and subcortical hypoattenuation. There is mass effect, with evidence of some compression of the left lateral ventric le, and interval development of approximately 4 to 5 mm of midline shift. There is no evidence of hemorrhage. Again seen is prominent chronic diffuse white matter hypoattenuation and evidence of underlying age-r elated cortical atrophy. EXTRACRANIAL STRUCTURES: Unremarkable. IMPRESSION: Evolving post ischemic changes and increasing mass effect. No evidence of hemorrhage. All CT scans at this location are performed using dose reduction to ALARA by means of automated expos ure control. Signer Name: Logan Martinez MD Signed: 05/10/2021 5:13 PM Workstation Name: [id number]
--- NOTE | 2021-05-10 17:39 | Event Note ---
Date: 05/10/21 MRI brain shows an approximate 4 to 5 mm midline shift with evidence of some compression to the left lateral ventricle. Neurosurgery, Dr. Jessica contacted and informed of results who recommended transfer to tertiary center Dr. Nunez contacted and informed of results of CT head and relayed Dr. Jessica recommendation of transfer to tertiary center. Stated he will place consult to transfer center and provide neurology, Dr. Max contact information. Neurology Dr. Sierra informed of results who recommended neurosurgery consult and agrees with recommendation of transfer. [facility] Dr. Dan contacted and informed of CT head result, Dr. Jessica recommendation. Attempted to call RN to get update on neuro status however call was not answe red. Will try again.
[2021-05-10] MEDS: DOCUSATE SODIUM 100 MG CAP PO SCH (21:29)
[2021-05-10] MEDS ORDERED: INSULIN GLARGINE 100 UNITS/ML SUB-Q SCH (22:00)
[2021-05-11 00:05] LABS: BUN/Creatinine Ratio 8; Blood Urea Nitrogen 7 mg/dL (9-20); Calcium 8.6 mg/dL (8.4-10.2); Hemolysis Index 2
[2021-05-11 05:04] LABS: BUN/Creatinine Ratio 8; Blood Urea Nitrogen 7 mg/dL (9-20); Calcium 9.3 mg/dL (8.4-10.2); Hemolysis Index 8
[2021-05-11] MEDS: HEPARIN 5,000 UNIT/1 ML VIAL SUB-Q SCH ×3 (05:29→21:45)
[2021-05-11] MEDS: INSULIN LISPRO 100 UNIT/ML SUB-Q SCH ×4 (07:53→21:45)
[2021-05-11 10:34] LABS: BUN/Creatinine Ratio 10; Blood Urea Nitrogen 9 mg/dL (9-20); Calcium 9.3 mg/dL (8.4-10.2); Hemolysis Index 33
--- NOTE | 2021-05-11 10:49 | Progress Note ---
Assessment and Plan - Patient Problems 89-year-old -[place] male with known history of hypertension, diabetes mellitus presenting to the emergency room today with altered mental status and strokelike symptoms. Patient's family was said to have noticed him walking into the [place] and seems to be confused and therefore called EMS. Initial blood pressure upon arrival of EMS was 150/100 and blood glucose was 364. Symptoms were said to have started about dinnertime earlier in the evening. # Acute CVA (cerebrovascular accident) -pt. is with perceptive aphasia and or possible right visual neglect no focal weakness is noted -CT brain is unremarkable -CTA brain showed possibel posterior branch of left MCA occlusion in sylvian fissure region with focal narrowing in right [employer] noted. - Focal area of moderate to high-grade narrowing seen in the nondominant left vertebral artery. CT angiogram of the neck reveals: - Narrowing seen in the left subclavian/axillary artery, as described above. - No significant narrowing seen in the common or internal carotid arteries. - Atherosclerotic disease seen in the vertebral arteries with areas of moderate narrowing seen near their origins. -echo is noted as well as carotid US -LDL #212 and A1C #13 -he is started on ASA and Lipitor -In ICU due to large CVA lesion the chance of edema can not be excluded/ stable - Mannitol 40 gm IV now then 25 gm qid X 3 days -better control of suger -neuro check q shift -CT brain repeat AM is noted still same ,offecial report is pending -and consider neurosurgical openion if change in mental status -NA#134 -ECHO is with EF#20-25 % -- consider cardiology evaluation ? pt. is possibly a candidate for AC # Hyperglycemia -suger control<150 -A1C#13 # Hypertension - allow for permisive HTN<180/120 for 24 hours -then BP<150/80 gradual control #Fluent aphasia -We request speech therapy evaluation and recommendations. # DVT prophylaxis -Patient placed on subcutaneous heparin. # Full code status -Patient is full code. D/W PCP and Nurse on floor D/W NS in [facility] last night . Subjective Date of service: 05/11/21 Interval history: alert disoriented/aphasic , move all limbs repeat CT brain is noted increase swelling and shift 3-4mm,d/w [place] [facility] last night , they don,t see indication for transfer MRI brain report is noted Change mannitol to NA3% osmolarity need over 300 Na today #134 LDL#112 echo is with EF#20-30% Objective - Vital Sign Vital Signs - 12hr 05/10/21 05/10/21 05/10/21 22:50 23:00 23:10 Temperature Pulse Rate 72 69 70 Pulse Rate [ From Monitor] Respiratory 16 14 17 Rate Blood Pressure 160/88 153/93 153/93 O2 Sat by Pulse 97 99 99 Oximetry 05/10/21 05/10/21 05/10/21 23:20 23:30 23:40 Temperature Pulse Rate 74 76 70 Pulse Rate [ From Monitor] Respiratory 13 17 19 Rate Blood Pressure 153/93 153/93 153/93 O2 Sat by Pulse 95 96 94 Oximetry 05/10/21 05/11/21 05/11/21 23:50 00:00 01:00 Temperature 98.6 F Pulse Rate 69 69 70 Pulse Rate [ 76 From Monitor] Respiratory 16 18 17 Rate Blood Pressure 153/93 153/93 122/64 O2 Sat by Pulse 98 98 96 Oximetry 05/11/21 05/11/21 05/11/21 02:00 03:00 03:05 Temperature Pulse Rate 74 69 63 Pulse Rate [ From Monitor] Respiratory 19 20 Rate Blood Pressure 139/95 133/61 O2 Sat by Pulse 97 99 Oximetry 05/11/21 05/11/21 05/11/21 04:00 05:00 06:00 Temperature 99.2 F Pulse Rate 72 68 68 Pulse Rate [ 76 From Monitor] Respiratory 16 16 13 Rate Blood Pressure 144/89 123/74 123/74 O2 Sat by Pulse 99 99 96 Oximetry 05/11/21 05/11/21 05/11/21 07:00 07:16 08:00 Temperature 99.6 F Pulse Rate 70 78 Pulse Rate [ From Monitor] Respiratory 19 12 Rate Blood Pressure 142/85 137/79 O2 Sat by Pulse 98 97 Oximetry - General Apperance Constitutional: comfortable - EENT EENT: PERRL, mucous membranes moist - Respiratory Respiratory: chest non-tender, lungs clear, rhonchi - Cardiovascular Cardiovascular: regular rate, normal S1, normal S2 Extremities: no peripheral edema bilat, no clubbing, cyanosis - Gastrointestinal Gastrointestinal: normoactive bowel sounds - Integumentary Integumentary: normal - Neurologic Cranial nerve examination: PERRL, EOMI, intact, other (possible right visual neglect ) Speech examination: sensory aphasia Detailed motor examination: grossly full strength in - Laboratory Findings CBC and BMP: 05/10/21 06:33 05/11/21 09:22 Abnormal Lab Findings: Abnormal Labs 05/09/21 05/09/21 05/09/21 01:28 01:28 01:31 Hgb Hct MCH [address] [place] % (Auto) 7.5 H VBG pH 7.484 H Sodium 133 L Chloride 96.8 L Carbon Dioxide BUN Glucose 451 H POC Glucose Hemoglobin A1c Cholesterol LDL Cholesterol Direct HDL Cholesterol 05/09/21 05/09/21 05/09/21 03:08 15:50 20:49 Hgb Hct MCH MCHC [place] % (Auto) VBG pH Sodium Chloride Carbon Dioxide BUN Glucose POC Glucose 376 H 387 H 230 H Hemoglobin A1c Cholesterol LDL Cholesterol Direct HDL Cholesterol 05/10/21 05/10/21 05/10/21 06:33 06:33 06:33 Hgb 15.5 H Hct 46.[address] MCH MCHC [place] % (Auto) 9.5 H VBG pH Sodium 136 L Chloride Carbon Dioxide 19 L BUN 7 L Glucose 235 H POC Glucose Hemoglobin A1c Cholesterol 265 H LDL Cholesterol Direct 212 H HDL Cholesterol 35 L 05/10/21 05/10/21 05/10/21 08:11 11:40 12:54 Hgb Hct MCH MCHC [facility] % (Auto) VBG pH Sodium 130 L Chloride Carbon Dioxide BUN Glucose POC Glucose 267 H 275 H Hemoglobin A1c Cholesterol LDL Cholesterol Direct HDL Cholesterol 05/10/21 05/10/21 05/10/21 16:55 18:26 18:26 Hgb Hct MCH MCHC [facility] % (Auto) VBG pH Sodium 132 L Chloride Carbon Dioxide BUN Glucose POC Glucose 215 H Hemoglobin A1c 13.0 H Cholesterol LDL Cholesterol Direct HDL Cholesterol 05/10/21 05/10/21 05/11/21 21:40 23:31 04:[address] MCH MCHC [facility] % (Auto) VBG pH Sodium 131 L 134 L Chloride 96.2 L 97.9 L Carbon Dioxide 19 L 20 L BUN 7 L 7 L Glucose 232 H 199 H POC Glucose 227 H Hemoglobin A1c Cholesterol LDL Cholesterol Direct HDL Cholesterol 05/11/21 05/11/21 07:28 09:[address] MCH MCHC [facility] % (Auto) VBG pH Sodium 134 L Chloride 96.2 L Carbon Dioxide 21 L BUN Glucose 257 H POC Glucose 202 H Hemoglobin A1c Cholesterol LDL Cholesterol Direct HDL Cholesterol
[2021-05-11] MEDS: DOCUSATE SODIUM 100 MG CAP PO SCH ×2 (11:20→21:45)
[2021-05-11] MEDS: ASPIRIN EC 81 MG TAB PO SCH (11:20)
--- NOTE | 2021-05-11 11:47 | Cat Scan Report ---
CT head/brain wo con INDICATION / CLINICAL INFORMATION: 70 years Male; brain edema follow up. TECHNIQUE: Thin cut axial images obtained. Sagittal and coronal reconstructions performed. All CT scans at this location are performed using CT dose reduction for ALARA by means of automated exposure control. COMPARISON: 05/10/2021 FINDINGS: Significant edema seen in the left parietotemporal region and minimal portions of the left occipital lobe. There is also involvement of the left posterolateral gangliocapsular region. Edema has mildly p rogressed from prior, with slightly more mass effect and [id number] midline shift (which has incre ased from 3 to 5 mm at the level of the septum pellucidum). However, basal cisterns remain widely pat ent. There is mass effect on the left lateral ventricle. There is no evidence of hydrocephalus. No definitive signs of hemorrhagic transformation. Extensive white matter persists in both cerebral hemispheres. IMPRESSION: 1. Normal evolutionary changes in the left MCA territorial infarct, with mild increase in mass effect , as described above. Close follow-up is recommended. Signer Name: Kareem Brito MD, III Signed: 05/11/2021 10:25 AM Workstation Name: [id number]
[2021-05-11] MEDS ORDERED: SODIUM CHLORIDE 3% 500 ML IV SCH (12:00)
--- NOTE | 2021-05-11 13:27 | Progress Note ---
Assessment and Plan 70 y/o male with large stroke 05/11/21: Will ask neurosurgery to see patient as there are no available ICU beds in the city. Will speak with neurology about stopping mannitol and asking if they want hypertonic saline given CT reports from this am. Keppral not started on yesterday, will ask if this is still needed. Suggest continue q4 hour neuro checks and follow neurosurgery and neurology recs for today. Continue ICU monitoring. 1. Mannitol with monitoring 2. Check Na and serum osms frequently 3. Per Neuro only needs q shift neuro checks 4. BP control 5. need to obtain home medication list and restart home meds 6. Guarded prognosis. Subjective Date of service: 05/11/21 Interval history: Patient had MRI showing mid line shift. Neurology and neurosurgery both notified on yesterday. Clinically patient appears to be the same, no worsening of symptoms. Continues to be mannitol but with worsening edema now sodium is in the 130's. Objective - Constitutional Vitals: Vital Signs - 12hr 05/11/21 05/11/21 05/11/21 02:00 03:00 03:05 Temperature Pulse Rate 74 69 63 Pulse Rate [ From Monitor] Respiratory 19 20 Rate Blood Pressure 139/95 133/61 O2 Sat by Pulse 97 99 Oximetry 05/11/21 05/11/21 05/11/21 04:00 05:00 06:00 Temperature 99.2 F Pulse Rate 72 68 68 Pulse Rate [ 76 From Monitor] Respiratory 16 16 13 Rate Blood Pressure 144/89 123/74 123/74 O2 Sat by Pulse 99 99 96 Oximetry 05/11/21 05/11/21 05/11/21 07:00 07:16 08:00 Temperature 99.6 F Pulse Rate 70 70 Pulse Rate [ 80 From Monitor] Respiratory 19 18 Rate Blood Pressure 142/85 137/79 O2 Sat by Pulse 98 100 Oximetry 05/11/21 05/11/21 05/11/21 10:16 11:00 11:39 Temperature 97.9 F Pulse Rate 64 Pulse Rate [ From Monitor] Respiratory 10 L Rate Blood Pressure 157/73 149/80 O2 Sat by Pulse 99 100 Oximetry 05/11/21 05/11/21 12:00 13:00 Temperature Pulse Rate 74 71 Pulse Rate [ 76 From Monitor] Respiratory 16 15 Rate Blood Pressure 147/83 145/98 O2 Sat by Pulse 100 Oximetry - Labs CBC & Chem 7: 05/10/21 06:33 05/11/21 09:22 Labs: Abnormal lab results 05/10/21 05/10/21 05/10/21 Range/Units 12:54 16:55 18:26 Sodium 130 L 132 L (137-145) mmol/L Chloride (98-107) mmol/L Carbon Dioxide (22-30) mmol/L BUN (9-20) mg/dL Glucose (75-100) mg/dL POC Glucose 215 H (70-105) mg/dL Hemoglobin A1c (4-6) % 05/10/21 05/10/21 05/10/21 Range/Units 18:26 21:40 23:31 Sodium 131 L (137-145) mmol/L Chloride 96.2 L (98-107) mmol/L Carbon Dioxide 19 L (22-30) mmol/L BUN 7 L (9-20) mg/dL Glucose 232 H (75-100) mg/dL POC Glucose 227 H (70-105) mg/dL Hemoglobin A1c 13.0 H (4-6) % 05/11/21 05/11/21 05/11/21 Range/Units 04:20 07:28 09:22 Sodium 134 L 134 L (137-145) mmol/L Chloride 97.9 L 96.2 L (98-107) mmol/L Carbon Dioxide 20 L 21 L (22-30) mmol/L BUN 7 L (9-20) mg/dL Glucose 199 H 257 H (75-100) mg/dL POC Glucose 202 H (70-105) mg/dL Hemoglobin A1c (4-6) % 05/11/21 Range/Units 10:56 Sodium (137-145) mmol/L Chloride (98-107) mmol/L Carbon Dioxide (22-30) mmol/L BUN (9-20) mg/dL Glucose (75-100) mg/dL POC Glucose 213 H (70-105) mg/dL Hemoglobin A1c (4-6) % Medications & Allergies - Medications Allergies/Adverse Reactions: Allergies No Known Allergies Allergy (Verified 05/09/21 01:02) Active Medications: Generic Name Dose Route Start Last Admin Trade Name Freq PRN Reason Stop Dose Admin Acetaminophen 650 mg 05/09/21 03:09 Acetaminophen 325 Mg Tab PO Q4H PRN Pain, Mild (1-3) Aspirin 81 mg 05/10/21 10:00 05/11/21 11:20 Aspirin Ec 81 Mg Tab PO 81 mg QDAY GABRIELE Administration Atorvastatin Calcium 40 mg 05/09/21 22:00 05/10/21 21:29 Atorvastatin 40 Mg Tab PO 40 mg QHS GABRIELE Administration Bisacodyl 10 mg 05/09/21 03:09 Bisacodyl 10 Mg Rect Supp RI QDAY PRN Constipation Dextrose 0 ml 05/09/21 03:33 Dextrose 10% *Hypoglycemia IV DIRECT PRN Hypoglycemia Protocol Docusate Sodium 100 mg 05/10/21 22:00 05/11/21 11:20 Docusate Sodium 100 Mg Cap PO 100 mg BID GABRIELE Administration Heparin Sodium (Porcine) 5,000 unit 05/09/21 06:00 05/11/21 05:29 Heparin 5,000 Unit/1 Ml Vial SUB-Q 5,000 unit Q8HR [facility] Administration Sodium Chloride 500 mls @ 50 mls/hr 05/11/21 12:00 Nacl 3% IV 05/11/21 21:59 DIRECT [facility] Insulin Glargine 10 units 05/11/21 22:00 Insulin Glargine 100 Units/Ml SUB-Q QHS [facility] Insulin Human Lispro 0 unit 05/09/21 07:30 05/11/21 12:00 Insulin Lispro 100 Unit/Ml SUB-Q 4 unit ACHS [facility] Administration Protocol Magnesium Hydroxide 30 ml 05/09/21 03:09 Magnesium Hydroxide (Mom) Oral Liqd Udc PO Q4H PRN Constipation Metoclopramide HCl 10 mg 05/09/21 03:09 Metoclopramide 10 Mg Tab PO Q6H PRN Nausea And Vomiting Ondansetron HCl 4 mg 05/09/21 03:09 Ondansetron 4 Mg/2 Ml Inj IV Q8H PRN Nausea And Vomiting Sodium Chloride 10 ml 05/09/21 03:09 05/10/21 21:31 Sodium Chloride 0.9% 10 Ml Flush Syringe IV 10 ml PRN PRN Administration LINE FLUSH HEART Score - HEART Score Troponin: Troponin T < 0.010 ng/mL (0.00-0.029) 05/09/21 01:28
--- NOTE | 2021-05-11 15:09 | Progress Note ---
Assessment and Plan Assessment and plan: This is a 70-year-old male with HTN, DM mated with acute CVA Neuro: Acute CVA -Neurology and neurosurgery consulted, appreciate recommendations -CT brain on admit unremarkable -CTA brain showed branch MCA occlusion in the posterior sylvian fissure region on the left, focal area of narrowing in the right [employer], focal area of moderate to high-grade narrowing seen in the nondominant left vertebral artery -CTA neck showed narrowing in the left subclavian/axillary artery, no signi ficant narrowing seen in the common or internal carotid arteries, atherosclerotic disease seen in the vertebral arteries with areas of moderate narrowing -05/10 CT head showed interval evolutionary changes in the CT appearance of the prominent left temporal occipital cortical infarct which is not clearly visible by CT is a large area of cortical and subcortical hypoattenuation, mass-effect with evidence of some compression of the left lateral ventricle and interval development of approximately 4 to 5 mm midline shift, no evidence of hemorrhage and prominent chronic diffuse white matter hypoattenuation and evidence of underlying age-related cortical atrophy. -05/11 CT head showed significant edema in the left parietotemporal region and minimal portions of left occipital lobe, involvement of left posterior lateral [place]hal capsular region, edema has mildly progressed from prior with slightly more mass-effect and left to right midline shift (which has increased from 3 to 5 mm at the level of the septum pellucidum) however basal cisterns remain widely patent, mass-effect of the left lateral ventricle, no evidence of hydrocephalus and no definitive signs of hemorrhagic transformation, extensive white matter persists in both cerebral hemispheres. -Lipid profile noted -Aspirin and Lipitor -Hemoglobin A1c 13 -S/p mannitol -Hypertonic saline -Goal sodium > 140, Osmo > 300 -Sodium and serum osmolarity 4 times daily -Neurochecks per protocol -Allow permissive hypertension, BP less than 180/120 for 24 hours and then BP greater than 150/80 achieved with gradual control -ST/PT/OT consult: ST cleared for pured diet with thin liquids, PT recommends home health PT, OT consult pending -[facility] consulted, appreciate recommendations -Neurology spoke to [facility] on 05/10: Will consider transfer if change in mental status or neurological exam, recommended maintaining mannitol, CT brain in a.m., Keppra to 50 mg IV twice daily, neurochecks every 4 hours x24 hours and every shift Cardiac: h/o HTN, HFrEF -Allow permissive hypertension, BP less than 180/120 for 24 hours and then BP greater than 150/80 achieved with gradual control -Blood pressure monitoring per protocol -Echocardiogram shows dilated cardiomyopathy, LVEF 20 to 25%, mild pulmonary hypertension -Restart home cardioprotective medications when obtained Respiratory: NAD -Supplemental oxygen as needed -Pulmonary hygiene -SPO2 monitoring GI: NAD -24 hours -562 mL -PPI -ST cleared for pured diet with thin liquids -BR: Colace : Hyponatremia, metabolic acidosis -Strict intake and output -Avoid nephrotoxic medications -Trend BMP ID: NAD -Monitor WBC and temperature curve Endo: Hyperglycemia, h/o DM -Avoid hypoglycemia -SSI -Accu-Cheks AC at bedtime -Long-acting insulin, titrate as needed -Hemeglobin A1c 13 Heme: NAD -Trend CBC -Transfuse hemoglobin less than 7 -Monitor for signs of bleeding -SCDs to BLE while in bed -Heparin subcu The high probability of a clinically significant, sudden or life threatening deterioration of the [neuro] system(s) required my full and direct attention, intervention and personal management. The aggregate critical care time was [60] minutes. This time is in addition to time spent performing reported procedures but includes the following: [x] Data Review and interpretation [x] Patient assessment and monitoring of vital signs [x] Documentation [x] Medication orders and management Disposition Plan: icu Total Time Spent with Patient (Minutes): 60 History Interval history: This is 70-year-old male with HTN, DM who presented to emergency department on 05/09 with AMS and strokelike symptoms, and per family was noticed to have be walking into the [place] and confused therefore EMS was called. Initial blood pressure on arrival of EMS was 150/100 and glucose was 364 and family stated the symptoms started around dinnertime earlier in the evening. Recommend emergency department included CT head which showed no acute abnormality, CTA head showed branch MCA occlusion, focal area of narrowing in the right [employer], focal area of moderate to high-grade narrowing in the nondominant left vertebral artery and CTA neck showed narrowing of the left subclavian/axillary artery with arthrosclerotic disease seen in the vertebral arteries with areas of moderate narrowing and lab work was significant for hyperglycemia of 451. Patient was evaluated by teleneurologist and was scheduled for MRI brain, carotid Dopplers and echocardiogram, hemoglobin A1c and lipid profile. Patient passed bedside swallow evaluation in the ED and received aspirin. Patient was admitted to the hospital service with consults to neurology for acute CVA. Hospital course to date: 05/09: Patient was transferred to ICU from telemetry due to large CVA lesion and chance of edema cannot be excluded and started on mannitol 40 mg IV now and 25 mg 4 times daily for 3 days with hourly neuro checks and repeat CT head in the a.m. 05/10: Patient has hyponatremia, started on mannitol for 4 days per neurology, CT head pending. 05/11: Neuro status unchanged, repeat CT head obtained which showed slight worsening of shift, neurosurgery was contacted yesterday and plans to transfer patient to tertiary center was unsuccessful. Started on 3% saline with frequent lab checks. Lantus increased. [facility] was contacted last evening by Dr. Sierra. Hospitalist Physical - Constitutional Vitals: Temp Pulse Resp BP Pulse Ox 97.9 F 75 19 145/98 100 05/11/21 11:39 05/11/21 14:00 05/11/21 14:00 05/11/21 14:00 05/11/21 12:00 General appearance: Present: no acute distress, well-nourished HEART Score - HEART Score Troponin: Troponin T < 0.010 ng/mL (0.00-0.029) 05/09/21 01:28 Results - Labs CBC & Chem 7: 05/10/21 06:33 05/11/21 09:22 Labs: Laboratory Last Values WBC 8.3 K/mm3 (4.5-11.0) 05/10/21 06:33 RBC 4.93 M/mm3 (3.65-5.03) 05/10/21 06:33 Hgb 15.5 gm/dl (11.8-15.2) H 05/10/21 06:33 Hct 46.0 % (35.5-45.6) H D 05/10/21 06:33 MCV 93 fl (84-94) 05/10/21 06:33 MCH 32 pg (28-32) 05/10/21 06:33 MCHC 34 % (32-34) 05/10/21 06:33 RDW 13.2 % (13.2-15.2) 05/10/21 06:33 Plt Count 165 K/mm3 (140-440) 05/10/21 06:33 Lymph % (Auto) 21.2 % (13.4-35.0) 05/10/21 06:33 [place] % (Auto) 9.5 % (0.0-7.3) H 05/10/21 06:33 Eos % (Auto) 0.7 % (0.0-4.3) 05/10/21 06:33 Baso % (Auto) 0.4 % (0.0-1.8) 05/10/21 06:33 Lymph # (Auto) 1.8 K/mm3 (1.2-5.4) 05/10/21 06:33 [place] # (Auto) 0.8 K/mm3 (0.0-0.8) 05/10/21 06:33 Eos # (Auto) 0.1 K/mm3 (0.0-0.4) 05/10/21 06:33 Baso # (Auto) 0.0 K/mm3 (0.0-0.1) 05/10/21 06:33 Seg Neutrophils % 68.2 % (40.0-70.0) 05/10/21 06:33 Seg Neutrophils # 5.7 K/mm3 (1.8-7.7) 05/10/21 06:33 PT 14.0 Sec. (12.2-14.9) 05/09/21 01:28 INR 0.97 (0.87-1.13) 05/09/21 01:28 APTT 27.7 Sec. (24.2-36.6) 05/09/21 01:28 Thrombin Time 16.9 Sec. (15.1-19.6) 05/09/21 01:28 VBG pH 7.484 (7.320-7.420) H 05/09/21 01:31 Sodium 134 mmol/L (137-145) L 05/11/21 09:22 Potassium 4.1 mmol/L (3.6-5.0) 05/11/21 09:22 Chloride 96.2 mmol/L (98-107) L 05/11/21 09:22 Carbon Dioxide 21 mmol/L (22-30) L 05/11/21 09:22 Anion Gap 21 mmol/L 05/11/21 09:22 BUN 9 mg/dL (9-20) 05/11/21 09:22 Creatinine 0.9 mg/dL (0.8-1.3) 05/11/21 09:22 Estimated GFR > 60 ml/min 05/11/21 09:22 BUN/Creatinine Ratio 10 % 05/11/21 09:22 Glucose 257 mg/dL (75-100) H 05/11/21 09:22 POC Glucose 213 mg/dL (70-105) H 05/11/21 10:56 Hemoglobin A1c 13.0 % (4-6) H 05/10/21 18:26 Osmolality 306 Mosm/kg 05/11/21 09:22 Calcium 9.3 mg/dL (8.4-10.2) 05/11/21 09:22 Phosphorus 3.00 mg/dL (2.5-4.5) 05/11/21 04:20 Magnesium 1.70 mg/dL (1.7-2.3) 05/11/21 04:20 Total Bilirubin 0.50 mg/dL (0.1-1.2) 05/09/21 01:28 AST 9 units/L (5-40) 05/09/21 01:28 ALT 7 units/L (7-56) 05/09/21 01:28 Alkaline Phosphatase 93 units/L (35-129) 05/09/21 01:28 Total Creatine Kinase 88 units/L (55-170) 05/09/21 01:28 CK-MB (CK-2) 2.0 ng/mL (0.0-4.0) 05/09/21 01:28 CK-MB (CK-2) Rel Index 2.2 (0-4) 05/09/21 01:28 Troponin T < 0.010 ng/mL (0.00-0.029) 05/09/21 01:28 Total Protein 6.4 g/dL (6.3-8.2) 05/09/21 01:28 Albumin 3.9 g/dL (3.9-5) 05/09/21 01:28 Albumin/Globulin Ratio 1.6 % 05/09/21 01:28 Triglycerides 123 mg/dL (2-149) 05/10/21 06:33 Cholesterol 265 mg/dL (50-199) H 05/10/21 06:33 LDL Cholesterol Direct 212 mg/dL (50-130) H 05/10/21 06:33 HDL Cholesterol 35 mg/dL (40-59) L 05/10/21 06:33 Cholesterol/HDL Ratio 7.57 % 05/10/21 06:33 Urine Color Straw (Yellow) 05/09/21 Unknown Urine Turbidity Clear (Clear) 05/09/21 Unknown Urine pH 7.0 (5.0-7.0) 05/09/21 Unknown Ur Specific [place] 1.028 (1.003-1.030) 05/09/21 Unknown Urine Protein 30 mg/dl mg/dL (Negative) 05/09/21 Unknown Urine Glucose (UA) >=500 mg/dL (Negative) 05/09/21 Unknown Urine Ketones Neg mg/dL (Negative) 05/09/21 Unknown Urine Blood Neg (Negative) 05/09/21 Unknown Urine Nitrite Neg (Negative) 05/09/21 Unknown Urine Bilirubin Neg (Negative) 05/09/21 Unknown Urine Urobilinogen < 2.0 mg/dL (<2.0) 05/09/21 Unknown Ur Leukocyte Esterase Neg (Negative) 05/09/21 Unknown Urine WBC (Auto) 1.0 /HPF (0.0-6.0) 05/09/21 Unknown Urine RBC (Auto) 2.0 /HPF (0.0-6.0) 05/09/21 Unknown [place]/IV: Voiding Method Condom Catheter Active Medications - Current Medications Current Medications: Generic Name Dose Route Start Last Admin Trade Name Freq PRN Reason Stop Dose Admin Acetaminophen 650 mg 05/09/21 03:09 Acetaminophen 325 Mg Tab PO Q4H PRN Pain, Mild (1-3) Aspirin 81 mg 05/10/21 10:00 05/11/21 11:20 Aspirin Ec 81 Mg Tab PO 81 mg QDAY GABRIELE Administration Atorvastatin Calcium 40 mg 05/09/21 22:00 05/10/21 21:29 Atorvastatin 40 Mg Tab PO 40 mg QHS GABRIELE Administration Bisacodyl 10 mg 05/09/21 03:09 Bisacodyl 10 Mg Rect Supp ND QDAY PRN Constipation Dextrose 0 ml 05/09/21 03:33 Dextrose 10% *Hypoglycemia IV DIRECT PRN Hypoglycemia Protocol Docusate Sodium 100 mg 05/10/21 22:00 05/11/21 11:20 Docusate Sodium 100 Mg Cap PO 100 mg BID GABRIELE Administration Heparin Sodium (Porcine) 5,000 unit 05/09/21 06:00 05/11/21 05:29 Heparin 5,000 Unit/1 Ml Vial SUB-Q 5,000 unit Q8HR GABRIELE Administration Sodium Chloride 500 mls @ 50 mls/hr 05/11/21 12:00 05/11/21 13:00 Nacl 3% IV 05/11/21 21:59 50 mls/hr DIRECT GABRIELE Administration Insulin Glargine 10 units 05/11/21 22:00 Insulin Glargine 100 Units/Ml SUB-Q QHS GABRIELE Insulin Human Lispro 0 unit 05/09/21 07:30 05/11/21 12:00 Insulin Lispro 100 Unit/Ml SUB-Q 4 unit ACHS GABRIELE Administration Protocol Magnesium Hydroxide 30 ml 05/09/21 03:09 Magnesium Hydroxide (Mom) Oral Liqd Udc PO Q4H PRN Constipation Metoclopramide HCl 10 mg 05/09/21 03:09 Metoclopramide 10 Mg Tab PO Q6H PRN Nausea And Vomiting Ondansetron HCl 4 mg 05/09/21 03:09 Ondansetron 4 Mg/2 Ml Inj IV Q8H PRN Nausea And Vomiting Sodium Chloride 10 ml 05/09/21 03:09 05/10/21 21:31 Sodium Chloride 0.9% 10 Ml Flush Syringe IV 10 ml PRN PRN Administration LINE FLUSH Nutrition/Malnutrition Assess - Dietary Evaluation Nutrition/Malnutrition Findings: Nutrition Notes Start: 05/09/21 13:59 Freq: Status: Active Protocol: Document 05/09/21 13:59 [facility] (Rec: 05/09/21 14:19 HIALL [id number]) Nutrition Notes Need for Assessment generated from: MD Order,Education Initial or Follow up Brief Note Current Diagnosis Diabetes,Hypertension,Stroke Other Pertinent Diagnosis AMS, Expressive aphasia Current Diet Cardiac Labs/Tests BG 451 Height 5 ft 11 in Weight 86.183 kg [place] Body Weight (kg) 78.18 BMI 26.4 Subjective/Other Information RD consulted for diet education. Pt not appropriate for diet education at this time. [employer] SUPERVISOR evaluation ordered. Burn Absent Trauma Absent Minimum of two criteria No Is patient on ventilator? 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
[2021-05-11] MEDS ORDERED: INSULIN GLARGINE 100 UNITS/ML SUB-Q SCH (22:00)
[2021-05-11] MEDS: SODIUM CHLORIDE 3% 500 ML IV SCH (22:21)
[2021-05-11 23:26] LABS: BUN/Creatinine Ratio 11; Blood Urea Nitrogen 10 mg/dL (9-20); Calcium 8.7 mg/dL (8.4-10.2); Hemolysis Index 9
[2021-05-12 05:07] LABS: Hematocrit 41.2 % (35.5-45.6); Hemoglobin 14.2 gm/dl (11.8-15.2); Mean Corpuscular HGB Conc 35 % (32-34); Mean Corpuscular Volume 93 fl (84-94); Platelet Count 146 K/mm3 (140-440); Red Blood Count 4.42 M/mm3 (3.65-5.03); Red Cell Distribution Width 12.8 % (13.2-15.2)
[2021-05-12] MEDS: HEPARIN 5,000 UNIT/1 ML VIAL SUB-Q SCH ×3 (05:43→21:51)
--- NOTE | 2021-05-12 05:55 | Cat Scan Report ---
CT HEAD WITHOUT CONTRAST INDICATION / CLINICAL INFORMATION: reeval of shift. TECHNIQUE: All CT scans at this location are performed using CT dose reduction for ALARA by means of automated exposure control. COMPARISON: CT dated 05/11/2021. FINDINGS: BRAIN PARENCHYMA: Redemonstration of large left MCA distribution infarct. There is unchanged mass eff ect and left right midline shift, measuring 5 mm. No acute intracranial hemorrhage. VENTRICULAR SYSTEM/EXTRA-AXIAL SPACES: Ventricles are unchanged with prominent effacement of the left lateral ventricle. No hydrocephalus. No extra-axial fluid collection. ORBITS: Normal as visualized. SKELETAL SYSTEM/SOFT TISSUES: Normal bones and soft tissues. PARANASAL SINUSES/MASTOID AIR CELLS: No significant abnormality. ADDITIONAL FINDINGS: None. IMPRESSION: Continue temporal evolution of left MCA distribution infarct with stable mass effect and [id number] t midline shift, measuring 5 mm. No acute intracranial hemorrhage or other detrimental interval flores e from prior study. Signer Name: Art Neff MD Signed: 05/12/2021 5:51 AM Workstation Name: [id number]
[2021-05-12] MEDS: INSULIN LISPRO 100 UNIT/ML SUB-Q SCH ×6 (08:30→21:50)
[2021-05-12 10:56] LABS: BUN/Creatinine Ratio 11; Blood Urea Nitrogen 10 mg/dL (9-20); Calcium 8.6 mg/dL (8.4-10.2); Hemolysis Index 4
[2021-05-12] MEDS: ASPIRIN EC 81 MG TAB PO SCH (11:07)
[2021-05-12] MEDS: DOCUSATE SODIUM 100 MG CAP PO SCH ×2 (11:07→21:52)
[2021-05-12] MEDS: SODIUM CHLORIDE 3% 500 ML IV SCH ×2 (11:14→21:49)
--- NOTE | 2021-05-12 11:48 | Progress Note ---
Assessment and Plan 70 y/o male with large stroke 05/12/21: Follow up neurology recs. Continue hypertonic saline as per neurology. 05/11/21: Will ask neurosurgery to see patient as there are no available ICU beds in the city. Will speak with neurology about stopping mannitol and asking if they want hypertonic saline given CT reports from this am. Keppra not started on yesterday, will ask if this is still needed. Suggest continue q4 hour neuro checks and follow neurosurgery and neurology recs for today. Continue ICU monitoring. 1. Mannitol with monitoring 2. Check Na and serum osms frequently 3. Per Neuro only needs q shift neuro checks 4. BP control 5. need to obtain home medication list and restart home meds 6. Guarded prognosis. Subjective Date of service: 05/12/21 Interval history: No acute events. Repeat Head CT this am unchanged but patient more agitated and frustrated. Now with some receptive aphasia as well. Objective - Constitutional Vitals: Vital Signs - 12hr 05/12/21 05/12/21 05/12/21 00:00 01:00 02:00 Temperature 99.4 F Pulse Rate 60 57 L 67 Pulse Rate [ 63 From Monitor] Respiratory 17 16 14 Rate Blood Pressure 125/83 125/83 124/62 O2 Sat by Pulse 99 99 99 Oximetry 05/12/21 05/12/21 05/12/21 03:01 04:00 05:01 Temperature 98.5 F Pulse Rate 61 60 65 Pulse Rate [ 66 From Monitor] Respiratory 18 20 15 Rate Blood Pressure 113/45 139/80 52/32 O2 Sat by Pulse 98 100 99 Oximetry 05/12/21 05/12/21 05/12/21 06:01 07:01 07:14 Temperature 100.3 F H Pulse Rate 63 77 Pulse Rate [ From Monitor] Respiratory 13 15 Rate Blood Pressure 143/86 143/86 O2 Sat by Pulse 95 99 Oximetry 05/12/21 05/12/21 05/12/21 08:00 09:01 10:01 Temperature Pulse Rate 68 72 76 Pulse Rate [ 68 From Monitor] Respiratory 16 24 17 Rate Blood Pressure 135/55 154/75 154/75 O2 Sat by Pulse 100 Oximetry 05/12/21 05/12/21 11:01 11:32 Temperature 97.9 F Pulse Rate 94 H Pulse Rate [ From Monitor] Respiratory 19 Rate Blood Pressure 163/105 O2 Sat by Pulse 93 Oximetry - Labs CBC & Chem 7: 05/13/21 04:22 05/14/21 04:22 Labs: Abnormal lab results 05/11/21 05/11/21 05/11/21 Range/Units 15:51 21:10 22:52 MCHC (32-34) % RDW (13.2-15.2) % Potassium 3.5 L (3.6-5.0) mmol/L Carbon Dioxide 21 L (22-30) mmol/L Glucose 239 H (75-100) mg/dL POC Glucose 172 H 277 H (70-105) mg/dL 05/12/21 05/12/21 05/12/21 Range/Units 04:12 07:40 10:02 MCHC 35 H (32-34) % RDW 12.8 L (13.2-15.2) % Potassium (3.6-5.0) mmol/L Carbon Dioxide 18 L (22-30) mmol/L Glucose 279 H (75-100) mg/dL POC Glucose 228 H (70-105) mg/dL 05/12/21 Range/Units 10:57 MCHC (32-34) % RDW (13.2-15.2) % Potassium (3.6-5.0) mmol/L Carbon Dioxide (22-30) mmol/L Glucose (75-100) mg/dL POC Glucose 214 H (70-105) mg/dL Medications & Allergies - Medications Allergies/Adverse Reactions: Allergies No Known Allergies Allergy (Verified 05/09/21 01:02) Active Medications: Generic Name Dose Route Start Last Admin Trade Name Freq PRN Reason Stop Dose Admin Acetaminophen 650 mg 05/09/21 03:09 Acetaminophen 325 Mg Tab PO Q4H PRN Pain, Mild (1-3) Aspirin 81 mg 05/10/21 10:00 05/12/21 11:07 Aspirin Ec 81 Mg Tab PO 81 mg QDAY GABRIELE Administration Atorvastatin Calcium 40 mg 05/09/21 22:00 05/11/21 21:45 Atorvastatin 40 Mg Tab PO 40 mg QHS GABRIELE Administration Bisacodyl 10 mg 05/09/21 03:09 Bisacodyl 10 Mg Rect Supp NC QDAY PRN Constipation Dextrose 0 ml 05/09/21 03:33 Dextrose 10% *Hypoglycemia IV DIRECT PRN Hypoglycemia Protocol Docusate Sodium 100 mg 05/10/21 22:00 05/12/21 11:07 Docusate Sodium 100 Mg Cap PO Not Given BID [facility] Haloperidol Lactate 5 mg 05/12/21 12:00 05/12/21 11:08 Haloperidol Lactate 5 Mg/1 Ml Inj IV 5 mg Q6HR GABRIELE Administration Heparin Sodium (Porcine) 5,000 unit 05/09/21 06:00 05/12/21 05:43 Heparin 5,000 Unit/1 Ml Vial SUB-Q 5,000 unit Q8HR GABRIELE Administration Sodium Chloride 500 mls @ 50 mls/hr 05/11/21 23:00 05/12/21 11:14 Nacl 3% IV 50 mls/hr DIRECT GABRIELE Administration Insulin Glargine 15 units 05/12/21 22:00 Insulin Glargine 100 Units/Ml SUB-Q QHS [facility] Insulin Human Lispro 0 unit 05/09/21 07:30 05/12/21 08:30 Insulin Lispro 100 Unit/Ml SUB-Q 4 unit ACHS [facility] Administration Protocol Insulin Human Lispro 5 unit 05/12/21 14:00 Insulin Lispro 100 Unit/Ml SUB-Q TID [facility] Magnesium Hydroxide 30 ml 05/09/21 03:09 Magnesium Hydroxide (Mom) Oral Liqd Udc PO Q4H PRN Constipation Metoclopramide HCl 10 mg 05/09/21 03:09 Metoclopramide 10 Mg Tab PO Q6H PRN Nausea And Vomiting Ondansetron HCl 4 mg 05/09/21 03:09 Ondansetron 4 Mg/2 Ml Inj IV Q8H PRN Nausea And Vomiting Sodium Chloride 10 ml 05/09/21 03:09 05/10/21 21:31 Sodium Chloride 0.9% 10 Ml Flush Syringe IV 10 ml PRN PRN Administration LINE FLUSH HEART Score - HEART Score Troponin: Troponin T < 0.010 ng/mL (0.00-0.029) 05/09/21 01:28
[2021-05-12] MEDS ORDERED: HALOPERIDOL LACTATE 5 MG/1 ML INJ IV SCH (12:00)
--- NOTE | 2021-05-12 12:44 | Progress Note ---
Assessment and Plan - Patient Problems 89-year-old -[place] male with known history of hypertension, diabetes mellitus presenting to the emergency room today with altered mental status and strokelike symptoms. Patient's family was said to have noticed him walking into the [facility] and seems to be confused and therefore called EMS. Initial blood pressure upon arrival of EMS was 150/100 and blood glucose was 364. Symptoms were said to have started about dinnertime earlier in the evening. # Acute CVA (cerebrovascular accident) -pt. is with perceptive aphasia and or possible right visual neglect no focal weakness is noted -CT brain is unremarkable -CTA brain showed possibel posterior branch of left MCA occlusion in sylvian fissure region with focal narrowing in right [employer]KER/DESIGNER noted. - Focal area of moderate to high-grade narrowing seen in the nondominant left vertebral artery. CT angiogram of the neck reveals: - Narrowing seen in the left subclavian/axillary artery, as described above. - No significant narrowing seen in the common or internal carotid arteries. - Atherosclerotic disease seen in the vertebral arteries with areas of moderate narrowing seen near their origins. -echo is noted as well as carotid US -LDL #212 and A1C #13 -he is started on ASA and Lipitor -CT brain repeat this AM showed slight improvement with trigiminal plate is noted bilaterally , edema is 5mm shift -and consider neurosurgical openion if change in mental status -NA#138 -ECHO is with EF#20-25 % -- consider cardiology evaluation ? pt. is possibly a candidate for AC # Hyperglycemia -suger control<150 -A1C#13 # Hypertension - allow for permisive HTN<180/120 for 24 hours -then BP<150/80 gradual control #Fluent aphasia -We request speech therapy evaluation and recommendations. # DVT prophylaxis -Patient placed on subcutaneous heparin. # Full code status -Patient is full code. Subjective Date of service: 05/12/21 Interval history: alert disoriented/aphasic , move all limbs repeat CT brain is noted increase swelling and shift 5mm, MRI brain report is noted Change mannitol to NA3% osmolarity today is # 304 Na today #138 LDL#112 echo is with EF#20-30% Objective - Vital Sign Vital Signs - 12hr 05/12/21 05/12/21 05/12/21 01:00 02:00 03:01 Temperature Pulse Rate 57 L 67 61 Pulse Rate [ From Monitor] Respiratory 16 14 18 Rate Blood Pressure 125/83 124/62 113/45 O2 Sat by Pulse 99 99 98 Oximetry 05/12/21 05/12/21 05/12/21 04:00 05:01 06:01 Temperature 98.5 F Pulse Rate 60 65 63 Pulse Rate [ 66 From Monitor] Respiratory 20 15 13 Rate Blood Pressure 139/80 52/32 143/86 O2 Sat by Pulse 100 99 95 Oximetry 05/12/21 05/12/21 05/12/21 07:01 07:14 08:00 Temperature 100.3 F H Pulse Rate 77 68 Pulse Rate [ 68 From Monitor] Respiratory 15 16 Rate Blood Pressure 143/86 135/55 O2 Sat by Pulse 99 100 Oximetry 05/12/21 05/12/21 05/12/21 09:01 10:01 11:01 Temperature Pulse Rate 72 76 94 H Pulse Rate [ From Monitor] Respiratory 24 17 19 Rate Blood Pressure 154/75 154/75 163/105 O2 Sat by Pulse 93 Oximetry 05/12/21 11:32 Temperature 97.9 F Pulse Rate Pulse Rate [ From Monitor] Respiratory Rate Blood Pressure O2 Sat by Pulse Oximetry - General Apperance Constitutional: comfortable - EENT EENT: PERRL, mucous membranes moist - Respiratory Respiratory: lungs clear, rhonchi - Cardiovascular Cardiovascular: regular rate, normal S1, normal S2 Extremities: no peripheral edema bilat, no clubbing, cyanosis - Gastrointestinal Gastrointestinal: normoactive bowel sounds - Integumentary Integumentary: normal - Neurologic Cranial nerve examination: PERRL, EOMI Speech examination: other (aphasia mostly perceptive , and slight perceptive mnoted today - global ) Detailed motor examination: grossly full strength in - Laboratory Findings CBC and BMP: 05/12/21 04:12 05/12/21 10:02 Abnormal Lab Findings: Abnormal Labs 05/09/21 05/09/21 05/09/21 01:28 01:28 01:31 Hgb Hct MCH 34 H MCHC 37 H RDW [place] % (Auto) 7.5 H VBG pH 7.484 H Sodium 133 L Potassium Chloride 96.8 L Carbon Dioxide BUN Glucose 451 H POC Glucose Hemoglobin A1c Cholesterol LDL Cholesterol Direct HDL Cholesterol 05/09/21 05/09/21 05/09/21 03:08 15:50 20:49 Hgb Hct MCH MCHC RDW [place] % (Auto) VBG pH Sodium Potassium Chloride Carbon Dioxide BUN Glucose POC Glucose 376 H 387 H 230 H Hemoglobin A1c Cholesterol LDL Cholesterol Direct HDL Cholesterol 05/10/21 05/10/21 05/10/21 06:33 06:33 06:33 Hgb 15.5 H Hct 46.0 H D MCH MCHC RDW [place] % (Auto) 9.5 H VBG pH Sodium 136 L Potassium Chloride Carbon Dioxide 19 L BUN 7 L Glucose 235 H POC Glucose Hemoglobin A1c Cholesterol 265 H LDL Cholesterol Direct 212 H HDL Cholesterol 35 L 05/10/21 05/10/21 05/10/21 08:11 11:40 12:54 Hgb Hct MCH MCHC RDW [place] % (Auto) VBG pH Sodium 130 L Potassium Chloride Carbon Dioxide BUN Glucose POC Glucose 267 H 275 H Hemoglobin A1c Cholesterol LDL Cholesterol Direct HDL Cholesterol 05/10/21 05/10/21 05/10/21 16:55 18:26 18:26 Hgb Hct MCH MCHC RDW [place] % (Auto) VBG pH Sodium 132 L Potassium Chloride Carbon Dioxide BUN Glucose POC Glucose 215 H Hemoglobin A1c 13.0 H Cholesterol LDL Cholesterol Direct HDL Cholesterol 05/10/21 05/10/21 05/11/21 21:40 23:31 04:20 Hgb Hct MCH MCHC RDW [place] % (Auto) VBG pH Sodium 131 L 134 L Potassium Chloride 96.2 L 97.9 L Carbon Dioxide 19 L 20 L BUN 7 L 7 L Glucose 232 H 199 H POC Glucose 227 H Hemoglobin A1c Cholesterol LDL Cholesterol Direct HDL Cholesterol 05/11/21 05/11/21 05/11/21 07:28 09:22 10:56 Hgb Hct MCH MCHC RDW [place] % (Auto) VBG pH Sodium 134 L Potassium Chloride 96.2 L Carbon Dioxide 21 L BUN Glucose 257 H POC Glucose 202 H 213 H Hemoglobin A1c Cholesterol LDL Cholesterol Direct HDL Cholesterol 05/11/21 05/11/21 05/11/21 15:51 21:10 22:52 Hgb Hct MCH MCHC RDW [place] % (Auto) VBG pH Sodium Potassium 3.5 L Chloride Carbon Dioxide 21 L BUN Glucose 239 H POC Glucose 172 H 277 H Hemoglobin A1c Cholesterol LDL Cholesterol Direct HDL Cholesterol 05/12/21 05/12/21 05/12/21 04:12 07:40 10:02 Hgb Hct MCH MCHC 35 H RDW 12.8 L [place] % (Auto) VBG pH Sodium Potassium Chloride Carbon Dioxide 18 L BUN Glucose 279 H POC Glucose 228 H Hemoglobin A1c Cholesterol LDL Cholesterol Direct HDL Cholesterol 05/12/21 10:57 Hgb Hct MCH MCHC RDW [place] % (Auto) VBG pH Sodium Potassium Chloride Carbon Dioxide BUN Glucose POC Glucose 214 H Hemoglobin A1c Cholesterol LDL Cholesterol Direct HDL Cholesterol
--- NOTE | 2021-05-12 13:11 | Progress Note ---
Assessment and Plan Assessment and plan: This is a 70-year-old male with HTN, DM mated with acute CVA Neuro: Acute CVA -Neurology and neurosurgery consulted, appreciate recommendations -CT brain on admit unremarkable -CTA brain showed branch MCA occlusion in the posterior sylvian fissure region on the left, focal area of narrowing in the right VICE PRESIDENT, focal area of moderate to high-grade narrowing seen in the nondominant left vertebral artery -CTA neck showed narrowing in the left subclavian/axillary artery, no signi ficant narrowing seen in the common or internal carotid arteries, atherosclerotic disease seen in the vertebral arteries with areas of moderate narrowing -05/10 CT head showed interval evolutionary changes in the CT appearance of the prominent left temporal occipital cortical infarct which is not clearly visible by CT is a large area of cortical and subcortical hypoattenuation, mass-effect with evidence of some compression of the left lateral ventricle and interval development of approximately 4 to 5 mm midline shift, no evidence of hemorrhage and prominent chronic diffuse white matter hypoattenuation and evidence of underlying age-related cortical atrophy. -05/11 CT head showed significant edema in the left parietotemporal region and minimal portions of left occipital lobe, involvement of left posterior lateral canthal capsular region, edema has mildly progressed from prior with slightly more mass-effect and left to right midline shift (which has increased from 3 to 5 mm at the level of the septum pellucidum) however basal cisterns remain widely patent, mass-effect of the left lateral ventricle, no evidence of hydrocephalus and no definitive signs of hemorrhagic transformation, extensive white matter persists in both cerebral hemispheres. -05/12 CT head shows continued on current evaluation of left MCA distribution infarct with stable mass-effect and left to right midline shift measuring 5 mm with no acute intracranial hemorrhage or other gastroenterological change from prior study -Lipid profile noted -Aspirin and Lipitor -Hemoglobin A1c 13 -S/p mannitol -Hypertonic saline -Goal sodium > 140, Osmo > 300 -serial sodium and serum osmolarity -Neurochecks per protocol -Allow permissive hypertension, BP less than 180/120 for 24 hours and then BP greater than 150/80 achieved with gradual control -ST/PT/OT consult: ST cleared for pured diet with thin liquids, PT recommends home health PT, OT consult pending -CCM consulted, appreciate recommendations -Neurology spoke to [facility] on 05/10: Will consider transfer if change in mental status or neurological exam, recommended maintaining mannitol, CT brain in a.m., Keppra to 50 mg IV twice daily, neurochecks every 4 hours x24 hours and every shift Cardiac: h/o HTN, HFrEF -Allow permissive hypertension, BP less than 180/120 for 24 hours and then BP greater than 150/80 achieved with gradual control -Blood pressure monitoring per protocol -Echocardiogram shows dilated cardiomyopathy, LVEF 20 to 25%, mild pulmonary hypertension -Restart home cardioprotective medications when obtained if appropriate Respiratory: NAD -Supplemental oxygen as needed -Pulmonary hygiene -SPO2 monitoring GI: NAD -24 hours -1125 mL -PPI -ST cleared for pured diet with thin liquids -BR: Colace : Hyponatremia, metabolic acidosis, hypokalemia -Strict intake and output -Avoid nephrotoxic medications -Replete potassium -Trend BMP ID: NAD -Monitor WBC and temperature curve Endo: Hyperglycemia, h/o DM -Avoid hypoglycemia -SSI -Accu-Cheks AC at bedtime -Long-acting insulin, titrate as needed -Added lispro 5 units TID -Hemoglobin A1c 13 Heme: NAD -Trend CBC -Transfuse hemoglobin less than 7 -Monitor for signs of bleeding -SCDs to BLE while in bed -Heparin subcu The high probability of a clinically significant, sudden or life threatening deterioration of the [neuro] system(s) required my full and direct attention, intervention and personal management. The aggregate critical care time was [60] minutes. This time is in addition to time spent performing reported procedures but includes the following: [x] Data Review and interpretation [x] Patient assessment and monitoring of vital signs [x] Documentation [x] Medication orders and management Disposition Plan: icu Total Time Spent with Patient (Minutes): 60 History Interval history: This is 70-year-old male with HTN, DM who presented to emergency department on 05/09 with AMS and strokelike symptoms, and per family was noticed to have be walking into the [place] and confused therefore EMS was called. Initial blood pressure on arrival of EMS was 150/100 and glucose was 364 and family stated the symptoms started around dinnertime earlier in the evening. Recommend emergency department included CT head which showed no acute abnormality, CTA head showed branch MCA occlusion, focal area of narrowing in the right VICE PRESIDENT, focal area of moderate to high-grade narrowing in the nondominant left vertebral artery and CTA neck showed narrowing of the left subclavian/axillary artery with arthroscle rotic disease seen in the vertebral arteries with areas of moderate narrowing and lab work was significant for hyperglycemia of 451. Patient was evaluated by teleneurologist and was scheduled for MRI brain, carotid Dopplers and echocardiogram, hemoglobin A1c and lipid profile. Patient passed bedside swallow evaluation in the ED and received aspirin. Patient was admitted to the hospital service with consults to neurology for acute CVA. Hospital course to date: 05/09: Patient was transferred to ICU from telemetry due to large CVA lesion and chance of edema cannot be excluded and started on mannitol 40 mg IV now and 25 mg 4 times daily for 3 days with hourly neuro checks and repeat CT head in the a.m. 05/10: Patient has hyponatremia, started on mannitol for 4 days per neurology, CT head pending. 05/11: Neuro status unchanged, repeat CT head obtained which showed slight worsening of shift, neurosurgery was contacted yesterday and plans to transfer patient to tertiary center was unsuccessful. Started on 3% saline with frequent lab checks. Lantus increased. [facility] was contacted last evening by Dr. Sierra. 05/12: Lantus adjusted, CT head without significant changes. Will obtain CT head in the a.m. This afternoon patient was hypokalemic and potassium was repleted. Given Haldol for agitation. Hospitalist Physical - Constitutional Vitals: Temp Pulse Resp BP Pulse Ox 97.9 F 64 12 155/101 98 05/12/21 11:32 05/12/21 12:01 05/12/21 12:01 05/12/21 12:01 05/12/21 12:01 General appearance: Present: no acute distress, well-nourished - EENT Eyes: Present: PERRL, EOM intact ENT: dentition normal - Neck Neck: Present: normal ROM - Respiratory Respiratory effort: normal Respiratory: bilateral: CTA - Cardiovascular Rhythm: regular Heart Sounds: Present: S1 & S2. Absent: systolic murmur, diastolic murmur - Extremities Extremities: no ischemia, pulses intact, pulses symmetrical, No edema, normal temperature, normal color Peripheral Pulses: within normal limits - Abdominal General gastrointestinal: soft, non-tender, non-distended, normal bowel sounds - Integumentary Integumentary: Present: warm, dry - Psychiatric Psychiatric: cooperative, agitated - Neurologic Neurologic: focal deficits, other (expressive and receptive aphasia, garbel speech, right sided neglect) HEART Score - HEART Score Troponin: Troponin T < 0.010 ng/mL (0.00-0.029) 05/09/21 01:28 Results - Labs CBC & Chem 7: 05/12/21 04:12 05/12/21 14:39 Labs: Laboratory Last Values WBC 10.5 K/mm3 (4.5-11.0) 05/12/21 04:12 RBC 4.42 M/mm3 (3.65-5.03) 05/12/21 04:12 Hgb 14.2 gm/dl (11.8-15.2) 05/12/21 04:12 Hct 41.2 % (35.5-45.6) 05/12/21 04:12 MCV 93 fl (84-94) 05/12/21 04:12 MCH 32 pg (28-32) 05/12/21 04:12 MCHC 35 % (32-34) H 05/12/21 04:12 RDW 12.8 % (13.2-15.2) L 05/12/21 04:12 Plt Count 146 K/mm3 (140-440) 05/12/21 04:12 Lymph % (Auto) 21.2 % (13.4-35.0) 05/10/21 06:33 [place] % (Auto) 9.5 % (0.0-7.3) H 05/10/21 06:33 Eos % (Auto) 0.7 % (0.0-4.3) 05/10/21 06:33 Baso % (Auto) 0.4 % (0.0-1.8) 05/10/21 06:33 Lymph # (Auto) 1.8 K/mm3 (1.2-5.4) 05/10/21 06:33 Talbot # (Auto) 0.8 K/mm3 (0.0-0.8) 05/10/21 06:33 Eos # (Auto) 0.1 K/mm3 (0.0-0.4) 05/10/21 06:33 Baso # (Auto) 0.0 K/mm3 (0.0-0.1) 05/10/21 06:33 Seg Neutrophils % 68.2 % (40.0-70.0) 05/10/21 06:33 Seg Neutrophils # 5.7 K/mm3 (1.8-7.7) 05/10/21 06:33 PT 14.0 Sec. (12.2-14.9) 05/09/21 01:28 INR 0.97 (0.87-1.13) 05/09/21 01:28 APTT 27.7 Sec. (24.2-36.6) 05/09/21 01:28 Thrombin Time 16.9 Sec. (15.1-19.6) 05/09/21 01:28 VBG pH 7.484 (7.320-7.420) H 05/09/21 01:31 Sodium 137 mmol/L (137-145) 05/12/21 10:02 Potassium 3.6 mmol/L (3.6-5.0) 05/12/21 10:02 Chloride 103.2 mmol/L (98-107) 05/12/21 10:02 Carbon Dioxide 18 mmol/L (22-30) L 05/12/21 10:02 Anion Gap 19 mmol/L 05/12/21 10:02 BUN 10 mg/dL (9-20) 05/12/21 10:02 Creatinine 0.9 mg/dL (0.8-1.3) 05/12/21 10:02 Estimated GFR > 60 ml/min 05/12/21 10:02 BUN/Creatinine Ratio 11 % 05/12/21 10:02 Glucose 279 mg/dL (75-100) H 05/12/21 10:02 POC Glucose 214 mg/dL (70-105) H 05/12/21 10:57 Hemoglobin A1c 13.0 % (4-6) H 05/10/21 18:26 Osmolality 307 Mosm/kg 05/12/21 10:02 Calcium 8.6 mg/dL (8.4-10.2) 05/12/21 10:02 Phosphorus 3.00 mg/dL (2.5-4.5) 05/11/21 04:20 Magnesium 1.70 mg/dL (1.7-2.3) 05/11/21 04:20 Total Bilirubin 0.50 mg/dL (0.1-1.2) 05/09/21 01:28 AST 9 units/L (5-40) 05/09/21 01:28 ALT 7 units/L (7-56) 05/09/21 01:28 Alkaline Phosphatase 93 units/L (35-129) 05/09/21 01:28 Total Creatine Kinase 88 units/L (55-170) 05/09/21 01:28 CK-MB (CK-2) 2.0 ng/mL (0.0-4.0) 05/09/21 01:28 CK-MB (CK-2) Rel Index 2.2 (0-4) 05/09/21 01:28 Troponin T < 0.010 ng/mL (0.00-0.029) 05/09/21 01:28 Total Protein 6.4 g/dL (6.3-8.2) 05/09/21 01:28 Albumin 3.9 g/dL (3.9-5) 05/09/21 01:28 Albumin/Globulin Ratio 1.6 % 05/09/21 01:28 Triglycerides 123 mg/dL (2-149) 05/10/21 06:33 Cholesterol 265 mg/dL (50-199) H 05/10/21 06:33 LDL Cholesterol Direct 212 mg/dL (50-130) H 05/10/21 06:33 HDL Cholesterol 35 mg/dL (40-59) L 05/10/21 06:33 Cholesterol/HDL Ratio 7.57 % 05/10/21 06:33 Urine Color Straw (Yellow) 05/09/21 Unknown Urine Turbidity Clear (Clear) 05/09/21 Unknown Urine pH 7.0 (5.0-7.0) 05/09/21 Unknown Ur Specific [place] 1.028 (1.003-1.030) 05/09/21 Unknown Urine Protein 30 mg/dl mg/dL (Negative) 05/09/21 Unknown Urine Glucose (UA) >=500 mg/dL (Negative) 05/09/21 Unknown Urine Ketones Neg mg/dL (Negative) 05/09/21 Unknown Urine Blood Neg (Negative) 05/09/21 Unknown Urine Nitrite Neg (Negative) 05/09/21 Unknown Urine Bilirubin Neg (Negative) 05/09/21 Unknown Urine Urobilinogen < 2.0 mg/dL (<2.0) 05/09/21 Unknown Ur Leukocyte Esterase Neg (Negative) 05/09/21 Unknown Urine WBC (Auto) 1.0 /HPF (0.0-6.0) 05/09/21 Unknown Urine RBC (Auto) 2.0 /HPF (0.0-6.0) 05/09/21 Unknown Castro/IV: Voiding Method Condom Catheter Active Medications - Current Medications Current Medications: Generic Name Dose Route Start Last Admin Trade Name Freq PRN Reason Stop Dose Admin Acetaminophen 650 mg 05/09/21 03:09 Acetaminophen 325 Mg Tab PO Q4H PRN Pain, Mild (1-3) Aspirin 81 mg 05/10/21 10:00 05/12/21 11:07 Aspirin Ec 81 Mg Tab PO 81 mg QDAY GABRIELE Administration Atorvastatin Calcium 40 mg 05/09/21 22:00 05/11/21 21:45 Atorvastatin 40 Mg Tab PO 40 mg QHS GABRIELE Administration Bisacodyl 10 mg 05/09/21 03:09 Bisacodyl 10 Mg Rect Supp UT QDAY PRN Constipation Dextrose 0 ml 05/09/21 03:33 Dextrose 10% *Hypoglycemia IV DIRECT PRN Hypoglycemia Protocol Docusate Sodium 100 mg 05/10/21 22:00 05/12/21 11:07 Docusate Sodium 100 Mg Cap PO Not Given BID GABRIELE Haloperidol Lactate 5 mg 05/12/21 12:00 05/12/21 11:08 Haloperidol Lactate 5 Mg/1 Ml Inj IV 5 mg Q6HR GABRIELE Administration Heparin Sodium (Porcine) 5,000 unit 05/09/21 06:00 05/12/21 05:43 Heparin 5,000 Unit/1 Ml Vial SUB-Q 5,000 unit Q8HR GABRIELE Administration Sodium Chloride 500 mls @ 50 mls/hr 05/11/21 23:00 05/12/21 11:14 Nacl 3% IV 50 mls/hr DIRECT GABRIELE Administration Insulin Glargine 15 units 05/12/21 22:00 Insulin Glargine 100 Units/Ml SUB-Q QHS GABRIELE Insulin Human Lispro 0 unit 05/09/21 07:30 05/12/21 12:00 Insulin Lispro 100 Unit/Ml SUB-Q 4 unit ACHS GABRIELE Administration Protocol Insulin Human Lispro 5 unit 05/12/21 14:00 Insulin Lispro 100 Unit/Ml SUB-Q TID GABRIELE Magnesium Hydroxide 30 ml 05/09/21 03:09 Magnesium Hydroxide (Mom) Oral Liqd Udc PO Q4H PRN Constipation Metoclopramide HCl 10 mg 05/09/21 03:09 Metoclopramide 10 Mg Tab PO Q6H PRN Nausea And Vomiting Ondansetron HCl 4 mg 05/09/21 03:09 Ondansetron 4 Mg/2 Ml Inj IV Q8H PRN Nausea And Vomiting Sodium Chloride 10 ml 05/09/21 03:09 05/10/21 21:31 Sodium Chloride 0.9% 10 Ml Flush Syringe IV 10 ml PRN PRN Administration LINE FLUSH Nutrition/Malnutrition Assess - Dietary Evaluation Nutrition/Malnutrition Findings: Nutrition Notes Start: 05/09/21 13:59 Freq: Status: Active Protocol: Document 05/09/21 13:59 NHALL (Rec: 05/09/21 14:19 NHALL [id number]) Nutrition Notes Need for Assessment generated from: MD Order,Education Initial or Follow up Brief Note Current Diagnosis Diabetes,Hypertension,Stroke Other Pertinent Diagnosis AMS, Expressive aphasia Current Diet Cardiac Labs/Tests BG 451 Height 5 ft 11 in Weight 86.183 kg [place] Body Weight (kg) 78.18 BMI 26.4 Subjective/Other Information RD consulted for diet education. Pt not appropriate for diet education at this time. [employer] evaluation ordered. Burn Absent Trauma Absent Minimum of two criteria No Is patient on ventilator? No Is Patient Ambulatory and/or Out of Bed No REE-([facility]-confined to bed) [phone] Calculation Used for Recommendations [facility] Additional Notes Pro needs 1-1.2g/k-103g/ day Fluid needs 1ml/kcal Nutrition Intervention Follow-Up By: 05/12/21 Additional Comments F/U: intakes, [employer] evaluation
[2021-05-12 15:22] LABS: BUN/Creatinine Ratio 10; Blood Urea Nitrogen 8 mg/dL (9-20); Calcium 8.1 mg/dL (8.4-10.2); Hemolysis Index 9
[2021-05-12] MEDS: POTASSIUM CHLORIDE ER 20 MEQ TAB PO SCH ×2 (17:15→21:51)
[2021-05-12 18:51] LABS: BUN/Creatinine Ratio 9; Blood Urea Nitrogen 7 mg/dL (9-20); Calcium 8.5 mg/dL (8.4-10.2); Hemolysis Index 3
[2021-05-12] MEDS: INSULIN GLARGINE 100 UNITS/ML SUB-Q SCH (21:50)
[2021-05-12] MEDS: HALOPERIDOL LACTATE 5 MG/1 ML INJ IV PRN (22:28)
[2021-05-12 23:27] LABS: BUN/Creatinine Ratio 8; Blood Urea Nitrogen 6 mg/dL (9-20); Hemolysis Index 27
[2021-05-13 02:22] LABS: BUN/Creatinine Ratio 8; Blood Urea Nitrogen 6 mg/dL (9-20); Calcium 8.2 mg/dL (8.4-10.2); Hemolysis Index 6
[2021-05-13 05:16] LABS: Basophils # (Auto) 0.1 K/mm3 (0.0-0.1); Basophils % (Auto) 0.9 % (0.0-1.8); Eosinophils % (Auto) 0.4 % (0.0-4.3); Hematocrit 41.1 % (35.5-45.6); Hemoglobin 13.7 gm/dl (11.8-15.2); Lymphocytes # (Auto) 1.7 K/mm3 (1.2-5.4); Lymphocytes % (Auto) 17.4 % (13.4-35.0); Mean Corpuscular HGB Conc 33 % (32-34); Mean Corpuscular Volume 93 fl (84-94); Monocytes # (Auto) 1.3 K/mm3 (0.0-0.8); Monocytes % (Auto) 13.5 % (0.0-7.3); Platelet Count 133 K/mm3 (140-440); Red Cell Distribution Width 12.9 % (13.2-15.2)
[2021-05-13] MEDS: HEPARIN 5,000 UNIT/1 ML VIAL SUB-Q SCH ×3 (05:22→21:56)
[2021-05-13] MEDS: INSULIN LISPRO 100 UNIT/ML SUB-Q SCH ×7 (08:30→21:55)
--- NOTE | 2021-05-13 09:27 | Cat Scan Report ---
CT head/brain wo con INDICATION / CLINICAL INFORMATION: 70 years Male; f/u midline shift. TECHNIQUE: Routine CT head without contrast. All CT scans at this location are performed using CT dos e reduction for ALARA by means of automated exposure control. COMPARISON: The study is compared to previous CT of 05/12/2021. FINDINGS: BRAIN / INTRACRANIAL CONTENTS: There have been continued interval evolutionary changes of the large i nfarct anomaly involving the posterior left MCA distribution and gangliocapsular region from 2. There appears be slight interval increase in the degree of mass effect upon the left lateral ventr icle and midline shift currently measuring 6 mm. There is continued sulcal effacement. There is no cl ear CT evidence of hemorrhagic transformation. There is otherwise extensive cerebral white matter disease most consistent with microvascular angiopa thy. ORBITS: No significant abnormality of visualized orbits. SINUSES / MASTOIDS: There is mild opacification along the inferior right maxillary sinus. CRANIOCERVICAL JUNCTION: No significant abnormality. ADDITIONAL FINDINGS: None. IMPRESSION: 1. There have been continued interval evolutionary changes of the large left MCA infarct from 05/12/19 22 with slight interval increase in the degree of mass effect as detailed above. Signer Name: Joe Glaser MD Signed: 05/13/2021 9:22 AM Workstation Name: [id number]
[2021-05-13] MEDS: DOCUSATE SODIUM 100 MG CAP PO SCH (10:52)
[2021-05-13] MEDS: SODIUM CHLORIDE 3% 500 ML IV SCH (10:52)
[2021-05-13] MEDS: ASPIRIN EC 81 MG TAB PO SCH (10:57)
--- NOTE | 2021-05-13 11:55 | Progress Note ---
Assessment and Plan - Patient Problems 89-year-old -[place] male with known history of hypertension, diabetes mellitus presenting to the emergency room today with altered mental status and strokelike symptoms. Patient's family was said to have noticed him walking into the [place] and seems to be confused and therefore called EMS. Initial blood pressure upon arrival of EMS was 150/100 and blood glucose was 364. Symptoms were said to have started about dinnertime earlier in the evening. # Acute CVA (cerebrovascular accident) -pt. is with perceptive aphasia and or possible right visual neglect no focal weakness is noted -CT brain is unremarkable -CTA brain showed possibel posterior branch of left MCA occlusion in sylvian fissure region with focal narrowing in right [employer] noted. - Focal area of moderate to high-grade narrowing seen in the nondominant left vertebral artery. CT angiogram of the neck reveals: - Narrowing seen in the left subclavian/axillary artery, as described above. - No significant narrowing seen in the common or internal carotid arteries. - Atherosclerotic disease seen in the vertebral arteries with areas of moderate narrowing seen near their origins. -echo is noted as well as carotid US -LDL #212 and A1C #13 -he is started on ASA and Lipitor -CT brain repeat this AM showed slight improvement with trigiminal plate is noted bilaterally , edema is 6mm shift -and consider neurosurgical openion if change in mental status -NA#143 -ECHO is with EF#20-25 % - -[place] on na3 % over the weekend # Hyperglycemia -suger control<150 -A1C#13 # Hypertension - allow for permisive HTN<180/120 for 24 hours -then BP<150/80 gradual control #Fluent aphasia -We request speech therapy evaluation and recommendations. # DVT prophylaxis -Patient placed on subcutaneous heparin. # Full code status -Patient is full code. Subjective Date of service: 05/13/21 Principal diagnosis: stable clinicaly Interval history: alert disoriented/aphasic , move all limbs repeat CT brain is noted increase swelling and shift 6mm, MRI brain report is noted Change mannitol to NA3% osmolarity today is # 296 Na today #138 LDL#112 echo is with EF#20-30% Objective - Vital Sign Vital Signs - 12hr 05/13/21 05/13/21 05/13/21 00:00 01:00 02:01 Temperature 99.5 F Pulse Rate 75 63 61 Pulse Rate [ 61 From Monitor] Respiratory 15 11 L 10 L Rate Blood Pressure 126/73 112/74 112/74 O2 Sat by Pulse 100 100 Oximetry 05/13/21 05/13/21 05/13/21 03:01 03:16 03:18 Temperature 98.9 F Pulse Rate 62 59 L Pulse Rate [ From Monitor] Respiratory 15 Rate Blood Pressure 135/80 O2 Sat by Pulse 97 Oximetry 05/13/21 05/13/21 05/13/21 03:19 04:01 05:01 Temperature Pulse Rate 62 67 Pulse Rate [ 59 L From Monitor] Respiratory 15 17 20 Rate Blood Pressure 126/87 138/88 O2 Sat by Pulse 100 98 100 Oximetry 05/13/21 05/13/21 05/13/21 06:00 07:01 08:00 Temperature Pulse Rate 66 57 L 62 Pulse Rate [ 61 From Monitor] Respiratory 22 13 14 Rate Blood Pressure 138/79 145/83 O2 Sat by Pulse 99 100 100 Oximetry 05/13/21 05/13/21 05/13/21 08:01 09:05 10:00 Temperature Pulse Rate 60 64 63 Pulse Rate [ From Monitor] Respiratory 14 17 23 Rate Blood Pressure 139/88 150/86 151/79 O2 Sat by Pulse 100 100 100 Oximetry 05/13/21 05/13/21 11:00 11:43 Temperature Pulse Rate 65 60 Pulse Rate [ From Monitor] Respiratory 21 Rate Blood Pressure 151/79 O2 Sat by Pulse 100 Oximetry - General Apperance Constitutional: comfortable - EENT EENT: PERRL, mucous membranes moist - Respiratory Respiratory: chest non-tender, lungs clear, rhonchi - Cardiovascular Cardiovascular: regular rate, normal S1, normal S2 Extremities: no peripheral edema bilat, no clubbing, cyanosis - Gastrointestinal Gastrointestinal: normoactive bowel sounds - Integumentary Integumentary: normal - Neurologic Cranial nerve examination: PERRL, EOMI, other (right visual neglect) Speech examination: other (perceptive aphasia) Detailed motor examination: grossly full strength in - Laboratory Findings CBC and BMP: 05/13/21 04:22 05/13/21 01:51 Abnormal Lab Findings: Abnormal Labs 05/09/21 05/09/21 05/09/21 01:28 01:28 01:31 Hgb Hct MCH 34 H MCHC 37 H RDW Plt Count Titus % (Auto) 7.5 H Titus # (Auto) VBG pH 7.484 H Sodium 133 L Potassium Chloride 96.8 L Carbon Dioxide BUN Glucose 451 H POC Glucose Hemoglobin A1c Calcium Phosphorus Cholesterol LDL Cholesterol Direct HDL Cholesterol 05/09/21 05/09/21 05/09/21 03:08 15:50 20:49 Hgb Hct MCH MCHC RDW Plt Count Titus % (Auto) Titus # (Auto) VBG pH Sodium Potassium Chloride Carbon Dioxide BUN Glucose POC Glucose 376 H 387 H 230 H Hemoglobin A1c Calcium Phosphorus Cholesterol LDL Cholesterol Direct HDL Cholesterol 05/10/21 05/10/21 05/10/21 06:33 06:33 06:33 Hgb 15.5 H Hct 46.0 H D MCH MCHC RDW Plt Count Titus % (Auto) 9.5 H Titus # (Auto) VBG pH Sodium 136 L Potassium Chloride Carbon Dioxide 19 L BUN 7 L Glucose 235 H POC Glucose Hemoglobin A1c Calcium Phosphorus Cholesterol 265 H LDL Cholesterol Direct 212 H HDL Cholesterol 35 L 05/10/21 05/10/21 05/10/21 08:11 11:40 12:54 Hgb Hct MCH MCHC RDW Plt Count Titus % (Auto) Titus # (Auto) VBG pH Sodium 130 L Potassium Chloride Carbon Dioxide BUN Glucose POC Glucose 267 H 275 H Hemoglobin A1c Calcium Phosphorus Cholesterol LDL Cholesterol Direct HDL Cholesterol 05/10/21 05/10/21 05/10/21 16:55 18:26 18:26 Hgb Hct MCH MCHC RDW Plt Count Titus % (Auto) Titus # (Auto) VBG pH Sodium 132 L Potassium Chloride Carbon Dioxide BUN Glucose POC Glucose 215 H Hemoglobin A1c 13.0 H Calcium Phosphorus Cholesterol LDL Cholesterol Direct HDL Cholesterol 05/10/21 05/10/21 05/11/21 21:40 23:31 04:20 Hgb Hct MCH MCHC RDW Plt Count Titus % (Auto) Titus # (Auto) VBG pH Sodium 131 L 134 L Potassium Chloride 96.2 L 97.9 L Carbon Dioxide 19 L 20 L BUN 7 L 7 L Glucose 232 H 199 H POC Glucose 227 H Hemoglobin A1c Calcium Phosphorus Cholesterol LDL Cholesterol Direct HDL Cholesterol 05/11/21 05/11/21 05/11/21 07:28 09:22 10:56 Hgb Hct MCH MCHC RDW Plt Count Titus % (Auto) Titus # (Auto) VBG pH Sodium 134 L Potassium Chloride 96.2 L Carbon Dioxide 21 L BUN Glucose 257 H POC Glucose 202 H 213 H Hemoglobin A1c Calcium Phosphorus Cholesterol LDL Cholesterol Direct HDL Cholesterol 05/11/21 05/11/21 05/11/21 15:51 21:10 22:52 Hgb Hct MCH MCHC RDW Plt Count Titus % (Auto) Titus # (Auto) VBG pH Sodium Potassium 3.5 L Chloride Carbon Dioxide 21 L BUN Glucose 239 H POC Glucose 172 H 277 H Hemoglobin A1c Calcium Phosphorus Cholesterol LDL Cholesterol Direct HDL Cholesterol 05/12/21 05/12/21 05/12/21 04:12 07:40 10:02 Hgb Hct MCH MCHC 35 H RDW 12.8 L Plt Count Titus % (Auto) Titus # (Auto) VBG pH Sodium Potassium Chloride Carbon Dioxide 18 L BUN Glucose 279 H POC Glucose 228 H Hemoglobin A1c Calcium Phosphorus Cholesterol LDL Cholesterol Direct HDL Cholesterol 05/12/21 05/12/21 05/12/21 10:57 14:39 15:58 Hgb Hct MCH MCHC RDW Plt Count Titus % (Auto) Titus # (Auto) VBG pH Sodium Potassium 3.2 L Chloride Carbon Dioxide 19 L BUN 8 L Glucose 211 H POC Glucose 214 H 135 H Hemoglobin A1c Calcium 8.1 L Phosphorus Cholesterol LDL Cholesterol Direct HDL Cholesterol 05/12/21 05/12/21 05/12/21 18:09 21:28 22:52 Hgb Hct MCH MCHC RDW Plt Count Titus % (Auto) Titus # (Auto) VBG pH Sodium Potassium 3.2 L Chloride 108.0 H 111.2 H Carbon Dioxide 21 L 17 L BUN 7 L 6 L Glucose 108 H 232 H POC Glucose 282 H Hemoglobin A1c Calcium 8.0 L Phosphorus Cholesterol LDL Cholesterol Direct HDL Cholesterol 05/13/21 05/13/21 05/13/21 01:51 04:22 04:22 Hgb Hct MCH MCHC RDW 12.9 L Plt Count 133 L Titus % (Auto) 13.5 H Titus # (Auto) 1.3 H VBG pH Sodium Potassium Chloride 112.2 H Carbon Dioxide 18 L BUN 6 L Glucose 128 H POC Glucose Hemoglobin A1c Calcium 8.2 L Phosphorus 1.20 L Cholesterol LDL Cholesterol Direct HDL Cholesterol 05/13/21 05/13/21 08:26 11:18 Hgb Hct MCH MCHC RDW Plt Count Titus % (Auto) Titus # (Auto) VBG pH Sodium Potassium Chloride Carbon Dioxide BUN Glucose POC Glucose 146 H 208 H Hemoglobin A1c Calcium Phosphorus Cholesterol LDL Cholesterol Direct HDL Cholesterol
[2021-05-13] MEDS: HALOPERIDOL LACTATE 5 MG/1 ML INJ IV PRN (12:47)
[2021-05-13] MEDS ORDERED: SODIUM PHOSPHATE 45 MMOL in SODIUM CHLORIDE 0.9% 500 ML 500 ML IV SCH (13:30)
[2021-05-13 14:45] LABS: BUN/Creatinine Ratio 10; Blood Urea Nitrogen 8 mg/dL (9-20); Calcium 8.5 mg/dL (8.4-10.2); Hemolysis Index 5
--- NOTE | 2021-05-13 15:38 | Progress Note ---
<SANDYLIZANDROFarooq - Last Filed: 05/13/21 15:34> Assessment and Plan Assessment and plan: This is a 70-year-old male with HTN, DM mated with acute CVA Neuro: Acute CVA -Neurology and neurosurgery consulted, appreciate recommendations -CT brain on admit unremarkable -CTA brain showed branch MCA occlusion in the posterior sylvian fissure region on the left, focal area of narrowing in the right TELEPHONE LINEWORKER, focal area of moderate to high-grade narrowing seen in the nondominant left vertebral artery -CTA neck showed narrowing in the left subclavian/axillary artery, no significant narrowing seen in the common or internal carotid arteries, atherosclerotic disease seen in the vertebral arteries with areas of moderate narrowing -05/10 CT head showed interval evolutionary changes in the CT appearance of the prominent left temporal occipital cortical infarct which is not clearly visible by CT is a large area of cortical and subcortical hypoattenuation, mass-effect with evidence of some compression of the left lateral ventricle and interval development of approximately 4 to 5 mm midline shift, no evidence of hemorrhage and prominent chronic diffuse white matter hypoattenuation and evidence of und erlying age-related cortical atrophy. -05/11 CT head showed significant edema in the left parietotemporal region and minimal portions of left occipital lobe, involvement of left posterior lateral [place] capsular region, edema has mildly progressed from prior with slightly more mass-effect and left to right midline shift (which has increased from 3 to 5 mm at the level of the septum pellucidum) however basal cisterns remain widely patent, mass-effect of the left lateral ventricle, no evidence of hydrocephalus and no definitive signs of hemorrhagic transformation, extensive white matter persists in both cerebral hemispheres. -05/12 CT head shows continued evolution of left MCA distribution infarct with stable mass-effect and left to right midline shift measuring 5 mm with no acute intracranial hemorrhage -05/13 CT head shows continued evolution of left MCA distribution infarct with mass-effect of 6 mm without acute intracranial hemorrhage -Lipid profile noted -Aspirin and Lipitor -Hemoglobin A1c 13 -S/p mannitol -S/p hypertonic saline -Goal sodium > 140, Osmo > 300 -serial sodium and serum osmolarity -Neurochecks per protocol -Allow permissive hypertension, BP less than 180/120 for 24 hours and then BP greater than 150/80 achieved with gradual control -ST/PT/OT consult: ST cleared for pured diet with thin liquids, PT recommends home health PT, OT consult pending -CCM consulted, appreciate recommendations -Neurology spoke to [facility] on 05/10: Will consider transfer if change in mental status or neurological exam, recommended maintaining mannitol, CT brain in a.m., Keppra to 50 mg IV twice daily, neurochecks every 4 hours x24 hours and every shift Cardiac: h/o HTN, HFrEF -Allow permissive hypertension, BP less than 180/120 for 24 hours and then BP greater than 150/80 achieved with gradual control -Blood pressure monitoring per protocol -Echocardiogram shows dilated cardiomyopathy, LVEF 20 to 25%, mild pulmonary hypertension -Restart home cardioprotective medications when obtained if appropriate Respiratory: NAD -Supplemental oxygen as needed -Pulmonary hygiene -SPO2 monitoring GI: NAD -24 hours +1570 mL -PPI -ST cleared for pured diet with thin liquids -BR: Colace : Hyperchloremia, metabolic acidosis, hypophosphatemia -Strict intake and output -Avoid nephrotoxic medications -Trend BMP -Replete phosphate ID: NAD -Monitor WBC and temperature curve Endo: Hyperglycemia, h/o DM -Avoid hypoglycemia -SSI -Accu-Cheks AC at bedtime -Long-acting insulin, titrate as needed -Added lispro 5 units TID -Hemoglobin A1c 13 Heme: NAD -Trend CBC -Transfuse hemoglobin less than 7 -Monitor for signs of bleeding -SCDs to BLE while in bed -Heparin subcu The high probability of a clinically significant, sudden or life threatening deterioration of the [neuro] system(s) required my full and direct attention, intervention and personal management. The aggregate critical care time was [60] minutes. This time is in addition to time spent performing reported procedures but includes the following: [x] Data Review and interpretation [x] Patient assessment and monitoring of vital signs [x] Documentation [x] Medication orders and management Disposition Plan: icu Total Time Spent with Patient (Minutes): 60 History Interval history: This is 70-year-old male with HTN, DM who presented to emergency department on 05/09 with AMS and strokelike symptoms, and per family was noticed to have be walking into the [place] and confused therefore EMS was called. Initial blood pressure on arrival of EMS was 150/100 and glucose was 364 and family stated the symptoms started around dinnertime earlier in the evening. Recommend emergency department included CT head which showed no acute abnormality, CTA head showed branch MCA occlusion, focal area of narrowing in the right TELEPHONE LINEWORKER, focal area of moderate to high-grade narrowing in the nondominant left vertebral artery and CTA neck showed narrowing of the left subclavian/axillary artery with arthrosclerotic disease seen in the vertebral arteries with areas of moderate narrowing and lab work was significant for hyperglycemia of 451. Patient was evaluated by teleneurologist and was scheduled for MRI brain, carotid Dopplers and echocardiogram, hemoglobin A1c and lipid profile. Patient passed bedside swallow evaluation in the ED and received aspirin. Patient was admitted to the hospital service with consults to neurology for acute CVA. Hospital course to date: 05/09: Patient was transferred to ICU from telemetry due to large CVA lesion and chance of edema cannot be excluded and started on mannitol 40 mg IV now and 25 mg 4 times daily for 3 days with hourly neuro checks and repeat CT head in the a.m. 05/10: Patient has hyponatremia, started on mannitol for 4 days per neurology, CT head pending. 05/11: Neuro status unchanged, repeat CT head obtained which showed slight worsening of shift, neurosurgery was contacted yesterday and plans to transfer patient to tertiary center was unsuccessful. Started on 3% saline with frequent lab checks. Lantus increased. [facility] Neurosurg was contacted last evening by Dr. Sierra. 05/12: Lantus adjusted, CT head without significant changes. Will obtain CT head in the a.m. This afternoon patient was hypokalemic and potassium was repleted. Given Haldol for agitation. 05/13: Patient had a repeat CT head which showed slight worsening, hypertonic saline stopped, phosphorus repleted. Hospitalist Physical - Constitutional Vitals: Temp Pulse Resp BP Pulse Ox 98.9 F 83 19 147/85 98 05/13/21 03:16 05/13/21 14:00 05/13/21 14:00 05/13/21 14:00 05/13/21 14:00 General appearance: Present: no acute distress, well-nourished - EENT Eyes: Present: PERRL, EOM intact ENT: hearing intact, clear oral mucosa - Neck Neck: Present: normal ROM - Respiratory Respiratory effort: normal Respiratory: bilateral: CTA - Cardiovascular Rhythm: regular Heart Sounds: Present: S1 & S2. Absent: systolic murmur, diastolic murmur - Extremities Extremities: no ischemia, pulses intact, pulses symmetrical, No edema, normal temperature, normal color Peripheral Pulses: within normal limits - Abdominal General gastrointestinal: soft, non-tender, non-distended, normal bowel sounds - Integumentary Integumentary: Present: warm, dry - Psychiatric Psychiatric: cooperative - Neurologic Neurologic: other (aphasia, right sided suzanne neglect) - Allied Health Allied health notes reviewed: nursing, PT, ST, OT, RT, social work HEART Score - HEART Score Troponin: Troponin T < 0.010 ng/mL (0.00-0.029) 05/09/21 01:28 Results - Labs CBC & Chem 7: 05/13/21 04:22 05/13/21 13:55 Labs: Laboratory Last Values WBC 9.8 K/mm3 (4.5-11.0) 05/13/21 04:22 RBC 4.40 M/mm3 (3.65-5.03) 05/13/21 04:22 Hgb 13.7 gm/dl (11.8-15.2) 05/13/21 04:22 Hct 41.1 % (35.5-45.6) 05/13/21 04:22 MCV 93 fl (84-94) 05/13/21 04:22 MCH 31 pg (28-32) 05/13/21 04:22 MCHC 33 % (32-34) 05/13/21 04:22 RDW 12.9 % (13.2-15.2) L 05/13/21 04:22 Plt Count 133 K/mm3 (140-440) L 05/13/21 04:22 Lymph % (Auto) 17.4 % (13.4-35.0) 05/13/21 04:22 [place] % (Auto) 13.5 % (0.0-7.3) H 05/13/21 04:22 Eos % (Auto) 0.4 % (0.0-4.3) 05/13/21 04:22 Baso % (Auto) 0.9 % (0.0-1.8) 05/13/21 04:22 Lymph # (Auto) 1.7 K/mm3 (1.2-5.4) 05/13/21 04:22 [place] # (Auto) 1.3 K/mm3 (0.0-0.8) H 05/13/21 04:22 Eos # (Auto) 0.0 K/mm3 (0.0-0.4) 05/13/21 04:22 Baso # (Auto) 0.1 K/mm3 (0.0-0.1) 05/13/21 04:22 Seg Neutrophils % 67.8 % (40.0-70.0) 05/13/21 04:22 Seg Neutrophils # 6.6 K/mm3 (1.8-7.7) 05/13/21 04:22 PT 14.0 Sec. (12.2-14.9) 05/09/21 01:28 INR 0.97 (0.87-1.13) 05/09/21 01:28 APTT 27.7 Sec. (24.2-36.6) 05/09/21 01:28 Thrombin Time 16.9 Sec. (15.1-19.6) 05/09/21 01:28 VBG pH 7.484 (7.320-7.420) H 05/09/21 01:31 Sodium 139 mmol/L (137-145) 05/13/21 13:55 Potassium 3.9 mmol/L (3.6-5.0) 05/13/21 13:55 Chloride 108.5 mmol/L (98-107) H 05/13/21 13:55 Carbon Dioxide 18 mmol/L (22-30) L 05/13/21 13:55 Anion Gap 16 mmol/L 05/13/21 13:55 BUN 8 mg/dL (9-20) L 05/13/21 13:55 Creatinine 0.8 mg/dL (0.8-1.3) 05/13/21 13:55 Estimated GFR > 60 ml/min 05/13/21 13:55 BUN/Creatinine Ratio 10 % 05/13/21 13:55 Glucose 246 mg/dL (75-100) H 05/13/21 13:55 POC Glucose 208 mg/dL (70-105) H 05/13/21 11:18 Hemoglobin A1c 13.0 % (4-6) H 05/10/21 18:26 Osmolality 304 Mosm/kg 05/13/21 13:55 Calcium 8.5 mg/dL (8.4-10.2) 05/13/21 13:55 Phosphorus 1.20 mg/dL (2.5-4.5) L 05/13/21 04:22 Magnesium 2.00 mg/dL (1.7-2.3) 05/13/21 04:22 Total Bilirubin 0.50 mg/dL (0.1-1.2) 05/09/21 01:28 AST 9 units/L (5-40) 05/09/21 01:28 ALT 7 units/L (7-56) 05/09/21 01:28 Alkaline Phosphatase 93 units/L (35-129) 05/09/21 01:28 Total Creatine Kinase 88 units/L (55-170) 05/09/21 01:28 CK-MB (CK-2) 2.0 ng/mL (0.0-4.0) 05/09/21 01:28 CK-MB (CK-2) Rel Index 2.2 (0-4) 05/09/21 01:28 Troponin T < 0.010 ng/mL (0.00-0.029) 05/09/21 01:28 Total Protein 6.4 g/dL (6.3-8.2) 05/09/21 01:28 Albumin 3.9 g/dL (3.9-5) 05/09/21 01:28 Albumin/Globulin Ratio 1.6 % 05/09/21 01:28 Triglycerides 123 mg/dL (2-149) 05/10/21 06:33 Cholesterol 265 mg/dL (50-199) H 05/10/21 06:33 LDL Cholesterol Direct 212 mg/dL (50-130) H 05/10/21 06:33 HDL Cholesterol 35 mg/dL (40-59) L 05/10/21 06:33 Cholesterol/HDL Ratio 7.57 % 05/10/21 06:33 Urine Color Straw (Yellow) 05/09/21 Unknown Urine Turbidity Clear (Clear) 05/09/21 Unknown Urine pH 7.0 (5.0-7.0) 05/09/21 Unknown Ur Specific [place] 1.028 (1.003-1.030) 05/09/21 Unknown Urine Protein 30 mg/dl mg/dL (Negative) 05/09/21 Unknown Urine Glucose (UA) >=500 mg/dL (Negative) 05/09/21 Unknown Urine Ketones Neg mg/dL (Negative) 05/09/21 Unknown Urine Blood Neg (Negative) 05/09/21 Unknown Urine Nitrite Neg (Negative) 05/09/21 Unknown Urine Bilirubin Neg (Negative) 05/09/21 Unknown Urine Urobilinogen < 2.0 mg/dL (<2.0) 05/09/21 Unknown Ur Leukocyte Esterase Neg (Negative) 05/09/21 Unknown Urine WBC (Auto) 1.0 /HPF (0.0-6.0) 05/09/21 Unknown Urine RBC (Auto) 2.0 /HPF (0.0-6.0) 05/09/21 Unknown Castro/IV: Voiding Method Condom Catheter Active Medications - Current Medications Current Medications: Generic Name Dose Route Start Last Admin Trade Name Freq PRN Reason Stop Dose Admin Acetaminophen 650 mg 05/09/21 03:09 Acetaminophen 325 Mg Tab PO Q4H PRN Pain, Mild (1-3) Aspirin 81 mg 05/10/21 10:00 05/13/21 10:57 Aspirin Ec 81 Mg Tab PO 81 mg QDAY GABRIELE Administration Atorvastatin Calcium 40 mg 05/09/21 22:00 05/12/21 21:51 Atorvastatin 40 Mg Tab PO 40 mg QHS GABRIELE Administration Bisacodyl 10 mg 05/09/21 03:09 Bisacodyl 10 Mg Rect Supp AL QDAY PRN Constipation Dextrose 0 ml 05/09/21 03:33 Dextrose 10% *Hypoglycemia IV DIRECT PRN Hypoglycemia Protocol Haloperidol Lactate 5 mg 05/12/21 17:19 05/13/21 12:47 Haloperidol Lactate 5 Mg/1 Ml Inj IV 5 mg Q6HR PRN Administration Agitation Heparin Sodium (Porcine) 5,000 unit 05/09/21 06:00 05/13/21 05:22 Heparin 5,000 Unit/1 Ml Vial SUB-Q 5,000 unit Q8HR GABRIELE Administration Insulin Glargine 15 units 05/12/21 22:00 05/12/21 21:50 Insulin Glargine 100 Units/Ml SUB-Q 15 units QHS GABRIELE Administration Insulin Human Lispro 0 unit 05/09/21 07:30 05/13/21 12:30 Insulin Lispro 100 Unit/Ml SUB-Q 4 unit ACHS GABRIELE Administration Protocol Insulin Human Lispro 5 unit 05/12/21 14:00 05/13/21 08:31 Insulin Lispro 100 Unit/Ml SUB-Q Not Given TID [facility] Magnesium Hydroxide 30 ml 05/09/21 03:09 Magnesium Hydroxide (Mom) Oral Liqd Udc PO Q4H PRN Constipation Metoclopramide HCl 10 mg 05/09/21 03:09 Metoclopramide 10 Mg Tab PO Q6H PRN Nausea And Vomiting Ondansetron HCl 4 mg 05/09/21 03:09 Ondansetron 4 Mg/2 Ml Inj IV Q8H PRN Nausea And Vomiting Sodium Chloride 10 ml 05/09/21 03:09 05/10/21 21:31 Sodium Chloride 0.9% 10 Ml Flush Syringe IV 10 ml PRN PRN Administration LINE FLUSH Nutrition/Malnutrition Assess - Dietary Evaluation Nutrition/Malnutrition Findings: Nutrition Notes Start: 05/09/21 13:59 Freq: Status: Active Protocol: Document 05/12/21 15:16 SHAHIDA (Rec: 05/12/21 15:41 SHAHIDA [id number]) Nutrition Notes Initial or Follow up Assessment Current Diagnosis Diabetes,Hypertension,Stroke Other Pertinent Diagnosis HFrEF, Fluent Aphasia, Metabolic Acidosis. Current Diet Pureed Diet (since D 05/09). Labs/Tests 05/12: CO2 18, Glu 279, HbA1c 13. Pertinent Medications 05/12: Insulin, others nutritionally unremarkable. Height 5 ft 11 in Weight 86.183 kg [facility] Body Weight (kg) 78.18 BMI 26.4 Weight change and time frame None reported at admission. No body weight change reported in 3 days. Weight Status Overweight Subjective/Other Information RD consult for routine F/U on TALENT DEVELOPMENT CONSULTANT evaluation. RN note 05/10: Patient was able to feed himself breakfast and lunch. TALENT DEVELOPMENT CONSULTANT evaluation was not performed; will reschedule. Bedside swallow screen passed on 05/12. Percent of energy/protein needs met: Prescribed Pureed Diet provides for energy/protein needs (1,804 Kcal/77 g) during LOS. Burn Absent Trauma Absent GI Symptoms None Difficulty In Swallowing Food Allergy No Skin Integrity/Comment Assessment WNL. Current % PO Good (75-100%) Minimum of two criteria No #1 Nutrition Diagnosis Swallowing difficulty Etiology Acute CVA. As Evidenced by Signs and Symptoms Swallow screen failed, althouhg, improving. Is patient on ventilator? No Is Patient Ambulatory and/or Out of Bed No REE-([facility]-confined to bed) 1966.620 Calculation Used for Recommendations [place] Additional Notes Protein: 1-1.2 g/Kg; 86-103 g/ day. Fluids: 1 ml/Kcal, or as per MD. Nutrition Intervention Change Diet Order: Continue Pureed Diet. Goal #1 Facilitate PO intake of meals with mechanical modification during LOS. Goal #2 Maintain body weight within +/ -3% of admission body weight during LOS. Follow-Up By: 05/16/21 Additional Comments Continue monitoring food tolerance, %PO intake of meals , and BM. <IMELDA SARMIENTO - Last Filed: 05/13/21 20:35> Assessment and Plan Assessment and plan: I saw and evaluated the patient. I agree with the findings and the plan of care as documented in the Nurse Practitioner's~note, with the following corrections and additions. Hospitalist Physical - Constitutional Vitals: Temp Pulse Resp BP Pulse Ox 98.9 F 69 22 168/91 100 05/13/21 03:16 05/13/21 17:01 05/13/21 17:01 05/13/21 18:01 05/13/21 18:01 HEART Score - HEART Score Troponin: Troponin T < 0.010 ng/mL (0.00-0.029) 05/09/21 01:28 Results - Labs CBC & Chem 7: 05/13/21 04:22 05/13/21 13:55 Labs: Laboratory Last Values WBC 9.8 K/mm3 (4.5-11.0) 05/13/21 04:22 RBC 4.40 M/mm3 (3.65-5.03) 05/13/21 04:22 Hgb 13.7 gm/dl (11.8-15.2) 05/13/21 04:22 Hct 41.1 % (35.5-45.6) 05/13/21 04:22 MCV 93 fl (84-94) 05/13/21 04:22 MCH 31 pg (28-32) 05/13/21 04:22 MCHC 33 % (32-34) 05/13/21 04:22 RDW 12.9 % (13.2-15.2) L 05/13/21 04:22 Plt Count 133 K/mm3 (140-440) L 05/13/21 04:22 Lymph % (Auto) 17.4 % (13.4-35.0) 05/13/21 04:22 [place] % (Auto) 13.5 % (0.0-7.3) H 05/13/21 04:22 Eos % (Auto) 0.4 % (0.0-4.3) 05/13/21 04:22 Baso % (Auto) 0.9 % (0.0-1.8) 05/13/21 04:22 Lymph # (Auto) 1.7 K/mm3 (1.2-5.4) 05/13/21 04:22 [place] # (Auto) 1.3 K/mm3 (0.0-0.8) H 05/13/21 04:22 Eos # (Auto) 0.0 K/mm3 (0.0-0.4) 05/13/21 04:22 Baso # (Auto) 0.1 K/mm3 (0.0-0.1) 05/13/21 04:22 Seg Neutrophils % 67.8 % (40.0-70.0) 05/13/21 04:22 Seg Neutrophils # 6.6 K/mm3 (1.8-7.7) 05/13/21 04:22 PT 14.0 Sec. (12.2-14.9) 05/09/21 01:28 INR 0.97 (0.87-1.13) 05/09/21 01:28 APTT 27.7 Sec. (24.2-36.6) 05/09/21 01:28 Thrombin Time 16.9 Sec. (15.1-19.6) 05/09/21 01:28 VBG pH 7.484 (7.320-7.420) H 05/09/21 01:31 Sodium 139 mmol/L (137-145) 05/13/21 13:55 Potassium 3.9 mmol/L (3.6-5.0) 05/13/21 13:55 Chloride 108.5 mmol/L (98-107) H 05/13/21 13:55 Carbon Dioxide 18 mmol/L (22-30) L 05/13/21 13:55 Anion Gap 16 mmol/L 05/13/21 13:55 BUN 8 mg/dL (9-20) L 05/13/21 13:55 Creatinine 0.8 mg/dL (0.8-1.3) 05/13/21 13:55 Estimated GFR > 60 ml/min 05/13/21 13:55 BUN/Creatinine Ratio 10 % 05/13/21 13:55 Glucose 246 mg/dL (75-100) H 05/13/21 13:55 POC Glucose 195 mg/dL (70-105) H 05/13/21 16:18 Hemoglobin A1c 13.0 % (4-6) H 05/10/21 18:26 Osmolality 304 Mosm/kg 05/13/21 13:55 Calcium 8.5 mg/dL (8.4-10.2) 05/13/21 13:55 Phosphorus 1.20 mg/dL (2.5-4.5) L 05/13/21 04:22 Magnesium 2.00 mg/dL (1.7-2.3) 05/13/21 04:22 Total Bilirubin 0.50 mg/dL (0.1-1.2) 05/09/21 01:28 AST 9 units/L (5-40) 05/09/21 01:28 ALT 7 units/L (7-56) 05/09/21 01:28 Alkaline Phosphatase 93 units/L (35-129) 05/09/21 01:28 Total Creatine Kinase 88 units/L (55-170) 05/09/21 01:28 CK-MB (CK-2) 2.0 ng/mL (0.0-4.0) 05/09/21 01:28 CK-MB (CK-2) Rel Index 2.2 (0-4) 05/09/21 01:28 Troponin T < 0.010 ng/mL (0.00-0.029) 05/09/21 01:28 Total Protein 6.4 g/dL (6.3-8.2) 05/09/21 01:28 Albumin 3.9 g/dL (3.9-5) 05/09/21 01:28 Albumin/Globulin Ratio 1.6 % 05/09/21 01:28 Triglycerides 123 mg/dL (2-149) 05/10/21 06:33 Cholesterol 265 mg/dL (50-199) H 05/10/21 06:33 LDL Cholesterol Direct 212 mg/dL (50-130) H 05/10/21 06:33 HDL Cholesterol 35 mg/dL (40-59) L 05/10/21 06:33 Cholesterol/HDL Ratio 7.57 % 05/10/21 06:33 Urine Color Straw (Yellow) 05/09/21 Unknown Urine Turbidity Clear (Clear) 05/09/21 Unknown Urine pH 7.0 (5.0-7.0) 05/09/21 Unknown Ur Specific [place] 1.028 (1.003-1.030) 05/09/21 Unknown Urine Protein 30 mg/dl mg/dL (Negative) 05/09/21 Unknown Urine Glucose (UA) >=500 mg/dL (Negative) 05/09/21 Unknown Urine Ketones Neg mg/dL (Negative) 05/09/21 Unknown Urine Blood Neg (Negative) 05/09/21 Unknown Urine Nitrite Neg (Negative) 05/09/21 Unknown Urine Bilirubin Neg (Negative) 05/09/21 Unknown Urine Urobilinogen < 2.0 mg/dL (<2.0) 05/09/21 Unknown Ur Leukocyte Esterase Neg (Negative) 05/09/21 Unknown Urine WBC (Auto) 1.0 /HPF (0.0-6.0) 05/09/21 Unknown Urine RBC (Auto) 2.0 /HPF (0.0-6.0) 05/09/21 Unknown Castro/IV: Voiding Method Condom Catheter Active Medications - Current Medications Current Medications: Generic Name Dose Route Start Last Admin Trade Name Freq PRN Reason Stop Dose Admin Acetaminophen 650 mg 05/09/21 03:09 Acetaminophen 325 Mg Tab PO Q4H PRN Pain, Mild (1-3) Aspirin 81 mg 05/10/21 10:00 05/13/21 10:57 Aspirin Ec 81 Mg Tab PO 81 mg QDAY GABRIELE Administration Atorvastatin Calcium 40 mg 05/09/21 22:00 05/12/21 21:51 Atorvastatin 40 Mg Tab PO 40 mg QHS GABRIELE Administration Bisacodyl 10 mg 05/09/21 03:09 Bisacodyl 10 Mg Rect Supp AL QDAY PRN Constipation Dextrose 0 ml 05/09/21 03:33 Dextrose 10% *Hypoglycemia IV DIRECT PRN Hypoglycemia Protocol Haloperidol Lactate 5 mg 05/12/21 17:19 05/13/21 12:47 Haloperidol Lactate 5 Mg/1 Ml Inj IV 5 mg Q6HR PRN Administration Agitation Heparin Sodium (Porcine) 5,000 unit 05/09/21 06:00 05/13/21 15:00 Heparin 5,000 Unit/1 Ml Vial SUB-Q 5,000 unit Q8HR GABRIELE Administration Insulin Glargine 15 units 05/12/21 22:00 05/12/21 21:50 Insulin Glargine 100 Units/Ml SUB-Q 15 units QHS GABRIELE Administration Insulin Human Lispro 0 unit 05/09/21 07:30 05/13/21 16:42 Insulin Lispro 100 Unit/Ml SUB-Q 3 unit ACHS GABRIELE Administration Protocol Insulin Human Lispro 5 unit 05/12/21 14:00 05/13/21 15:30 Insulin Lispro 100 Unit/Ml SUB-Q 5 unit TID GABRIELE Administration Labetalol HCl 10 mg 05/13/21 18:25 Labetalol 20 Mg/4 Ml Inj IV Q4HR PRN Hypertension Losartan Potassium 12.5 mg 05/13/21 20:00 Losartan 25 Mg Tab PO QDAY GABRIELE Magnesium Hydroxide 30 ml 05/09/21 03:09 Magnesium Hydroxide (Mom) Oral Liqd Udc PO Q4H PRN Constipation Metoclopramide HCl 10 mg 05/09/21 03:09 Metoclopramide 10 Mg Tab PO Q6H PRN Nausea And Vomiting Ondansetron HCl 4 mg 05/09/21 03:09 Ondansetron 4 Mg/2 Ml Inj IV Q8H PRN Nausea And Vomiting Sodium Chloride 10 ml 05/09/21 03:09 05/10/21 21:31 Sodium Chloride 0.9% 10 Ml Flush Syringe IV 10 ml PRN PRN Administration LINE FLUSH Nutrition/Malnutrition Assess - Dietary Evaluation Nutrition/Malnutrition Findings: Nutrition Notes Start: 05/09/21 13:59 Freq: Status: Active Protocol: Document 05/12/21 15:16 SHAHIDA (Rec: 05/12/21 15:41 SHAHIDA [id number]) Nutrition Notes Initial or Follow up Assessment Current Diagnosis Diabetes,Hypertension,Stroke Other Pertinent Diagnosis HFrEF, Fluent Aphasia, Metabolic Acidosis. Current Diet Pureed Diet (since D 05/09). Labs/Tests 05/12: CO2 18, Glu 279, HbA1c 13. Pertinent Medications 05/12: Insulin, others nutritionally unremarkable. Height 5 ft 11 in Weight 86.183 kg [facility] Body Weight (kg) 78.18 BMI 26.4 Weight change and time frame None reported at admission. No body weight change reported in 3 days. Weight Status Overweight Subjective/Other Information RD consult for routine F/U on TALENT DEVELOPMENT CONSULTANT evaluation. RN note 05/10: Patient was able to feed himself breakfast and lunch. TALENT DEVELOPMENT CONSULTANT evaluation was not performed; will reschedule. Bedside swallow screen passed on 05/12. Percent of energy/protein needs met: Prescribed Pureed Diet provides for energy/protein needs (1,804 Kcal/77 g) during LOS. Burn Absent Trauma Absent GI Symptoms None Difficulty In Swallowing Food Allergy No Skin Integrity/Comment Assessment WNL. Current % PO Good (75-100%) Minimum of two criteria No #1 Nutrition Diagnosis Swallowing difficulty Etiology Acute CVA. As Evidenced by Signs and Symptoms Swallow screen failed, althouhg, improving. Is patient on ventilator? No Is Patient Ambulatory and/or Out of Bed No REE-([facility]-confined to bed) 1966.620 Calculation Used for Recommendations [facility] Additional Notes Protein: 1-1.2 g/Kg; 86-103 g/ day. Fluids: 1 ml/Kcal, or as per MD. Nutrition Intervention Change Diet Order: Continue Pureed Diet. Goal #1 Facilitate PO intake of meals with mechanical modification during LOS. Goal #2 Maintain body weight within +/ -3% of admission body weight during LOS. Follow-Up By: 05/16/21 Additional Comments Continue monitoring food tolerance, %PO intake of meals , and BM.
--- NOTE | 2021-05-13 17:40 | Progress Note ---
Assessment and Plan 70 y/o male with large stroke 05/13/21: Neurology wants to continue hypertonic saline. Called and asked about future plans and they referred me to neurosurgery. Given need for hypertonic saline, will keep in ICU. 05/12/21: Follow up neurology recs. Continue hypertonic saline as per neurology. 05/11/21: Will ask neurosurgery to see patient as there are no available ICU beds in the city. Will speak with neurology about stopping mannitol and asking if they want hypertonic saline given CT reports from this am. Keppra not started on yesterday, will ask if this is still needed. Suggest continue q4 hour neuro checks and follow neurosurgery and neurology recs for today. Continue ICU monitoring. 1. Mannitol with monitoring 2. Check Na and serum osms frequently 3. Per Neuro only needs q shift neuro checks 4. BP control 5. need to obtain home medication list and restart home meds 6. Guarded prognosis. Subjective Date of service: 05/13/21 Principal diagnosis: stable clinicaly Interval history: clinically unchanged. Still gets agitated and frustrated. Objective - Constitutional Vitals: Vital Signs - 12hr 05/13/21 05/13/21 05/13/21 06:00 07:01 08:00 Pulse Rate 66 57 L 62 Pulse Rate [ 61 From Monitor] Respiratory 22 13 14 Rate Blood Pressure 138/79 145/83 O2 Sat by Pulse 99 100 100 Oximetry 05/13/21 05/13/21 05/13/21 08:01 09:05 10:00 Pulse Rate 60 64 63 Pulse Rate [ From Monitor] Respiratory 14 17 23 Rate Blood Pressure 139/88 150/86 151/79 O2 Sat by Pulse 100 100 100 Oximetry 05/13/21 05/13/21 05/13/21 11:00 11:43 11:58 Pulse Rate 65 60 Pulse Rate [ 77 From Monitor] Respiratory 21 14 Rate Blood Pressure 151/79 O2 Sat by Pulse 100 98 Oximetry 05/13/21 05/13/21 05/13/21 12:02 13:00 14:00 Pulse Rate 73 74 83 Pulse Rate [ From Monitor] Respiratory 25 H 22 19 Rate Blood Pressure 164/94 157/91 147/85 O2 Sat by Pulse 98 95 98 Oximetry 05/13/21 05/13/21 15:01 16:01 Pulse Rate 79 68 Pulse Rate [ From Monitor] Respiratory 23 17 Rate Blood Pressure 147/85 147/85 O2 Sat by Pulse 100 96 Oximetry - Labs CBC & Chem 7: 05/13/21 04:22 05/14/21 04:22 Labs: Abnormal lab results 05/12/21 05/12/21 05/12/21 Range/Units 18:09 21:28 22:52 RDW (13.2-15.2) % Plt Count (140-440) K/mm3 [place] % (Auto) (0.0-7.3) % [place] # (Auto) (0.0-0.8) K/mm3 Potassium 3.2 L (3.6-5.0) mmol/L Chloride 108.0 H 111.2 H (98-107) mmol/L Carbon Dioxide 21 L 17 L (22-30) mmol/L BUN 7 L 6 L (9-20) mg/dL Glucose 108 H 232 H (75-100) mg/dL POC Glucose 282 H (70-105) mg/dL Calcium 8.0 L (8.4-10.2) mg/dL Phosphorus (2.5-4.5) mg/dL 05/13/21 05/13/21 05/13/21 Range/Units 01:51 04:22 04:22 RDW 12.9 L (13.2-15.2) % Plt Count 133 L (140-440) K/mm3 [place] % (Auto) 13.5 H (0.0-7.3) % [place] # (Auto) 1.3 H (0.0-0.8) K/mm3 Potassium (3.6-5.0) mmol/L Chloride 112.2 H (98-107) mmol/L Carbon Dioxide 18 L (22-30) mmol/L BUN 6 L (9-20) mg/dL Glucose 128 H (75-100) mg/dL POC Glucose (70-105) mg/dL Calcium 8.2 L (8.4-10.2) mg/dL Phosphorus 1.20 L (2.5-4.5) mg/dL 05/13/21 05/13/21 05/13/21 Range/Units 08:26 11:18 13:55 RDW (13.2-15.2) % Plt Count (140-440) K/mm3 [place] % (Auto) (0.0-7.3) % [place] # (Auto) (0.0-0.8) K/mm3 Potassium (3.6-5.0) mmol/L Chloride 108.5 H (98-107) mmol/L Carbon Dioxide 18 L (22-30) mmol/L BUN 8 L (9-20) mg/dL Glucose 246 H (75-100) mg/dL POC Glucose 146 H 208 H (70-105) mg/dL Calcium (8.4-10.2) mg/dL Phosphorus (2.5-4.5) mg/dL 05/13/21 Range/Units 16:18 RDW (13.2-15.2) % Plt Count (140-440) K/mm3 [place] % (Auto) (0.0-7.3) % [place] # (Auto) (0.0-0.8) K/mm3 Potassium (3.6-5.0) mmol/L Chloride (98-107) mmol/L Carbon Dioxide (22-30) mmol/L BUN (9-20) mg/dL Glucose (75-100) mg/dL POC Glucose 195 H (70-105) mg/dL Calcium (8.4-10.2) mg/dL Phosphorus (2.5-4.5) mg/dL Medications & Allergies - Medications Allergies/Adverse Reactions: Allergies No Known Allergies Allergy (Verified 05/09/21 01:02) Active Medications: Generic Name Dose Route Start Last Admin Trade Name Freq PRN Reason Stop Dose Admin Acetaminophen 650 mg 05/09/21 03:09 Acetaminophen 325 Mg Tab PO Q4H PRN Pain, Mild (1-3) Aspirin 81 mg 05/10/21 10:00 05/13/21 10:57 Aspirin Ec 81 Mg Tab PO 81 mg QDAY GABRIELE Administration Atorvastatin Calcium 40 mg 05/09/21 22:00 05/12/21 21:51 Atorvastatin 40 Mg Tab PO 40 mg QHS GABRIELE Administration Bisacodyl 10 mg 05/09/21 03:09 Bisacodyl 10 Mg Rect Supp [place] QDAY PRN Constipation Dextrose 0 ml 05/09/21 03:33 Dextrose 10% *Hypoglycemia IV DIRECT PRN Hypoglycemia Protocol Haloperidol Lactate 5 mg 05/12/21 17:19 05/13/21 12:47 Haloperidol Lactate 5 Mg/1 Ml Inj IV 5 mg Q6HR PRN Administration Agitation Heparin Sodium (Porcine) 5,000 unit 05/09/21 06:00 05/13/21 15:00 Heparin 5,000 Unit/1 Ml Vial SUB-Q 5,000 unit Q8HR GABRIELE Administration Insulin Glargine 15 units 05/12/21 22:00 05/12/21 21:50 Insulin Glargine 100 Units/Ml SUB-Q 15 units QHS GABRIELE Administration Insulin Human Lispro 0 unit 05/09/21 07:30 05/13/21 16:42 Insulin Lispro 100 Unit/Ml SUB-Q 3 unit ACHS GABRIELE Administration Protocol Insulin Human Lispro 5 unit 05/12/21 14:00 05/13/21 15:30 Insulin Lispro 100 Unit/Ml SUB-Q 5 unit TID GABRIELE Administration Magnesium Hydroxide 30 ml 05/09/21 03:09 Magnesium Hydroxide (Mom) Oral Liqd Udc PO Q4H PRN Constipation Metoclopramide HCl 10 mg 05/09/21 03:09 Metoclopramide 10 Mg Tab PO Q6H PRN Nausea And Vomiting Ondansetron HCl 4 mg 05/09/21 03:09 Ondansetron 4 Mg/2 Ml Inj IV Q8H PRN Nausea And Vomiting Sodium Chloride 10 ml 05/09/21 03:09 05/10/21 21:31 Sodium Chloride 0.9% 10 Ml Flush Syringe IV 10 ml PRN PRN Administration LINE FLUSH HEART Score - HEART Score Troponin: Troponin T < 0.010 ng/mL (0.00-0.029) 05/09/21 01:28
[2021-05-13] MEDS ORDERED: LOSARTAN 25 MG TAB PO SCH (20:00)
[2021-05-13] MEDS: INSULIN GLARGINE 100 UNITS/ML SUB-Q SCH (21:56)
[2021-05-13 23:04] LABS: Blood Urea Nitrogen 5 mg/dL (9-20); Calcium 8.5 mg/dL (8.4-10.2); Hemolysis Index 50
[2021-05-13 23:05] LABS: BUN/Creatinine Ratio 7
[2021-05-14 05:11] LABS: Blood Urea Nitrogen 4 mg/dL (9-20); Calcium 8.3 mg/dL (8.4-10.2); Hemolysis Index 15
[2021-05-14 05:17] LABS: BUN/Creatinine Ratio 6
[2021-05-14] MEDS: HEPARIN 5,000 UNIT/1 ML VIAL SUB-Q SCH (05:46)
[2021-05-14] MEDS: INSULIN LISPRO 100 UNIT/ML SUB-Q SCH ×7 (08:33→22:58)
[2021-05-14] MEDS ORDERED: POTASSIUM CHLORIDE ER 20 MEQ TAB PO SCH (09:00)
[2021-05-14] MEDS: ASPIRIN EC 81 MG TAB PO SCH (09:22)
--- NOTE | 2021-05-14 09:33 | Cat Scan Report ---
NONENHANCED CT SCAN OF THE HEAD: INDICATION / CLINICAL INFORMATION: 70 years Male; cva. Follow-up of left middle cerebral artery territory infarction TECHNIQUE: Routine CT head without contrast. All CT scans at this location are performed using CT dos e reduction for ALARA by means of automated exposure control. COMPARISON: CT scan of the head from 05/13/2021, 05/12/2021 and 05/09/2019 FINDINGS: BRAIN / INTRACRANIAL CONTENTS: Subacute infarction seen in the recent CT images has not progressed. No hemorrhagic changes. However, increasing mass effect over the left lateral ventricle with increasing [id number] midline shift ( from 8 mm to 10 mm). Suprasellar cistern is not effaced. No descending tentorial herniation. CRANIOCERVICAL JUNCTION: No significant abnormality. ORBITS: No significant abnormality of visualized orbits. SINUSES / MASTOIDS: No significant abnormality of the visualized paranasal sinuses or mastoid air jesika ls. ADDITIONAL FINDINGS: None. IMPRESSION: Left middle cerebral artery territory infarction has not progressed No hemorrhagic changes However, increasing mass effect over the left lateral ventricle with increasing [id number] midline shift Signer Name: Celeste Esquivel MD Signed: 05/14/2021 9:29 AM Workstation Name: [id number]
[2021-05-14] MEDS ORDERED: LOSARTAN 25 MG TAB PO SCH (10:00)
--- NOTE | 2021-05-14 11:06 | Progress Note ---
Assessment and Plan 70 y/o male with large stroke 05/14/21: Neurology not available in person on the weekend, only tele. Discussed with [facility], they may consider tele consult to neuro. Continue neuro checks. Guarded prognosis. 05/13/21: Neurology wants to continue hypertonic saline. Called and asked about future plans and they referred me to neurosurgery. Given need for hypertonic saline, will keep in ICU. 05/12/21: Follow up neurology recs. Continue hypertonic saline as per neurology. 05/11/21: Will ask neurosurgery to see patient as there are no available ICU beds in the city. Will speak with neurology about stopping mannitol and asking if they want hypertonic saline given CT reports from this am. Keppra not started on yesterday, will ask if this is still needed. Suggest continue q4 hour neuro checks and follow neurosurgery and neurology recs for today. Continue ICU monitoring. 1. Mannitol with monitoring 2. Check Na and serum osms frequently 3. Per Neuro only needs q shift neuro checks 4. BP control 5. need to obtain home medication list and restart home meds 6. Guarded prognosis. Subjective Date of service: 05/14/21 Principal diagnosis: stable clinicaly Interval history: clinically no change. New CT this am shows worsening mass effect Objective - Constitutional Vitals: Vital Signs - 12hr 05/13/21 05/13/21 05/14/21 23:19 23:47 00:00 Temperature 97.9 F Pulse Rate 64 85 Pulse Rate [ 85 From Monitor] Respiratory 20 30 H Rate Blood Pressure 179/89 160/96 O2 Sat by Pulse 100 97 Oximetry 05/14/21 05/14/21 05/14/21 01:00 02:01 03:00 Temperature Pulse Rate 70 71 72 Pulse Rate [ From Monitor] Respiratory 21 14 27 H Rate Blood Pressure 147/86 155/83 141/96 O2 Sat by Pulse 97 99 Oximetry 05/14/21 05/14/21 05/14/21 03:35 04:00 05:00 Temperature 98.3 F Pulse Rate 64 59 L Pulse Rate [ 64 From Monitor] Respiratory 18 18 Rate Blood Pressure 155/82 161/88 O2 Sat by Pulse 98 100 Oximetry 05/14/21 05/14/21 05/14/21 06:01 07:01 07:18 Temperature Pulse Rate 70 70 67 Pulse Rate [ From Monitor] Respiratory 20 24 Rate Blood Pressure 177/84 177/84 173/85 O2 Sat by Pulse 98 100 Oximetry 05/14/21 05/14/21 05/14/21 08:00 08:01 09:18 Temperature Pulse Rate 69 61 64 Pulse Rate [ 64 From Monitor] Respiratory 18 17 16 Rate Blood Pressure 161/98 O2 Sat by Pulse 98 100 Oximetry 05/14/21 05/14/21 05/14/21 09:19 09:22 09:32 Temperature 98.4 F Pulse Rate 69 Pulse Rate [ From Monitor] Respiratory Rate Blood Pressure 165/85 O2 Sat by Pulse 100 Oximetry 05/14/21 10:01 Temperature Pulse Rate 71 Pulse Rate [ From Monitor] Respiratory 21 Rate Blood Pressure 156/100 O2 Sat by Pulse 98 Oximetry - Labs CBC & Chem 7: 05/13/21 04:22 05/14/21 04:22 Labs: Abnormal lab results 05/13/21 05/13/21 05/13/21 Range/Units 11:18 13:55 16:18 Potassium (3.6-5.0) mmol/L Chloride 108.5 H (98-107) mmol/L Carbon Dioxide 18 L (22-30) mmol/L BUN 8 L (9-20) mg/dL Creatinine (0.8-1.3) mg/dL Glucose 246 H (75-100) mg/dL POC Glucose 208 H 195 H (70-105) mg/dL Calcium (8.4-10.2) mg/dL 05/13/21 05/13/21 05/14/21 Range/Units 21:24 22:24 04:22 Potassium 3.3 L (3.6-5.0) mmol/L Chloride 107.4 H 107.5 H (98-107) mmol/L Carbon Dioxide 17 L 17 L (22-30) mmol/L BUN 5 L 4 L (9-20) mg/dL Creatinine 0.7 L 0.7 L (0.8-1.3) mg/dL Glucose 218 H 153 H (75-100) mg/dL POC Glucose 224 H (70-105) mg/dL Calcium 8.3 L (8.4-10.2) mg/dL 05/14/21 Range/Units 07:59 Potassium (3.6-5.0) mmol/L Chloride (98-107) mmol/L Carbon Dioxide (22-30) mmol/L BUN (9-20) mg/dL Creatinine (0.8-1.3) mg/dL Glucose (75-100) mg/dL POC Glucose 169 H (70-105) mg/dL Calcium (8.4-10.2) mg/dL Medications & Allergies - Medications Allergies/Adverse Reactions: Allergies No Known Allergies Allergy (Verified 05/09/21 01:02) Active Medications: Generic Name Dose Route Start Last Admin Trade Name Freq PRN Reason Stop Dose Admin Acetaminophen 650 mg 05/09/21 03:09 Acetaminophen 325 Mg Tab PO Q4H PRN Pain, Mild (1-3) Aspirin 81 mg 05/10/21 10:00 05/14/21 09:22 Aspirin Ec 81 Mg Tab PO 81 mg QDAY GABRIELE Administration Atorvastatin Calcium 40 mg 05/09/21 22:00 05/13/21 21:56 Atorvastatin 40 Mg Tab PO 40 mg QHS GABRIELE Administration Bisacodyl 10 mg 05/09/21 03:09 Bisacodyl 10 Mg Rect Supp [place] QDAY PRN Constipation Dextrose 0 ml 05/09/21 03:33 Dextrose 10% *Hypoglycemia IV DIRECT PRN Hypoglycemia Protocol Haloperidol Lactate 5 mg 05/12/21 17:19 05/13/21 12:47 Haloperidol Lactate 5 Mg/1 Ml Inj IV 5 mg Q6HR PRN Administration Agitation Heparin Sodium (Porcine) 5,000 unit 05/09/21 06:00 05/14/21 05:46 Heparin 5,000 Unit/1 Ml Vial SUB-Q 5,000 unit Q8HR GABRIELE Administration Sodium Chloride 500 mls @ 50 mls/hr 05/14/21 11:01 Nacl 3% IV 05/14/21 21:00 DIRECT ONE Insulin Glargine 15 units 05/12/21 22:00 05/13/21 21:56 Insulin Glargine 100 Units/Ml SUB-Q 15 units QHS GABRIELE Administration Insulin Human Lispro 0 unit 05/09/21 07:30 05/14/21 08:33 Insulin Lispro 100 Unit/Ml SUB-Q 3 unit ACHS GABRIELE Administration Protocol Insulin Human Lispro 5 unit 05/12/21 14:00 05/14/21 08:34 Insulin Lispro 100 Unit/Ml SUB-Q 5 unit TID GABRIELE Administration Labetalol HCl 10 mg 05/13/21 18:25 05/14/21 07:18 Labetalol 20 Mg/4 Ml Inj IV 10 mg Q4HR PRN Administration Hypertension Losartan Potassium 25 mg 05/14/21 10:00 05/14/21 09:22 Losartan 25 Mg Tab PO 25 mg QDAY GABRIELE Administration Magnesium Hydroxide 30 ml 05/09/21 03:09 Magnesium Hydroxide (Mom) Oral Liqd Udc PO Q4H PRN Constipation Metoclopramide HCl 10 mg 05/09/21 03:09 Metoclopramide 10 Mg Tab PO Q6H PRN Nausea And Vomiting Ondansetron HCl 4 mg 05/09/21 03:09 Ondansetron 4 Mg/2 Ml Inj IV Q8H PRN Nausea And Vomiting Potassium Chloride 40 meq 05/14/21 09:00 05/14/21 08:51 Potassium Chloride Er 20 Meq Tab PO 05/14/21 13:00 40 meq ONCE@0900 GABRIELE Administration Sodium Chloride 10 ml 05/09/21 03:09 05/10/21 21:31 Sodium Chloride 0.9% 10 Ml Flush Syringe IV 10 ml PRN PRN Administration LINE FLUSH HEART Score - HEART Score Troponin: Troponin T < 0.010 ng/mL (0.00-0.029) 05/09/21 01:28
--- NOTE | 2021-05-14 11:49 | Progress Note ---
<SANDYLIZANDROFarooq - Last Filed: 05/14/21 13:13> Assessment and Plan Assessment and plan: This is a 70-year-old male with HTN, DM mated with acute CVA Neuro: Acute CVA -Neurology and neurosurgery consulted, appreciate recommendations -CT brain on admit unremarkable -CTA brain showed branch MCA occlusion in the posterior sylvian fissure region on the left, focal area of narrowing in the right [place] GR[place], focal area of moderate to high-grade narrowing seen in the nondominant left vertebral artery -CTA neck showed narrowing in the left subclavian/axillary artery, no significant narrowing seen in the common or internal carotid arteries, atherosclerotic disease seen in the vertebral arteries with areas of moderate narrowing -05/10 CT head showed interval evolutionary changes in the CT appearance of the prominent left temporal occipital cortical infarct which is not clearly visible by CT is a large area of cortical and subcortical hypoattenuation, mass-effect with evidence of some compression of the left lateral ventricle and interval development of approximately 4 to 5 mm midline shift, no evidence of hemorrhage and prominent chronic diffuse white matter hypoattenuation and evidence of und erlying age-related cortical atrophy. -05/11 CT head showed significant edema in the left parietotemporal region and minimal portions of left occipital lobe, involvement of left posterior lateral [place] capsular region, edema has mildly progressed from prior with slightly more mass-effect and left to right midline shift (which has increased from 3 to 5 mm at the level of the septum pellucidum) however basal cisterns remain widely patent, mass-effect of the left lateral ventricle, no evidence of hydrocephalus and no definitive signs of hemorrhagic transformation, extensive white matter persists in both cerebral hemispheres. -05/12 CT head shows continued evolution of left MCA distribution infarct with stable mass-effect and left to right midline shift measuring 5 mm with no acute intracranial hemorrhage -05/13 CT head shows continued evolution of left MCA distribution infarct with mass-effect of 6 mm without acute intracranial hemorrhage -Lipid profile noted -Aspirin and Lipitor -Hemoglobin A1c 13 -S/p mannitol -hypertonic saline restarted today -Goal sodium 150, Osmo > 300 -serial sodium and serum osmolarity -Neurochecks per neurosurgery -hourly for now -Allow permissive hypertension, BP less than 180/120 for 24 hours and then BP greater than 150/80 achieved with gradual control -ST/PT/OT consult: ST cleared for pured diet with thin liquids, PT recommends home health PT, OT consult pending -CCM consulted, appreciate recommendations -Neurology spoke to [facility] on 05/10: Will consider transfer if change in mental status or neurological exam, recommended maintaining mannitol, CT brain in a.m., Keppra 250 mg IV twice daily, neurochecks every 4 hours x24 hours and every shift Cardiac: h/o HTN, HFrEF -Allow permissive hypertension, BP less than 180/120 for 24 hours and then BP greater than 150/80 achieved with gradual control -Blood pressure monitoring per protocol -Echocardiogram shows dilated cardiomyopathy, LVEF 20 to 25%, mild pulmonary hypertension -Started in losartan Respiratory: NAD -Supplemental oxygen as needed -Pulmonary hygiene -SPO2 monitoring GI: NAD -24 hours -415 mL -PPI -ST cleared for pured diet with thin liquids -BR: Colace : Hyperchloremia, metabolic acidosis, hypokalemia -Strict intake and output -Avoid nephrotoxic medications -Trend BMP -Replete K ID: NAD -Monitor WBC and temperature curve Endo: Hyperglycemia, h/o DM -Avoid hypoglycemia -SSI -Accu-Cheks AC at bedtime -Long-acting insulin, titrate as needed -Added lispro 5 units TID -Hemoglobin A1c 13 Heme: NAD -Trend CBC -Transfuse hemoglobin less than 7 -Monitor for signs of bleeding -SCDs to BLE while in bed -lovenox subq The high probability of a clinically significant, sudden or life threatening deterioration of the [neuro] system(s) required my full and direct attention, intervention and personal management. The aggregate critical care time was [90] minutes. This time is in addition to time spent performing reported procedures but includes the following: [x] Data Review and interpretation [x] Patient assessment and monitoring of vital signs [x] Documentation [x] Medication orders and management Disposition Plan: icu Total Time Spent with Patient (Minutes): 90 History Interval history: This is 70-year-old male with HTN, DM who presented to emergency department on 05/09 with AMS and strokelike symptoms, and per family was noticed to have be walking into the [place] and confused therefore EMS was called. Initial blood pressure on arrival of EMS was 150/100 and glucose was 364 and family stated the symptoms started around dinnertime earlier in the evening. Recommend emergency department included CT head which showed no acute abnormality, CTA head showed branch MCA occlusion, focal area of narrowing in the right [place], focal area of moderate to high-grade narrowing in the nondominant left vertebral artery and CTA neck showed narrowing of the left subclavian/axillary artery with arthrosclerotic disease seen in the vertebral arteries with areas of moderate narrowing and lab work was significant for hyperglycemia of 451. Patient was evaluated by teleneurologist and was scheduled for MRI brain, carotid Dopplers and echocardiogram, hemoglobin A1c and lipid profile. Patient passed bedside swallow evaluation in the ED and received aspirin. Patient was admitted to the hospital service with consults to neurology for acute CVA. Hospital course to date: 05/09: Patient was transferred to ICU from telemetry due to large CVA lesion and chance of edema cannot be excluded and started on mannitol 40 mg IV now and 25 mg 4 times daily for 3 days with hourly neuro checks and repeat CT head in the a.m. 05/10: Patient has hyponatremia, started on mannitol for 4 days per neurology, CT head pending. 05/11: Neuro status unchanged, repeat CT head obtained which showed slight worsening of shift, neurosurgery was contacted yesterday and plans to transfer patient to tertiary center was unsuccessful. Started on 3% saline with frequent lab checks. Lantus increased. [facility] Neuro[facility]urg was contacted last evening by Dr. Sierra. 05/12: Lantus adjusted, CT head without significant changes. Will obtain CT head in the a.m. This afternoon patient was hypokalemic and potassium was repleted. Given Haldol for agitation. 05/13: Patient had a repeat CT head which showed slight worsening, hypertonic sa line stopped, phosphorus repleted. 05/14: Repeat CT head this morning with slightly worsening midline shift. Hypertonic saline restarted. Potassium repleted. will add mag to am blood. 3% NS at 30 ml/hr with goal Na 150 per neurosurgery. Rena updated at bedside by Dr. Nash and myself Hospitalist Physical - Constitutional Vitals: Temp Pulse Resp BP Pulse Ox 98.4 F 71 21 156/100 98 05/14/21 09:19 05/14/21 10:01 05/14/21 10:01 05/14/21 10:01 05/14/21 10:01 General appearance: Present: no acute distress, well-nourished - EENT Eyes: Present: PERRL, EOM intact ENT: dentition normal - Neck Neck: Present: normal ROM - Respiratory Respiratory effort: normal Respiratory: bilateral: CTA - Cardiovascular Rhythm: regular Heart Sounds: Present: S1 & S2. Absent: systolic murmur, diastolic murmur - Extremities Extremities: no ischemia, pulses intact, pulses symmetrical, No edema, normal temperature, normal color Peripheral Pulses: within normal limits - Abdominal General gastrointestinal: soft, non-tender, non-distended, normal bowel sounds - Integumentary Integumentary: Present: warm, dry - Psychiatric Psychiatric: cooperative - Neurologic Neurologic: other (right sided hemineglect, aphasia) - Allied Health Allied health notes reviewed: nursing, RT, social work HEART Score - HEART Score Troponin: Troponin T < 0.010 ng/mL (0.00-0.029) 05/09/21 01:28 Results - Labs CBC & Chem 7: 05/13/21 04:22 05/14/21 04:22 Labs: Laboratory Last Values WBC 9.8 K/mm3 (4.5-11.0) 05/13/21 04:22 RBC 4.40 M/mm3 (3.65-5.03) 05/13/21 04:22 Hgb 13.7 gm/dl (11.8-15.2) 05/13/21 04:22 Hct 41.1 % (35.5-45.6) 05/13/21 04:22 MCV 93 fl (84-94) 05/13/21 04:22 MCH 31 pg (28-32) 05/13/21 04:22 MCHC 33 % (32-34) 05/13/21 04:22 RDW 12.9 % (13.2-15.2) L 05/13/21 04:22 Plt Count 133 K/mm3 (140-440) L 05/13/21 04:22 Lymph % (Auto) 17.4 % (13.4-35.0) 05/13/21 04:22 [place] % (Auto) 13.5 % (0.0-7.3) H 05/13/21 04:22 Eos % (Auto) 0.4 % (0.0-4.3) 05/13/21 04:22 Baso % (Auto) 0.9 % (0.0-1.8) 05/13/21 04:22 Lymph # (Auto) 1.7 K/mm3 (1.2-5.4) 05/13/21 04:22 [place] # (Auto) 1.3 K/mm3 (0.0-0.8) H 05/13/21 04:22 Eos # (Auto) 0.0 K/mm3 (0.0-0.4) 05/13/21 04:22 Baso # (Auto) 0.1 K/mm3 (0.0-0.1) 05/13/21 04:22 Seg Neutrophils % 67.8 % (40.0-70.0) 05/13/21 04:22 Seg Neutrophils # 6.6 K/mm3 (1.8-7.7) 05/13/21 04:22 PT 14.0 Sec. (12.2-14.9) 05/09/21 01:28 INR 0.97 (0.87-1.13) 05/09/21 01:28 APTT 27.7 Sec. (24.2-36.6) 05/09/21 01:28 Thrombin Time 16.9 Sec. (15.1-19.6) 05/09/21 01:28 VBG pH 7.484 (7.320-7.420) H 05/09/21 01:31 Sodium 141 mmol/L (137-145) 05/14/21 04:22 Potassium 3.3 mmol/L (3.6-5.0) L 05/14/21 04:22 Chloride 107.5 mmol/L (98-107) H 05/14/21 04:22 Carbon Dioxide 17 mmol/L (22-30) L 05/14/21 04:22 Anion Gap 20 mmol/L 05/14/21 04:22 BUN 4 mg/dL (9-20) L 05/14/21 04:22 Creatinine 0.7 mg/dL (0.8-1.3) L 05/14/21 04:22 Estimated GFR > 60 ml/min 05/14/21 04:22 BUN/Creatinine Ratio 6 % 05/14/21 04:22 Glucose 153 mg/dL (75-100) H 05/14/21 04:22 POC Glucose 169 mg/dL (70-105) H 05/14/21 07:59 Hemoglobin A1c 13.0 % (4-6) H 05/10/21 18:26 Osmolality 297 Mosm/kg 05/13/21 22:24 Calcium 8.3 mg/dL (8.4-10.2) L 05/14/21 04:22 Phosphorus 2.90 mg/dL (2.5-4.5) D 05/14/21 04:22 Magnesium 2.00 mg/dL (1.7-2.3) 05/13/21 04:22 Total Bilirubin 0.50 mg/dL (0.1-1.2) 05/09/21 01:28 AST 9 units/L (5-40) 05/09/21 01:28 ALT 7 units/L (7-56) 05/09/21 01:28 Alkaline Phosphatase 93 units/L (35-129) 05/09/21 01:28 Total Creatine Kinase 88 units/L (55-170) 05/09/21 01:28 CK-MB (CK-2) 2.0 ng/mL (0.0-4.0) 05/09/21 01:28 CK-MB (CK-2) Rel Index 2.2 (0-4) 05/09/21 01:28 Troponin T < 0.010 ng/mL (0.00-0.029) 05/09/21 01:28 Total Protein 6.4 g/dL (6.3-8.2) 05/09/21 01:28 Albumin 3.9 g/dL (3.9-5) 05/09/21 01:28 Albumin/Globulin Ratio 1.6 % 05/09/21 01:28 Triglycerides 123 mg/dL (2-149) 05/10/21 06:33 Cholesterol 265 mg/dL (50-199) H 05/10/21 06:33 LDL Cholesterol Direct 212 mg/dL (50-130) H 05/10/21 06:33 HDL Cholesterol 35 mg/dL (40-59) L 05/10/21 06:33 Cholesterol/HDL Ratio 7.57 % 05/10/21 06:33 Urine Color Straw (Yellow) 05/09/21 Unknown Urine Turbidity Clear (Clear) 05/09/21 Unknown Urine pH 7.0 (5.0-7.0) 05/09/21 Unknown Ur Specific [place] 1.028 (1.003-1.030) 05/09/21 Unknown Urine Protein 30 mg/dl mg/dL (Negative) 05/09/21 Unknown Urine Glucose (UA) >=500 mg/dL (Negative) 05/09/21 Unknown Urine Ketones Neg mg/dL (Negative) 05/09/21 Unknown Urine Blood Neg (Negative) 05/09/21 Unknown Urine Nitrite Neg (Negative) 05/09/21 Unknown Urine Bilirubin Neg (Negative) 05/09/21 Unknown Urine Urobilinogen < 2.0 mg/dL (<2.0) 05/09/21 Unknown Ur Leukocyte Esterase Neg (Negative) 05/09/21 Unknown Urine WBC (Auto) 1.0 /HPF (0.0-6.0) 05/09/21 Unknown Urine RBC (Auto) 2.0 /HPF (0.0-6.0) 05/09/21 Unknown Castro/IV: Voiding Method Condom Catheter Active Medications - Current Medications Current Medications: Generic Name Dose Route Start Last Admin Trade Name Freq PRN Reason Stop Dose Admin Acetaminophen 650 mg 05/09/21 03:09 Acetaminophen 325 Mg Tab PO Q4H PRN Pain, Mild (1-3) Aspirin 81 mg 05/10/21 10:00 05/14/21 09:22 Aspirin Ec 81 Mg Tab PO 81 mg QDAY GABRIELE Administration Atorvastatin Calcium 40 mg 05/09/21 22:00 05/13/21 21:56 Atorvastatin 40 Mg Tab PO 40 mg QHS GABRIELE Administration Bisacodyl 10 mg 05/09/21 03:09 Bisacodyl 10 Mg Rect Supp NJ QDAY PRN Constipation Dextrose 0 ml 05/09/21 03:33 Dextrose 10% *Hypoglycemia IV DIRECT PRN Hypoglycemia Protocol Haloperidol Lactate 5 mg 05/12/21 17:19 05/13/21 12:47 Haloperidol Lactate 5 Mg/1 Ml Inj IV 5 mg Q6HR PRN Administration Agitation Heparin Sodium (Porcine) 5,000 unit 05/09/21 06:00 05/14/21 05:46 Heparin 5,000 Unit/1 Ml Vial SUB-Q 5,000 unit Q8HR GABRIELE Administration Sodium Chloride 500 mls @ 50 mls/hr 05/14/21 12:00 Nacl 3% IV 05/14/21 21:59 DIRECT ONE Insulin Glargine 15 units 05/12/21 22:00 05/13/21 21:56 Insulin Glargine 100 Units/Ml SUB-Q 15 units QHS GABRIELE Administration Insulin Human Lispro 0 unit 05/09/21 07:30 05/14/21 08:33 Insulin Lispro 100 Unit/Ml SUB-Q 3 unit ACHS GABRIELE Administration Protocol Insulin Human Lispro 5 unit 05/12/21 14:00 05/14/21 08:34 Insulin Lispro 100 Unit/Ml SUB-Q 5 unit TID GABRIELE Administration Labetalol HCl 10 mg 05/13/21 18:25 05/14/21 07:18 Labetalol 20 Mg/4 Ml Inj IV 10 mg Q4HR PRN Administration Hypertension Losartan Potassium 25 mg 05/14/21 10:00 05/14/21 09:22 Losartan 25 Mg Tab PO 25 mg QDAY GABRIELE Administration Magnesium Hydroxide 30 ml 05/09/21 03:09 Magnesium Hydroxide (Mom) Oral Liqd Udc PO Q4H PRN Constipation Metoclopramide HCl 10 mg 05/09/21 03:09 Metoclopramide 10 Mg Tab PO Q6H PRN Nausea And Vomiting Ondansetron HCl 4 mg 05/09/21 03:09 Ondansetron 4 Mg/2 Ml Inj IV Q8H PRN Nausea And Vomiting Potassium Chloride 40 meq 05/14/21 09:00 05/14/21 08:51 Potassium Chloride Er 20 Meq Tab PO 05/14/21 13:00 40 meq ONCE@0900 GABRIELE Administration Sodium Chloride 10 ml 05/09/21 03:09 05/10/21 21:31 Sodium Chloride 0.9% 10 Ml Flush Syringe IV 10 ml PRN PRN Administration LINE FLUSH Nutrition/Malnutrition Assess - Dietary Evaluation Nutrition/Malnutrition Findings: Nutrition Notes Start: 05/09/21 13:59 Freq: Status: Active Protocol: Document 05/12/21 15:16 SHAHIDA (Rec: 05/12/21 15:41 SHAHIDA [id number]) Nutrition Notes Initial or Follow up Assessment Current Diagnosis Diabetes,Hypertension,Stroke Other Pertinent Diagnosis HFrEF, Fluent Aphasia, Metabolic Acidosis. Current Diet Pureed Diet (since D 05/09). Labs/Tests 05/12: CO2 18, Glu 279, HbA1c 13. Pertinent Medications 05/12: Insulin, others nutritionally unremarkable. Height 5 ft 11 in Weight 86.183 kg [place] Body Weight (kg) 78.18 BMI 26.4 Weight change and time frame None reported at admission. No body weight change reported in 3 days. Weight Status Overweight Subjective/Other Information RD consult for routine F/U on CHANGE ANALYST evaluation. RN note 05/10: Patient was able to feed himself breakfast and lunch. CHANGE ANALYST evaluation was not performed; will reschedule. Bedside swallow screen passed on 05/12. Percent of energy/protein needs met: Prescribed Pureed Diet provides for energy/protein needs (1,804 Kcal/77 g) during LOS. Burn Absent Trauma Absent GI Symptoms None Difficulty In Swallowing Food Allergy No Skin Integrity/Comment Assessment WNL. Current % PO Good (75-100%) Minimum of two criteria No #1 Nutrition Diagnosis Swallowing difficulty Etiology Acute CVA. As Evidenced by Signs and Symptoms Swallow screen failed, althouhg, improving. Is patient on ventilator? No Is Patient Ambulatory and/or Out of Bed No REE-([facility]-confined to bed) 1966.620 Calculation Used for Recommendations [facility] Additional Notes Protein: 1-1.2 g/Kg; 86-103 g/ day. Fluids: 1 ml/Kcal, or as per MD. Nutrition Intervention Change Diet Order: Continue Pureed Diet. Goal #1 Facilitate PO intake of meals with mechanical modification during LOS. Goal #2 Maintain body weight within +/ -3% of admission body weight during LOS. Follow-Up By: 05/16/21 Additional Comments Continue monitoring food tolerance, %PO intake of meals , and BM. <IMELDA SARMIENTO - Last Filed: 05/15/21 07:13> Assessment and Plan Assessment and plan: I saw and evaluated the patient. I agree with the findings and the plan of care as documented in the Nurse Practitioner's~note, with the following corrections and additions. Discussed extensively with Neurosurgeon and Patients son. Will continue Neuro exam Noted Expressive Aphasia persist Hospitalist Physical - Constitutional Vitals: Temp Pulse Resp BP Pulse Ox 98.8 F 58 L 13 167/100 100 05/15/21 04:00 05/15/21 06:31 05/15/21 06:00 05/15/21 06:00 05/15/21 06:00 HEART Score - HEART Score Troponin: Troponin T < 0.010 ng/mL (0.00-0.029) 05/09/21 01:28 Results - Labs CBC & Chem 7: 05/14/21 13:40 05/15/21 01:01 Labs: Laboratory Last Values WBC 9.6 K/mm3 (4.5-11.0) 05/14/21 13:40 RBC 4.11 M/mm3 (3.65-5.03) 05/14/21 13:40 Hgb 13.5 gm/dl (11.8-15.2) 05/14/21 13:40 Hct 38.0 % (35.5-45.6) 05/14/21 13:40 MCV 93 fl (84-94) 05/14/21 13:40 MCH 33 pg (28-32) H 05/14/21 13:40 MCHC 35 % (32-34) H 05/14/21 13:40 RDW 13.1 % (13.2-15.2) L 05/14/21 13:40 Plt Count 194 K/mm3 (140-440) 05/14/21 13:40 Lymph % (Auto) 17.4 % (13.4-35.0) 05/13/21 04:22 [place] % (Auto) 13.5 % (0.0-7.3) H 05/13/21 04:22 Eos % (Auto) 0.4 % (0.0-4.3) 05/13/21 04:22 Baso % (Auto) 0.9 % (0.0-1.8) 05/13/21 04:22 Lymph # (Auto) 1.7 K/mm3 (1.2-5.4) 05/13/21 04:22 [place] # (Auto) 1.3 K/mm3 (0.0-0.8) H 05/13/21 04:22 Eos # (Auto) 0.0 K/mm3 (0.0-0.4) 05/13/21 04:22 Baso # (Auto) 0.1 K/mm3 (0.0-0.1) 05/13/21 04:22 Seg Neutrophils % 67.8 % (40.0-70.0) 05/13/21 04:22 Seg Neutrophils # 6.6 K/mm3 (1.8-7.7) 05/13/21 04:22 PT 14.0 Sec. (12.2-14.9) 05/09/21 01:28 INR 0.97 (0.87-1.13) 05/09/21 01:28 APTT 27.7 Sec. (24.2-36.6) 05/09/21 01:28 Thrombin Time 16.9 Sec. (15.1-19.6) 05/09/21 01:28 VBG pH 7.484 (7.320-7.420) H 05/09/21 01:31 Sodium 141 mmol/L (137-145) 05/15/21 01:01 Potassium 3.6 mmol/L (3.6-5.0) 05/14/21 19:10 Chloride 107.5 mmol/L (98-107) H 05/14/21 04:22 Carbon Dioxide 17 mmol/L (22-30) L 05/14/21 04:22 Anion Gap 20 mmol/L 05/14/21 04:22 BUN 4 mg/dL (9-20) L 05/14/21 04:22 Creatinine 0.7 mg/dL (0.8-1.3) L 05/14/21 04:22 Estimated GFR > 60 ml/min 05/14/21 04:22 BUN/Creatinine Ratio 6 % 05/14/21 04:22 Glucose 153 mg/dL (75-100) H 05/14/21 04:22 POC Glucose 239 mg/dL (70-105) H 05/14/21 20:18 Hemoglobin A1c 13.0 % (4-6) H 05/10/21 18:26 Osmolality 301 Mosm/kg 05/15/21 01:01 Calcium 8.3 mg/dL (8.4-10.2) L 05/14/21 04:22 Phosphorus 2.90 mg/dL (2.5-4.5) D 05/14/21 04:22 Magnesium 1.80 mg/dL (1.7-2.3) 05/14/21 04:22 Total Bilirubin 0.50 mg/dL (0.1-1.2) 05/09/21 01:28 AST 9 units/L (5-40) 05/09/21 01:28 ALT 7 units/L (7-56) 05/09/21 01:28 Alkaline Phosphatase 93 units/L (35-129) 05/09/21 01:28 Total Creatine Kinase 88 units/L (55-170) 05/09/21 01:28 CK-MB (CK-2) 2.0 ng/mL (0.0-4.0) 05/09/21 01:28 CK-MB (CK-2) Rel Index 2.2 (0-4) 05/09/21 01:28 Troponin T < 0.010 ng/mL (0.00-0.029) 05/09/21 01:28 Total Protein 6.4 g/dL (6.3-8.2) 05/09/21 01:28 Albumin 3.9 g/dL (3.9-5) 05/09/21 01:28 Albumin/Globulin Ratio 1.6 % 05/09/21 01:28 Triglycerides 123 mg/dL (2-149) 05/10/21 06:33 Cholesterol 265 mg/dL (50-199) H 05/10/21 06:33 LDL Cholesterol Direct 212 mg/dL (50-130) H 05/10/21 06:33 HDL Cholesterol 35 mg/dL (40-59) L 05/10/21 06:33 Cholesterol/HDL Ratio 7.57 % 05/10/21 06:33 Urine Color Straw (Yellow) 05/09/21 Unknown Urine Turbidity Clear (Clear) 05/09/21 Unknown Urine pH 7.0 (5.0-7.0) 05/09/21 Unknown Ur Specific [place] 1.028 (1.003-1.030) 05/09/21 Unknown Urine Protein 30 mg/dl mg/dL (Negative) 05/09/21 Unknown Urine Glucose (UA) >=500 mg/dL (Negative) 05/09/21 Unknown Urine Ketones Neg mg/dL (Negative) 05/09/21 Unknown Urine Blood Neg (Negative) 05/09/21 Unknown Urine Nitrite Neg (Negative) 05/09/21 Unknown Urine Bilirubin Neg (Negative) 05/09/21 Unknown Urine Urobilinogen < 2.0 mg/dL (<2.0) 05/09/21 Unknown Ur Leukocyte Esterase Neg (Negative) 05/09/21 Unknown Urine WBC (Auto) 1.0 /HPF (0.0-6.0) 05/09/21 Unknown Urine RBC (Auto) 2.0 /HPF (0.0-6.0) 05/09/21 Unknown Castro/IV: Voiding Method Condom Catheter Active Medications - Current Medications Current Medications: Generic Name Dose Route Start Last Admin Trade Name Freq PRN Reason Stop Dose Admin Acetaminophen 650 mg 05/09/21 03:09 05/14/21 21:08 Acetaminophen 325 Mg Tab PO 650 mg Q4H PRN Administration Pain, Mild (1-3) Aspirin 81 mg 05/10/21 10:00 05/14/21 09:22 Aspirin Ec 81 Mg Tab PO 81 mg QDAY GABRIELE Administration Atorvastatin Calcium 40 mg 05/09/21 22:00 05/14/21 21:08 Atorvastatin 40 Mg Tab PO 40 mg QHS GABRIELE Administration Bisacodyl 10 mg 05/09/21 03:09 Bisacodyl 10 Mg Rect Supp NJ QDAY PRN Constipation Dextrose 0 ml 05/09/21 03:33 Dextrose 10% *Hypoglycemia IV DIRECT PRN Hypoglycemia Protocol Enoxaparin Sodium 40 mg 05/14/21 22:00 05/14/21 21:08 Enoxaparin 40 Mg/0.4 Ml Inj SUB-Q 40 mg QDAY@2200 GABRIELE Administration Protocol Haloperidol Lactate 5 mg 05/12/21 17:19 05/13/21 12:47 Haloperidol Lactate 5 Mg/1 Ml Inj IV 5 mg Q6HR PRN Administration Agitation Insulin Glargine 15 units 05/12/21 22:00 05/14/21 21:09 Insulin Glargine 100 Units/Ml SUB-Q 15 units QHS GABRIELE Administration Insulin Human Lispro 0 unit 05/09/21 07:30 05/14/21 22:58 Insulin Lispro 100 Unit/Ml SUB-Q 4 unit ACHS GABRIELE Administration Protocol Insulin Human Lispro 5 unit 05/12/21 14:00 05/14/21 20:33 Insulin Lispro 100 Unit/Ml SUB-Q 5 unit TID GABRIELE Administration Labetalol HCl 10 mg 05/13/21 18:25 05/14/21 07:18 Labetalol 20 Mg/4 Ml Inj IV 10 mg Q4HR PRN Administration Hypertension Losartan Potassium 25 mg 05/14/21 10:00 05/14/21 09:22 Losartan 25 Mg Tab PO 25 mg QDAY GABRIELE Administration Magnesium Hydroxide 30 ml 05/09/21 03:09 Magnesium Hydroxide (Mom) Oral Liqd Udc PO Q4H PRN Constipation Metoclopramide HCl 10 mg 05/09/21 03:09 Metoclopramide 10 Mg Tab PO Q6H PRN Nausea And Vomiting Ondansetron HCl 4 mg 05/09/21 03:09 Ondansetron 4 Mg/2 Ml Inj IV Q8H PRN Nausea And Vomiting Sodium Chloride 10 ml 05/09/21 03:09 05/14/21 21:10 Sodium Chloride 0.9% 10 Ml Flush Syringe IV 10 ml PRN PRN Administration LINE FLUSH Nutrition/Malnutrition Assess - Dietary Evaluation Nutrition/Malnutrition Findings: Nutrition Notes Start: 05/09/21 13:59 Freq: Status: Active Protocol: Document 05/12/21 15:16 SHAHIDA (Rec: 05/12/21 15:41 SHAHIDA [id number]) Nutrition Notes Initial or Follow up Assessment Current Diagnosis Diabetes,Hypertension,Stroke Other Pertinent Diagnosis HFrEF, Fluent Aphasia, Metabolic Acidosis. Current Diet Pureed Diet (since D 05/09). Labs/Tests 05/12: CO2 18, Glu 279, HbA1c 13. Pertinent Medications 05/12: Insulin, others nutritionally unremarkable. Height 5 ft 11 in Weight 86.183 kg [place] Body Weight (kg) 78.18 BMI 26.4 Weight change and time frame None reported at admission. No body weight change reported in 3 days. Weight Status Overweight Subjective/Other Information RD consult for routine F/U on CHANGE ANALYST evaluation. RN note 05/10: Patient was able to feed himself breakfast and lunch. CHANGE ANALYST evaluation was not performed; will reschedule. Bedside swallow screen passed on 05/12. Percent of energy/protein needs met: Prescribed Pureed Diet provides for energy/protein needs (1,804 Kcal/77 g) during LOS. Burn Absent Trauma Absent GI Symptoms None Difficulty In Swallowing Food Allergy No Skin Integrity/Comment Assessment WNL. Current % PO Good (75-100%) Minimum of two criteria No #1 Nutrition Diagnosis Swallowing difficulty Etiology Acute CVA. As Evidenced by Signs and Symptoms Swallow screen failed, althouhg, improving. Is patient on ventilator? No Is Patient Ambulatory and/or Out of Bed No REE-([facility]-confined to bed) 1966.620 Calculation Used for Recommendations [facility] Additional Notes Protein: 1-1.2 g/Kg; 86-103 g/ day. Fluids: 1 ml/Kcal, or as per MD. Nutrition Intervention Change Diet Order: Continue Pureed Diet. Goal #1 Facilitate PO intake of meals with mechanical modification during LOS. Goal #2 Maintain body weight within +/ -3% of admission body weight during LOS. Follow-Up By: 05/16/21 Additional Comments Continue monitoring food tolerance, %PO intake of meals , and BM.
[2021-05-14] MEDS ORDERED: SODIUM CHLORIDE 3% 500 ML IV ONE (12:00)
--- NOTE | 2021-05-14 12:26 | Consultation ---
History of Present Illness Consult date: 05/12/21 Reason for Consult: left MCA stroke Chief complaint: mental status changes History of present illness: Dino Bob is a 70 y/o Male that presented to [facility] a few days ago for evaluation of altered mental status. He had acute onset confusion and balance instability on the evening of 05/09/2021. He was found to have a Left posterior branch MCA occlusion with associated ischemia. He was transferred to the ICU for close monitoring. He has been clinically stable since his arrival. Repeat CT head this morning demonstrated progressive cerebral edema and MLS, cisterns remain capacious. Past History Past Medical History: diabetes, hypertension Past Surgical History: No surgical history Social history: no significant social history Family history: no significant family history Medications and Allergies Allergies Allergy/AdvReac Type Severity Reaction Status Date / Time No Known Allergies Allergy Verified 05/09/21 01:02 Active Meds: Active Medications Acetaminophen (Acetaminophen 325 Mg Tab) 650 mg PO Q4H PRN PRN Reason: Pain, Mild (1-3) Aspirin (Aspirin Ec 81 Mg Tab) 81 mg PO QDAY [facility] Last Admin: 05/14/21 09:22 Dose: 81 mg Atorvastatin Calcium (Atorvastatin 40 Mg Tab) 40 mg PO QHS [facility] Last Admin: 05/13/21 21:56 Dose: 40 mg Bisacodyl (Bisacodyl 10 Mg Rect Supp) 10 mg AL QDAY PRN PRN Reason: Constipation Dextrose (Dextrose 10% *Hypoglycemia) 0 ml IV DIRECT PRN; Protocol PRN Reason: Hypoglycemia Enoxaparin Sodium (Enoxaparin 40 Mg/0.4 Ml Inj) 40 mg SUB-Q QDAY@2200 [facility]; Protocol Haloperidol Lactate (Haloperidol Lactate 5 Mg/1 Ml Inj) 5 mg IV Q6HR PRN PRN Reason: Agitation Last Admin: 05/13/21 12:47 Dose: 5 mg Sodium Chloride (Nacl 3%) 500 mls @ 30 mls/hr IV DIRECT ONE Stop: 05/15/21 04:39 Last Admin: 05/14/21 11:59 Dose: 50 mls/hr Insulin Glargine (Insulin Glargine 100 Units/Ml) 15 units SUB-Q QHS [facility] Last Admin: 05/13/21 21:56 Dose: 15 units Insulin Human Lispro (Insulin Lispro 100 Unit/Ml) 0 unit SUB-Q ACHS [facility]; Protocol Last Admin: 05/14/21 12:11 Dose: 3 unit Insulin Human Lispro (Insulin Lispro 100 Unit/Ml) 5 unit SUB-Q TID [facility] Last Admin: 05/14/21 08:34 Dose: 5 unit Labetalol HCl (Labetalol 20 Mg/4 Ml Inj) 10 mg IV Q4HR PRN PRN Reason: Hypertension Last Admin: 05/14/21 07:18 Dose: 10 mg Losartan Potassium (Losartan 25 Mg Tab) 25 mg PO QDAY [facility] Last Admin: 05/14/21 09:22 Dose: 25 mg Magnesium Hydroxide (Magnesium Hydroxide (Mom) Oral Liqd Udc) 30 ml PO Q4H PRN PRN Reason: Constipation Metoclopramide HCl (Metoclopramide 10 Mg Tab) 10 mg PO Q6H PRN PRN Reason: Nausea And Vomiting Ondansetron HCl (Ondansetron 4 Mg/2 Ml Inj) 4 mg IV Q8H PRN PRN Reason: Nausea And Vomiting Potassium Chloride (Potassium Chloride Er 20 Meq Tab) 40 meq PO ONCE@0900 [facility] Stop: 05/14/21 13:00 Last Admin: 05/14/21 08:51 Dose: 40 meq Sodium Chloride (Sodium Chloride 0.9% 10 Ml Flush Syringe) 10 ml IV PRN PRN PRN Reason: LINE FLUSH Last Admin: 05/10/21 21:31 Dose: 10 ml Review of Systems All systems: negative (what is specified in HPI) Physical Examination - Vital Signs Vital Signs: Vital Signs Temp Pulse 98.1 F 86 05/09/21 01:22 05/09/21 01:22 - Physical Exam Narrative exam: seen and examined no acute distress lying in bed no acute distress NC/AT RRR breathing non-labored abdomen soft no cyanosis or clubbing awake, regards examiner speech unintelligible receptive aphasia CNII-XII intact moves L hemibody purposefully does not follow commands Results - Laboratory Findings CBC and BMP: 05/13/21 04:22 05/14/21 04:22 Abnormal Lab Findings: Abnormal Labs 05/09/21 05/09/21 05/09/21 01:28 01:28 01:31 Hgb Hct MCH 34 H MCHC [address] [place] % (Auto) 7.[address] [place] # (Auto) VBG pH 7.484 H Sodium 133 L Potassium Chloride 96.8 L Carbon Dioxide BUN Creatinine Glucose 451 H POC Glucose Hemoglobin A1c Calcium Phosphorus Cholesterol LDL Cholesterol Direct HDL Cholesterol 05/09/21 05/09/21 05/09/21 03:08 15:50 20:49 Hgb Hct MCH MCHC RDW Plt Count [place] % (Auto) [place] # (Auto) VBG pH Sodium Potassium Chloride Carbon Dioxide BUN Creatinine Glucose POC Glucose 376 H 387 H 230 H Hemoglobin A1c Calcium Phosphorus Cholesterol LDL Cholesterol Direct HDL Cholesterol 05/10/21 05/10/21 05/10/21 06:33 06:33 06:33 Hgb 15.5 H Hct 46.0 H D MCH MCHC RDW Plt Count [place] % (Auto) 9.[address] [place] # (Auto) VBG pH Sodium 136 L Potassium Chloride Carbon Dioxide 19 L BUN 7 L Creatinine Glucose 235 H POC Glucose Hemoglobin A1c Calcium Phosphorus Cholesterol 265 H LDL Cholesterol Direct 212 H HDL Cholesterol 35 L 05/10/21 05/10/21 05/10/21 08:11 11:40 12:54 Hgb Hct MCH MCHC RDW Plt Count [place] % (Auto) [place] # (Auto) VBG pH Sodium 130 L Potassium Chloride Carbon Dioxide BUN Creatinine Glucose POC Glucose 267 H 275 H Hemoglobin A1c Calcium Phosphorus Cholesterol LDL Cholesterol Direct HDL Cholesterol 05/10/21 05/10/21 05/10/21 16:55 18:26 18:26 Hgb Hct MCH MCHC RDW Plt Count [place] % (Auto) [place] # (Auto) VBG pH Sodium 132 L Potassium Chloride Carbon Dioxide BUN Creatinine Glucose POC Glucose 215 H Hemoglobin A1c 13.0 H Calcium Phosphorus Cholesterol LDL Cholesterol Direct HDL Cholesterol 05/10/21 05/10/21 05/11/21 21:40 23:31 04:20 Hgb Hct MCH MCHC RDW Plt Count [place] % (Auto) [place] # (Auto) VBG pH Sodium 131 L 134 L Potassium Chloride 96.2 L 97.9 L Carbon Dioxide 19 L 20 L BUN 7 L 7 L Creatinine Glucose 232 H 199 H POC Glucose 227 H Hemoglobin A1c Calcium Phosphorus Cholesterol LDL Cholesterol Direct HDL Cholesterol 05/11/21 05/11/21 05/11/21 07:28 09:22 10:56 Hgb Hct MCH MCHC RDW Plt Count [place] % (Auto) [place] # (Auto) VBG pH Sodium 134 L Potassium Chloride 96.2 L Carbon Dioxide 21 L BUN Creatinine Glucose 257 H POC Glucose 202 H 213 H Hemoglobin A1c Calcium Phosphorus Cholesterol LDL Cholesterol Direct HDL Cholesterol 05/11/21 05/11/21 05/11/21 15:51 21:10 22:52 Hgb Hct MCH MCHC RDW Plt Count [place] % (Auto) [place] # (Auto) VBG pH Sodium Potassium 3.5 L Chloride Carbon Dioxide 21 L BUN Creatinine Glucose 239 H POC Glucose 172 H 277 H Hemoglobin A1c Calcium Phosphorus Cholesterol LDL Cholesterol Direct HDL Cholesterol 05/12/21 05/12/21 05/12/21 04:12 07:40 10:02 Hgb Hct MCH MCHC 35 H RDW 12.[address] % (Auto) [place] # (Auto) VBG pH Sodium Potassium Chloride Carbon Dioxide 18 L BUN Creatinine Glucose 279 H POC Glucose 228 H Hemoglobin A1c Calcium Phosphorus Cholesterol LDL Cholesterol Direct HDL Cholesterol 05/12/21 05/12/21 05/12/21 10:57 14:39 15:58 Hgb Hct MCH MCHC RDW Plt Count [place] % (Auto) [place] # (Auto) VBG pH Sodium Potassium 3.2 L Chloride Carbon Dioxide 19 L BUN 8 L Creatinine Glucose 211 H POC Glucose 214 H 135 H Hemoglobin A1c Calcium 8.1 L Phosphorus Cholesterol LDL Cholesterol Direct HDL Cholesterol 05/12/21 05/12/21 05/12/21 18:09 21:28 22:52 Hgb Hct MCH MCHC RDW Plt Count [place] % (Auto) [place] # (Auto) VBG pH Sodium Potassium 3.2 L Chloride 108.0 H 111.2 H Carbon Dioxide 21 L 17 L BUN 7 L 6 L Creatinine Glucose 108 H 232 H POC Glucose 282 H Hemoglobin A1c Calcium 8.0 L Phosphorus Cholesterol LDL Cholesterol Direct HDL Cholesterol 05/13/21 05/13/21 05/13/21 01:51 04:22 04:22 Hgb Hct MCH MCHC RDW 12.9 L Plt Count [address] [place] % (Auto) 13.[address] [place] # (Auto) 1.3 H VBG pH Sodium Potassium Chloride 112.2 H Carbon Dioxide 18 L BUN 6 L Creatinine Glucose 128 H POC Glucose Hemoglobin A1c Calcium 8.2 L Phosphorus 1.20 L Cholesterol LDL Cholesterol Direct HDL Cholesterol 05/13/21 05/13/21 05/13/21 08:26 11:18 13:55 Hgb Hct MCH MCHC RDW Plt Count [place] % (Auto) [place] # (Auto) VBG pH Sodium Potassium Chloride 108.5 H Carbon Dioxide 18 L BUN 8 L Creatinine Glucose 246 H POC Glucose 146 H 208 H Hemoglobin A1c Calcium Phosphorus Cholesterol LDL Cholesterol Direct HDL Cholesterol 05/13/21 05/13/21 05/13/21 16:18 21:24 22:24 Hgb Hct MCH MCHC RDW Plt Count [place] % (Auto) [place] # (Auto) VBG pH Sodium Potassium Chloride 107.4 H Carbon Dioxide 17 L BUN 5 L Creatinine 0.7 L Glucose 218 H POC Glucose 195 H 224 H Hemoglobin A1c Calcium Phosphorus Cholesterol LDL Cholesterol Direct HDL Cholesterol 05/14/21 05/14/21 05/14/21 04:22 07:59 11:57 Hgb Hct MCH MCHC RDW Plt Count [place] % (Auto) [place] # (Auto) VBG pH Sodium Potassium 3.3 L Chloride 107.5 H Carbon Dioxide 17 L BUN 4 L Creatinine 0.7 L Glucose 153 H POC Glucose 169 H 189 H Hemoglobin A1c Calcium 8.3 L Phosphorus Cholesterol LDL Cholesterol Direct HDL Cholesterol Assessment and Plan Dino Bob is a 70 y/o M w/ L MCA infarct, neurologically stable -recommend medical ICP management and q1h neuro checks -please start 3% @ 30 cc/hr -repeat CT head tomorrow -HOB > 30 degrees at all times -will need PT/OT/ST -will follow
[2021-05-14 14:03] LABS: Hemoglobin 13.5 gm/dl (11.8-15.2); Mean Corpuscular HGB Conc 35 % (32-34); Mean Corpuscular Volume 93 fl (84-94); Platelet Count 194 K/mm3 (140-440); Red Blood Count 4.11 M/mm3 (3.65-5.03); Red Cell Distribution Width 13.1 % (13.2-15.2)
[2021-05-14] MEDS: ENOXAPARIN 40 MG/0.4 ML INJ SUB-Q SCH (21:08)
[2021-05-14] MEDS: INSULIN GLARGINE 100 UNITS/ML SUB-Q SCH (21:09)
--- NOTE | 2021-05-15 08:36 | Cat Scan Report ---
NONENHANCED CT SCAN OF THE HEAD: INDICATION / CLINICAL INFORMATION: 70 years Male; f/u. Left pericallosal artery territory infarction follow-up TECHNIQUE: Routine CT head without contrast. All CT scans at this location are performed using CT dos e reduction for ALARA by means of automated exposure control. COMPARISON: CT scans of the head obtained for the last one week everyday FINDINGS: BRAIN / INTRACRANIAL CONTENTS: Infarction in the inferior division of left middle cerebral artery territory has not progressed No hemorrhagic changes In yesterday CT scan, progressing [id number] midline shift is seen at the level of foramen of Monr o. This may have increased very slightly. Low-attenuation in the left caudate head has progressed. Mass effect over the left lateral ventricle from vasogenic edema that has progressed for the last 5 d ays following acute infarction; mass effect peaks in 3-5 days and begins to decrease. No hemorrhagic changes or CT findings to suggest progression of infarction seen. MRI scan would be helpful. IMPRESSION: No hemorrhagic changes; no CT findings to suggest progression of infarction However, left to right midline shift has progressed slightly Mass effect from infarction usually peaks on days 3 to 5; since the mass effect is dressing for the l ast 6 days, repeat MRI scan may be helpful Signer Name: Celeste Esquivel MD Signed: 05/15/2021 8:31 AM Workstation Name: [id number]
[2021-05-15] MEDS: INSULIN LISPRO 100 UNIT/ML SUB-Q SCH ×7 (08:58→21:31)
--- NOTE | 2021-05-15 09:14 | Progress Note ---
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[employer], focal area of moderate to high-grade narrowing seen in the nondominant left vertebral artery -CTA neck showed narrowing in the left subclavian/axillary artery, no significant narrowing seen in the common or internal carotid arteries, atherosclerotic disease seen in the vertebral arteries with areas of moderate narrowing -05/10 CT head showed interval evolutionary changes in the CT appearance of the prominent left temporal occipital cortical infarct which is not clearly visible by CT is a large area of cortical and subcortical hypoattenuation, mass-effect with evidence of some compression of the left lateral ventricle and interval development of approximately 4 to 5 mm midline shift, no evidence of hemorrhage and prominent chronic diffuse white matter hypoattenuation and evidence of underlying age-related cortical atrophy. -05/11 CT head showed significant edema in the left parietotemporal region and minimal portions of left occipital lobe, involvement of left posterior lateral canthal capsular region, edema has mildly progressed from prior with slightly more mass-effect and left to right midline shift (which has increased from 3 to 5 mm at the level of the septum pellucidum) however basal cisterns remain widely patent, mass-effect of the left lateral ventricle, no evidence of hydrocephalus and no definitive signs of hemorrhagic transformation, extensive white matter persists in both cerebral hemispheres. -05/12 CT head shows continued evolution of left MCA distribution infarct with stable mass-effect and left to right midline shift measuring 5 mm with no acute intracranial hemorrhage -05/13 CT head shows continued evolution of left MCA distribution infarct with mass-effect of 6 mm without acute intracranial hemorrhage -05/14 CT head shows subacute infarction with no progression, no hemorrhagic changes however increasing mass-effect of the left lateral ventricle with increasing [id number] midline shift from 8 mm to 10 mm and suprasellar cistern is not effaced. -05/15 CT scan shows no hemorrhagic changes, no CT findings of suggest progression of infarction, left to right midline shift has progressed slightly at the foramen of Espinosa. -Lipid profile noted -Aspirin and Lipitor -Hemoglobin A1c 13 -S/p mannitol -3% saline (05/11 x 2, 05/14, 05/15) -Goal sodium 150 -serial sodium and serum osmolarity -Neurochecks per neurosurgery -hourly for now -Allow permissive hypertension, BP less than 180/120 for 24 hours and then BP greater than 150/80 achieved with gradual control -ST/PT/OT consult: ST cleared for pured diet with thin liquids, PT recommends home health PT, OT consult pending -CCM consulted, appreciate recommendations -Neurology spoke to [facility] on 05/10: Will consider transfer if change in mental status or neurological exam, recommended maintaining mannitol, CT brain in a.m., Keppra 250 mg IV twice daily, neurochecks every 4 hours x24 hours and every shift Cardiac: h/o HTN, HFrEF -Allow permissive hypertension, BP less than 180/120 for 24 hours and then BP greater than 150/80 achieved with gradual control -Blood pressure monitoring per protocol -Echocardiogram shows dilated cardiomyopathy, LVEF 20 to 25%, mild pulmonary hypertension -Pressure regimen: Losartan, amlodipine Respiratory: NAD -Supplemental oxygen as needed -Pulmonary hygiene -SPO2 monitoring GI: NAD -24 hours -196 mL -PPI -ST cleared for pured diet with thin liquids -BR: Colace : Hyperchloremia, metabolic acidosis -Strict intake and output -Avoid nephrotoxic medications -Trend BMP -AM labs pending ID: [id number] -Monitor WBC and temperature curve Endo: Hyperglycemia, h/o DM -Avoid hypoglycemia -SSI -Accu-Cheks AC at bedtime -Long-acting insulin, titrate as needed -Hemoglobin A1c 13 Heme: NAD -Trend CBC -Transfuse hemoglobin less than 7 -Monitor for signs of bleeding -SCDs to BLE while in bed -lovenox subq The high probability of a clinically significant, sudden or life threatening deterioration of the [neuro] system(s) required my full and direct attention, intervention and personal management. The aggregate critical care time was [60] minutes. This time is in addition to time spent performing reported procedures but includes the following: [x] Data Review and interpretation [x] Patient assessment and monitoring of vital signs [x] Documentation [x] Medication orders and management Disposition Plan: icu Total Time Spent with Patient (Minutes): 60 History Interval history: This is 70-year-old male with HTN, DM who presented to emergency department on 05/09 with AMS and strokelike symptoms, and per family was noticed to have be walking into the [place] and confused therefore EMS was called. Initial blood pressure on arrival of EMS was 150/100 and glucose was 364 and family stated the symptoms started around dinnertime earlier in the evening. 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 Patient was evaluated by teleneurologist and was scheduled for MRI brain, carotid Dopplers and echocardiogram, hemoglobin A1c and lipid profile. Patient passed bedside swallow evaluation in the ED and received aspirin. Patient was admitted to the hospital service with consults to neurology for acute CVA. Hospital course to date: 05/09: Patient was transferred to ICU from telemetry due to large CVA lesion and chance of edema cannot be excluded and started on mannitol 40 mg IV now and 25 mg 4 times daily for 3 days with hourly neuro checks and repeat CT head in the a.m. 05/10: Patient has hyponatremia, started on mannitol for 4 days per neurology, CT head pending. 05/11: Neuro status unchanged, repeat CT head obtained which showed slight worsening of shift, neurosurgery was contacted yesterday and plans to transfer patient to tertiary center was unsuccessful. Started on 3% saline with frequent lab checks. Lantus increased. [facility] was contacted last evening by Dr. Sierra. 05/12: Lantus adjusted, CT head without significant changes. Will obtain CT head in the a.m. This afternoon patient was hypokalemic and potassium was repleted. Given Haldol for agitation. 05/13: Patient had a repeat CT head which showed slight worsening, hypertonic saline stopped, phosphorus repleted. 05/14: Repeat CT head this morning with slightly worsening midline shift. Hypertonic saline restarted. Potassium repleted. will add mag to am blood. 3% NS at 30 ml/hr with goal Na 150 per neurosurgery. Rena updated at bedside by Dr. Nash and myself 05/15: 3% saline reordered, CT scan this morning, no change in neuro status. still with right-sided visual deficits however patient is able to squeeze bilateral hands and still has drift to right lower extremity. Hospitalist Physical - Constitutional Vitals: Temp Pulse Resp BP Pulse Ox 98.8 F 58 L 13 167/100 100 05/15/21 04:00 05/15/21 06:31 05/15/21 06:00 05/15/21 06:00 05/15/21 08:30 General appearance: Present: no acute distress, well-nourished - EENT Eyes: Present: PERRL. Absent: EOM intact (right side visual deficits) ENT: clear oral mucosa, dentition normal - Neck Neck: Present: normal ROM - Respiratory Respiratory effort: normal Respiratory: bilateral: CTA - Cardiovascular Rhythm: regular Heart Sounds: Present: S1 & S2. Absent: systolic murmur, diastolic murmur - Extremities Extremities: no ischemia, pulses intact, pulses symmetrical, No edema, normal temperature, normal color Peripheral Pulses: within normal limits - Abdominal General gastrointestinal: soft, non-tender, non-distended, normal bowel sounds - Integumentary Integumentary: Present: warm, dry - Psychiatric Psychiatric: cooperative - Neurologic Neurologic: focal deficits, other (right sided visual deficits, right lower extremity drift) - Allied Health Allied health notes reviewed: nursing HEART Score - HEART Score Troponin: Troponin T < 0.010 ng/mL (0.00-0.029) 05/09/21 01:28 Results - Labs CBC & Chem 7: 05/14/21 13:40 05/15/21 01:01 Labs: Laboratory Last Values WBC 9.6 K/mm3 (4.5-11.0) 05/14/21 13:40 RBC 4.11 M/mm3 (3.65-5.03) 05/14/21 13:40 Hgb 13.5 gm/dl (11.8-15.2) 05/14/21 13:40 Hct 38.0 % (35.5-45.6) 05/14/21 13:40 MCV 93 fl (84-94) 05/14/21 13:40 MCH 33 pg (28-32) H 05/14/21 13:40 MCHC 35 % (32-34) H 05/14/21 13:40 RDW 13.1 % (13.2-15.2) L 05/14/21 13:40 Plt Count 194 K/mm3 (140-440) 05/14/21 13:40 Lymph % (Auto) 17.4 % (13.4-35.0) 05/13/21 04:22 Pepin % (Auto) 13.5 % (0.0-7.3) H 05/13/21 04:22 Eos % (Auto) 0.4 % (0.0-4.3) 05/13/21 04:22 Baso % (Auto) 0.9 % (0.0-1.8) 05/13/21 04:22 Lymph # (Auto) 1.7 K/mm3 (1.2-5.4) 05/13/21 04:22 Pepin # (Auto) 1.3 K/mm3 (0.0-0.8) H 05/13/21 04:22 Eos # (Auto) 0.0 K/mm3 (0.0-0.4) 05/13/21 04:22 Baso # (Auto) 0.1 K/mm3 (0.0-0.1) 05/13/21 04:22 Seg Neutrophils % 67.8 % (40.0-70.0) 05/13/21 04:22 Seg Neutrophils # 6.6 K/mm3 (1.8-7.7) 05/13/21 04:22 PT 14.0 Sec. (12.2-14.9) 05/09/21 01:28 INR 0.97 (0.87-1.13) 05/09/21 01:28 APTT 27.7 Sec. (24.2-36.6) 05/09/21 01:28 Thrombin Time 16.9 Sec. (15.1-19.6) 05/09/21 01:28 VBG pH 7.484 (7.320-7.420) H 05/09/21 01:31 Sodium 141 mmol/L (137-145) 05/15/21 01:01 Potassium 3.6 mmol/L (3.6-5.0) 05/14/21 19:10 Chloride 107.5 mmol/L (98-107) H 05/14/21 04:22 Carbon Dioxide 17 mmol/L (22-30) L 05/14/21 04:22 Anion Gap 20 mmol/L 05/14/21 04:22 BUN 4 mg/dL (9-20) L 05/14/21 04:22 Creatinine 0.7 mg/dL (0.8-1.3) L 05/14/21 04:22 Estimated GFR > 60 ml/min 05/14/21 04:22 BUN/Creatinine Ratio 6 % 05/14/21 04:22 Glucose 153 mg/dL (75-100) H 05/14/21 04:22 POC Glucose 72 mg/dL (70-105) 05/15/21 08:22 Hemoglobin A1c 13.0 % (4-6) H 05/10/21 18:26 Osmolality 301 Mosm/kg 05/15/21 01:01 Calcium 8.3 mg/dL (8.4-10.2) L 05/14/21 04:22 Phosphorus 2.90 mg/dL (2.5-4.5) D 05/14/21 04:22 Magnesium 1.80 mg/dL (1.7-2.3) 05/14/21 04:22 Total Bilirubin 0.50 mg/dL (0.1-1.2) 05/09/21 01:28 AST 9 units/L (5-40) 05/09/21 01:28 ALT 7 units/L (7-56) 05/09/21 01:28 Alkaline Phosphatase 93 units/L (35-129) 05/09/21 01:28 Total Creatine Kinase 88 units/L (55-170) 05/09/21 01:28 CK-MB (CK-2) 2.0 ng/mL (0.0-4.0) 05/09/21 01:28 CK-MB (CK-2) Rel Index 2.2 (0-4) 05/09/21 01:28 Troponin T < 0.010 ng/mL (0.00-0.029) 05/09/21 01:28 Total Protein 6.4 g/dL (6.3-8.2) 05/09/21 01:28 Albumin 3.9 g/dL (3.9-5) 05/09/21 01:28 Albumin/Globulin Ratio 1.6 % 05/09/21 01:28 Triglycerides 123 mg/dL (2-149) 05/10/21 06:33 Cholesterol 265 mg/dL (50-199) H 05/10/21 06:33 LDL Cholesterol Direct 212 mg/dL (50-130) H 05/10/21 06:33 HDL Cholesterol 35 mg/dL (40-59) L 05/10/21 06:33 Cholesterol/HDL Ratio 7.57 % 05/10/21 06:33 Urine Color Straw (Yellow) 05/09/21 Unknown Urine Turbidity Clear (Clear) 05/09/21 Unknown Urine pH 7.0 (5.0-7.0) 05/09/21 Unknown Ur Specific Alexander 1.028 (1.003-1.030) 05/09/21 Unknown Urine Protein 30 mg/dl mg/dL (Negative) 05/09/21 Unknown Urine Glucose (UA) >=500 mg/dL (Negative) 05/09/21 Unknown Urine Ketones Neg mg/dL (Negative) 05/09/21 Unknown Urine Blood Neg (Negative) 05/09/21 Unknown Urine Nitrite Neg (Negative) 05/09/21 Unknown Urine Bilirubin Neg (Negative) 05/09/21 Unknown Urine Urobilinogen < 2.0 mg/dL (<2.0) 05/09/21 Unknown Ur Leukocyte Esterase Neg (Negative) 05/09/21 Unknown Urine WBC (Auto) 1.0 /HPF (0.0-6.0) 05/09/21 Unknown Urine RBC (Auto) 2.0 /HPF (0.0-6.0) 05/09/21 Unknown Castro/IV: Voiding Method Condom Catheter Active Medications - Current Medications Current Medications: Generic Name Dose Route Start Last Admin Trade Name Freq PRN Reason Stop Dose Admin Acetaminophen 650 mg 05/09/21 03:09 05/14/21 21:08 Acetaminophen 325 Mg Tab PO 650 mg Q4H PRN Administration Pain, Mild (1-3) Amlodipine Besylate 5 mg 05/15/21 10:00 Amlodipine 5 Mg Tab PO QDAY GABRIELE Aspirin 81 mg 05/10/21 10:00 05/14/21 09:22 Aspirin Ec 81 Mg Tab PO 81 mg QDAY GABRIELE Administration Atorvastatin Calcium 40 mg 05/09/21 22:00 05/14/21 21:08 Atorvastatin 40 Mg Tab PO 40 mg QHS GABRIELE Administration Bisacodyl 10 mg 05/09/21 03:09 Bisacodyl 10 Mg Rect Supp CO QDAY PRN Constipation Dextrose 0 ml 05/09/21 03:33 Dextrose 10% *Hypoglycemia IV DIRECT PRN Hypoglycemia Protocol Enoxaparin Sodium 40 mg 05/14/21 22:00 05/14/21 21:08 Enoxaparin 40 Mg/0.4 Ml Inj SUB-Q 40 mg QDAY@2200 GABRIELE Administration Protocol Haloperidol Lactate 5 mg 05/12/21 17:19 05/13/21 12:47 Haloperidol Lactate 5 Mg/1 Ml Inj IV 5 mg Q6HR PRN Administration Agitation Sodium Chloride 500 mls @ 30 mls/hr 05/15/21 09:00 Nacl 3% IV DIRECT GABRIELE Insulin Glargine 10 units 05/15/21 22:00 Insulin Glargine 100 Units/Ml SUB-Q QHS [facility] Insulin Human Lispro 0 unit 05/09/21 07:30 05/15/21 08:58 Insulin Lispro 100 Unit/Ml SUB-Q Not Given ACHS [facility] Protocol Insulin Human Lispro 5 unit 05/12/21 14:00 05/15/21 08:58 Insulin Lispro 100 Unit/Ml SUB-Q Not Given TID [facility] Labetalol HCl 10 mg 05/13/21 18:25 05/14/21 07:18 Labetalol 20 Mg/4 Ml Inj IV 10 mg Q4HR PRN Administration Hypertension Losartan Potassium 50 mg 05/15/21 10:00 Losartan 50 Mg Tab PO QDAY GABRIELE Magnesium Hydroxide 30 ml 05/09/21 03:09 Magnesium Hydroxide (Mom) Oral Liqd Udc PO Q4H PRN Constipation Metoclopramide HCl 10 mg 05/09/21 03:09 Metoclopramide 10 Mg Tab PO Q6H PRN Nausea And Vomiting Ondansetron HCl 4 mg 05/09/21 03:09 Ondansetron 4 Mg/2 Ml Inj IV Q8H PRN Nausea And Vomiting Sodium Chloride 10 ml 05/09/21 03:09 05/14/21 21:10 Sodium Chloride 0.9% 10 Ml Flush Syringe IV 10 ml PRN PRN Administration LINE FLUSH Nutrition/Malnutrition Assess - Dietary Evaluation Nutrition/Malnutrition Findings: Nutrition Notes Start: 05/09/21 13:59 Freq: Status: Active Protocol: Document 05/12/21 15:16 SHAHIDA (Rec: 05/12/21 15:41 SHAHIDA [id number]) Nutrition Notes Initial or Follow up Assessment Current Diagnosis Diabetes,Hypertension,Stroke Other Pertinent Diagnosis HFrEF, Fluent Aphasia, Metabolic Acidosis. Current Diet Pureed Diet (since D 05/09). Labs/Tests 05/12: CO2 18, Glu 279, HbA1c 13. Pertinent Medications 05/12: Insulin, others nutritionally unremarkable. Height 5 ft 11 in Weight 86.183 kg [place] Body Weight (kg) 78.18 BMI 26.4 Weight change and time frame None reported at admission. No body weight change reported in 3 days. Weight Status Overweight Subjective/Other Information RD consult for routine F/U on MEDICAL AUTHORIZATION SPECIALIST evaluation. RN note 05/10: Patient was able to feed himself breakfast and lunch. MEDICAL AUTHORIZATION SPECIALIST evaluation was not performed; will reschedule. Bedside swallow screen passed on 05/12. Percent of energy/protein needs met: Prescribed Pureed Diet provides for energy/protein needs (1,804 Kcal/77 g) during LOS. Burn Absent Trauma Absent GI Symptoms None Difficulty In Swallowing Food Allergy No Skin Integrity/Comment Assessment WNL. Current % PO Good (75-100%) Minimum of two criteria No #1 Nutrition Diagnosis Swallowing difficulty Etiology Acute CVA. As Evidenced by Signs and Symptoms Swallow screen failed, althouhg, improving. Is patient on ventilator? No Is Patient Ambulatory and/or Out of Bed No REE-([facility]-confined to bed) [phone] Calculation Used for Recommendations [facility] Additional Notes Protein: 1-1.2 g/Kg; 86-103 g/ day. Fluids: 1 ml/Kcal, or as per MD. Nutrition Intervention Change Diet Order: Continue Pureed Diet. Goal #1 Facilitate PO intake of meals with mechanical modification during LOS. Goal #2 Maintain body weight within +/ -3% of admission body weight during LOS. Follow-Up By: 05/16/21 Additional Comments Continue monitoring food tolerance, %PO intake of meals , and BM. <IMELDA SARMIENOT E - Last Filed: 05/15/21 15:44> Assessment and Plan Assessment and plan: I saw and evaluated the patient. I agree with the findings and the plan of care as documented in the Nurse Practitioner's~note, with the following corrections and additions. Hospitalist Physical - Constitutional Vitals: Temp Pulse Resp BP Pulse Ox 98.8 F 67 16 170/97 99 05/15/21 04:00 05/15/21 12:39 05/15/21 12:00 05/15/21 12:39 05/15/21 12:00 HEART Score - HEART Score Troponin: Troponin T < 0.010 ng/mL (0.00-0.029) 05/09/21 01:28 Results - Labs CBC & Chem 7: 05/14/21 13:40 05/15/21 13:45 Labs: Laboratory Last Values WBC 9.6 K/mm3 (4.5-11.0) 05/14/21 13:40 RBC 4.11 M/mm3 (3.65-5.03) 05/14/21 13:40 Hgb 13.5 gm/dl (11.8-15.2) 05/14/21 13:40 Hct 38.0 % (35.5-45.6) 05/14/21 13:40 MCV 93 fl (84-94) 05/14/21 13:40 MCH 33 pg (28-32) H 05/14/21 13:40 MCHC 35 % (32-34) H 05/14/21 13:40 RDW 13.1 % (13.2-15.2) L 05/14/21 13:40 Plt Count 194 K/mm3 (140-440) 05/14/21 13:40 Lymph % (Auto) 17.4 % (13.4-35.0) 05/13/21 04:22 Pepin % (Auto) 13.5 % (0.0-7.3) H 05/13/21 04:22 Eos % (Auto) 0.4 % (0.0-4.3) 05/13/21 04:22 Baso % (Auto) 0.9 % (0.0-1.8) 05/13/21 04:22 Lymph # (Auto) 1.7 K/mm3 (1.2-5.4) 05/13/21 04:22 Pepin # (Auto) 1.3 K/mm3 (0.0-0.8) H 05/13/21 04:22 Eos # (Auto) 0.0 K/mm3 (0.0-0.4) 05/13/21 04:22 Baso # (Auto) 0.1 K/mm3 (0.0-0.1) 05/13/21 04:22 Seg Neutrophils % 67.8 % (40.0-70.0) 05/13/21 04:22 Seg Neutrophils # 6.6 K/mm3 (1.8-7.7) 05/13/21 04:22 PT 14.0 Sec. (12.2-14.9) 05/09/21 01:28 INR 0.97 (0.87-1.13) 05/09/21 01:28 APTT 27.7 Sec. (24.2-36.6) 05/09/21 01:28 Thrombin Time 16.9 Sec. (15.1-19.6) 05/09/21 01:28 VBG pH 7.484 (7.320-7.420) H 05/09/21 01:31 Sodium 141 mmol/L (137-145) 05/15/21 13:45 Potassium 3.8 mmol/L (3.6-5.0) 05/15/21 10:14 Chloride 109.2 mmol/L (98-107) H 05/15/21 10:14 Carbon Dioxide 20 mmol/L (22-30) L 05/15/21 10:14 Anion Gap 18 mmol/L 05/15/21 10:14 BUN 5 mg/dL (9-20) L 05/15/21 10:14 Creatinine 0.7 mg/dL (0.8-1.3) L 05/15/21 10:14 Estimated GFR > 60 ml/min 05/15/21 10:14 BUN/Creatinine Ratio 7 % 05/15/21 10:14 Glucose 212 mg/dL (75-100) H 05/15/21 10:14 POC Glucose 206 mg/dL (70-105) H 05/15/21 12:30 Hemoglobin A1c 13.0 % (4-6) H 05/10/21 18:26 Osmolality 301 Mosm/kg 05/15/21 01:01 Calcium 9.1 mg/dL (8.4-10.2) 05/15/21 10:14 Phosphorus 2.90 mg/dL (2.5-4.5) D 05/14/21 04:22 Magnesium 1.80 mg/dL (1.7-2.3) 05/14/21 04:22 Total Bilirubin 0.50 mg/dL (0.1-1.2) 05/09/21 01:28 AST 9 units/L (5-40) 05/09/21 01:28 ALT 7 units/L (7-56) 05/09/21 01:28 Alkaline Phosphatase 93 units/L (35-129) 05/09/21 01:28 Total Creatine Kinase 88 units/L (55-170) 05/09/21 01:28 CK-MB (CK-2) 2.0 ng/mL (0.0-4.0) 05/09/21 01:28 CK-MB (CK-2) Rel Index 2.2 (0-4) 05/09/21 01:28 Troponin T < 0.010 ng/mL (0.00-0.029) 05/09/21 01:28 Total Protein 6.4 g/dL (6.3-8.2) 05/09/21 01:28 Albumin 3.9 g/dL (3.9-5) 05/09/21 01:28 Albumin/Globulin Ratio 1.6 % 05/09/21 01:28 Triglycerides 123 mg/dL (2-149) 05/10/21 06:33 Cholesterol 265 mg/dL (50-199) H 05/10/21 06:33 LDL Cholesterol Direct 212 mg/dL (50-130) H 05/10/21 06:33 HDL Cholesterol 35 mg/dL (40-59) L 05/10/21 06:33 Cholesterol/HDL Ratio 7.57 % 05/10/21 06:33 Urine Color Straw (Yellow) 05/09/21 Unknown Urine Turbidity Clear (Clear) 05/09/21 Unknown Urine pH 7.0 (5.0-7.0) 05/09/21 Unknown Ur Specific Alexander 1.028 (1.003-1.030) 05/09/21 Unknown Urine Protein 30 mg/dl mg/dL (Negative) 05/09/21 Unknown Urine Glucose (UA) >=500 mg/dL (Negative) 05/09/21 Unknown Urine Ketones Neg mg/dL (Negative) 05/09/21 Unknown Urine Blood Neg (Negative) 05/09/21 Unknown Urine Nitrite Neg (Negative) 05/09/21 Unknown Urine Bilirubin Neg (Negative) 05/09/21 Unknown Urine Urobilinogen < 2.0 mg/dL (<2.0) 05/09/21 Unknown Ur Leukocyte Esterase Neg (Negative) 05/09/21 Unknown Urine WBC (Auto) 1.0 /HPF (0.0-6.0) 05/09/21 Unknown Urine RBC (Auto) 2.0 /HPF (0.0-6.0) 05/09/21 Unknown Castro/IV: Voiding Method Condom Catheter Active Medications - Current Medications Current Medications: Generic Name Dose Route Start Last Admin Trade Name Freq PRN Reason Stop Dose Admin Acetaminophen 650 mg 05/09/21 03:09 05/14/21 21:08 Acetaminophen 325 Mg Tab PO 650 mg Q4H PRN Administration Pain, Mild (1-3) Amlodipine Besylate 5 mg 05/15/21 10:00 05/15/21 10:28 Amlodipine 5 Mg Tab PO 5 mg QDAY GABRIELE Administration Aspirin 81 mg 05/10/21 10:00 05/15/21 10:27 Aspirin Ec 81 Mg Tab PO 81 mg QDAY GABRIELE Administration Atorvastatin Calcium 40 mg 05/09/21 22:00 05/14/21 21:08 Atorvastatin 40 Mg Tab PO 40 mg QHS GABRIELE Administration Bisacodyl 10 mg 05/09/21 03:09 Bisacodyl 10 Mg Rect Supp CO QDAY PRN Constipation Dextrose 0 ml 05/09/21 03:33 Dextrose 10% *Hypoglycemia IV DIRECT PRN Hypoglycemia Protocol Enoxaparin Sodium 40 mg 05/14/21 22:00 05/14/21 21:08 Enoxaparin 40 Mg/0.4 Ml Inj SUB-Q 40 mg QDAY@2200 GABRIELE Administration Protocol Haloperidol Lactate 5 mg 05/12/21 17:19 05/13/21 12:47 Haloperidol Lactate 5 Mg/1 Ml Inj IV 5 mg Q6HR PRN Administration Agitation Sodium Chloride 500 mls @ 30 mls/hr 05/15/21 09:00 05/15/21 10:30 Nacl 3% IV 30 mls/hr DIRECT GABRIELE Administration Insulin Glargine 10 units 05/15/21 22:00 Insulin Glargine 100 Units/Ml SUB-Q QHS GABRIELE Insulin Human Lispro 0 unit 05/09/21 07:30 05/15/21 12:30 Insulin Lispro 100 Unit/Ml SUB-Q 4 unit ACHS GABRIELE Administration Protocol Insulin Human Lispro 5 unit 05/12/21 14:00 05/15/21 08:58 Insulin Lispro 100 Unit/Ml SUB-Q Not Given TID [facility] Labetalol HCl 10 mg 05/13/21 18:25 05/15/21 12:39 Labetalol 20 Mg/4 Ml Inj IV 10 mg Q4HR PRN Administration Hypertension Losartan Potassium 50 mg 05/15/21 10:00 05/15/21 10:27 Losartan 50 Mg Tab PO 50 mg QDAY GABRIELE Administration Magnesium Hydroxide 30 ml 05/09/21 03:09 Magnesium Hydroxide (Mom) Oral Liqd Udc PO Q4H PRN Constipation Metoclopramide HCl 10 mg 05/09/21 03:09 Metoclopramide 10 Mg Tab PO Q6H PRN Nausea And Vomiting Ondansetron HCl 4 mg 05/09/21 03:09 Ondansetron 4 Mg/2 Ml Inj IV Q8H PRN Nausea And Vomiting Sodium Chloride 10 ml 05/09/21 03:09 05/14/21 21:10 Sodium Chloride 0.9% 10 Ml Flush Syringe IV 10 ml PRN PRN Administration LINE FLUSH Nutrition/Malnutrition Assess - Dietary Evaluation Nutrition/Malnutrition Findings: Nutrition Notes Start: 05/09/21 13:59 Freq: Status: Active Protocol: Document 05/12/21 15:16 SHAHIDA (Rec: 05/12/21 15:41 SHAHIDA [id number]) Nutrition Notes Initial or Follow up Assessment Current Diagnosis Diabetes,Hypertension,Stroke Other Pertinent Diagnosis HFrEF, Fluent Aphasia, Metabolic Acidosis. Current Diet Pureed Diet (since D 05/09). Labs/Tests 05/12: CO2 18, Glu 279, HbA1c 13. Pertinent Medications 05/12: Insulin, others nutritionally unremarkable. Height 5 ft 11 in Weight 86.183 kg [place] Body Weight (kg) 78.18 BMI 26.4 Weight change and time frame None reported at admission. No body weight change reported in 3 days. Weight Status Overweight Subjective/Other Information RD consult for routine F/U on MEDICAL AUTHORIZATION SPECIALIST evaluation. RN note 05/10: Patient was able to feed himself breakfast and lunch. MEDICAL AUTHORIZATION SPECIALIST evaluation was not performed; will reschedule. Bedside swallow screen passed on 05/12. Percent of energy/protein needs met: Prescribed Pureed Diet provides for energy/protein needs (1,804 Kcal/77 g) during LOS. Burn Absent Trauma Absent GI Symptoms None Difficulty In Swallowing Food Allergy No Skin Integrity/Comment Assessment WNL. Current % PO Good (75-100%) Minimum of two criteria No #1 Nutrition Diagnosis Swallowing difficulty Etiology Acute CVA. As Evidenced by Signs and Symptoms Swallow screen failed, althouhg, improving. Is patient on ventilator? No Is Patient Ambulatory and/or Out of Bed No REE-([facility]-confined to bed) 1966.620 Calculation Used for Recommendations [facility] Additional Notes Protein: 1-1.2 g/Kg; 86-103 g/ day. Fluids: 1 ml/Kcal, or as per MD. Nutrition Intervention Change Diet Order: Continue Pureed Diet. Goal #1 Facilitate PO intake of meals with mechanical modification during LOS. Goal #2 Maintain body weight within +/ -3% of admission body weight during LOS. Follow-Up By: 05/16/21 Additional Comments Continue monitoring food tolerance, %PO intake of meals , and BM.
[2021-05-15] MEDS: ASPIRIN EC 81 MG TAB PO SCH (10:27)
[2021-05-15] MEDS: LOSARTAN 50 MG TAB PO SCH (10:27)
[2021-05-15] MEDS: amLODIPine 5 MG TAB PO SCH (10:28)
[2021-05-15] MEDS: SODIUM CHLORIDE 3% 500 ML IV SCH (10:30)
--- NOTE | 2021-05-15 11:04 | Progress Note ---
Assessment and Plan 70 y/o male with large stroke 05/15/21: Rads suggest MRI so ordered changed. Follow up neurology and neurosurgery recs. Not sure where they want blood pressure to be. Guarded prognosis. 05/14/21: Neurology not available in person on the weekend, only tele. Discussed with [facility], they may consider tele consult to neuro. Continue neuro checks. Guarded prognosis. 05/13/21: Neurology wants to continue hypertonic saline. Called and asked about future plans and they referred me to neurosurgery. Given need for hypertonic saline, will keep in ICU. 05/12/21: Follow up neurology recs. Continue hypertonic saline as per neurology. 05/11/21: Will ask neurosurgery to see patient as there are no available ICU beds in the city. Will speak with neurology about stopping mannitol and asking if they want hypertonic saline given CT reports from this am. Keppra not started on yesterday, will ask if this is still needed. Suggest continue q4 hour neuro checks and follow neurosurgery and neurology recs for today. Continue ICU monitoring. 1. Mannitol with monitoring 2. Check Na and serum osms frequently 3. Per Neuro only needs q shift neuro checks 4. BP control 5. need to obtain home medication list and restart home meds 6. Guarded prognosis. Subjective Date of service: 05/15/21 Principal diagnosis: stable clinicaly Interval history: Still with aphasia, and emotional status is labile. BP elevated as well. Neurosurgery requested patient be place on 3% but this was already going. Also suggested repeat CT today and q1 hour neuro checks. Objective - Constitutional Vitals: Vital Signs - 12hr 05/14/21 05/15/21 05/15/21 23:34 00:00 01:00 Temperature 98.3 F Pulse Rate 59 L 78 52 L Pulse Rate [ 78 From Monitor] Respiratory 13 22 16 Rate Blood Pressure 138/82 138/82 138/88 O2 Sat by Pulse 97 98 99 Oximetry 05/15/21 05/15/21 05/15/21 02:00 03:00 04:00 Temperature 98.8 F Pulse Rate 66 61 65 Pulse Rate [ From Monitor] Respiratory 19 19 21 Rate Blood Pressure 138/88 160/97 160/92 O2 Sat by Pulse 98 99 98 Oximetry 05/15/21 05/15/21 05/15/21 04:38 05:00 05:50 Temperature Pulse Rate 65 62 Pulse Rate [ From Monitor] Respiratory 18 20 Rate Blood Pressure 165/89 O2 Sat by Pulse 99 100 Oximetry 05/15/21 05/15/21 05/15/21 06:00 06:31 08:30 Temperature Pulse Rate 58 L 58 L Pulse Rate [ From Monitor] Respiratory 13 Rate Blood Pressure 167/100 O2 Sat by Pulse 100 100 Oximetry 05/15/21 05/15/21 10:27 10:28 Temperature Pulse Rate 75 86 Pulse Rate [ From Monitor] Respiratory Rate Blood Pressure 163/93 163/93 O2 Sat by Pulse Oximetry - Labs CBC & Chem 7: 05/14/21 13:40 05/15/21 10:14 Labs: Abnormal lab results 05/14/21 05/14/21 05/14/21 Range/Units 11:57 13:40 17:15 MCH 33 H (28-32) pg MCHC 35 H (32-34) % RDW 13.1 L (13.2-15.2) % POC Glucose 189 H 240 H (70-105) mg/dL 05/14/21 Range/Units 20:18 MCH (28-32) pg MCHC (32-34) % RDW (13.2-15.2) % POC Glucose 239 H (70-105) mg/dL Medications & Allergies - Medications Allergies/Adverse Reactions: Allergies No Known Allergies Allergy (Verified 05/09/21 01:02) Home Medications: Home Medications Medication Instructions Recorded Confirmed Last Taken Type Unobtainable 05/14/21 05/14/21 Unknown History Active Medications: Generic Name Dose Route Start Last Admin Trade Name Freq PRN Reason Stop Dose Admin Acetaminophen 650 mg 05/09/21 03:09 05/14/21 21:08 Acetaminophen 325 Mg Tab PO 650 mg Q4H PRN Administration Pain, Mild (1-3) Amlodipine Besylate 5 mg 05/15/21 10:00 05/15/21 10:28 Amlodipine 5 Mg Tab PO 5 mg QDAY GABRIELE Administration Aspirin 81 mg 05/10/21 10:00 05/15/21 10:27 Aspirin Ec 81 Mg Tab PO 81 mg QDAY GABRIELE Administration Atorvastatin Calcium 40 mg 05/09/21 22:00 05/14/21 21:08 Atorvastatin 40 Mg Tab PO 40 mg QHS GABRIELE Administration Bisacodyl 10 mg 05/09/21 03:09 Bisacodyl [address] QDAY PRN Constipation Dextrose 0 ml 05/09/21 03:33 Dextrose 10% *Hypoglycemia IV DIRECT PRN Hypoglycemia Protocol Enoxaparin Sodium 40 mg 05/14/21 22:00 05/14/21 21:08 Enoxaparin 40 Mg/0.4 Ml Inj SUB-Q 40 mg QDAY@2200 GABRIELE Administration Protocol Haloperidol Lactate 5 mg 05/12/21 17:19 05/13/21 12:47 Haloperidol Lactate 5 Mg/1 Ml Inj IV 5 mg Q6HR PRN Administration Agitation Sodium Chloride 500 mls @ 30 mls/hr 05/15/21 09:00 05/15/21 10:30 Nacl 3% IV 30 mls/hr DIRECT GABRIELE Administration Insulin Glargine 10 units 05/15/21 22:00 Insulin Glargine 100 Units/Ml SUB-Q QHS [facility]–1983 Insulin Human Lispro 0 unit 05/09/21 07:30 05/15/21 08:58 Insulin Lispro 100 Unit/Ml SUB-Q Not Given ACHS [facility]–1983 Protocol Insulin Human Lispro 5 unit 05/12/21 14:00 05/15/21 08:58 Insulin Lispro 100 Unit/Ml SUB-Q Not Given TID [facility]–1983 Labetalol HCl 10 mg 05/13/21 18:25 05/14/21 07:18 Labetalol 20 Mg/4 Ml Inj IV 10 mg Q4HR PRN Administration Hypertension Losartan Potassium 50 mg 05/15/21 10:00 05/15/21 10:27 Losartan 50 Mg Tab PO 50 mg QDAY GABRIELE Administration Magnesium Hydroxide 30 ml 05/09/21 03:09 Magnesium Hydroxide (Mom) Oral Liqd Udc PO Q4H PRN Constipation Metoclopramide HCl 10 mg 05/09/21 03:09 Metoclopramide 10 Mg Tab PO Q6H PRN Nausea And Vomiting Ondansetron HCl 4 mg 05/09/21 03:09 Ondansetron 4 Mg/2 Ml Inj IV Q8H PRN Nausea And Vomiting Sodium Chloride 10 ml 05/09/21 03:09 05/14/21 21:10 Sodium Chloride 0.9% 10 Ml Flush Syringe IV 10 ml PRN PRN Administration LINE FLUSH HEART Score - HEART Score Troponin: Troponin T < 0.010 ng/mL (0.00-0.029) 05/09/21 01:28
[2021-05-15 11:24] LABS: BUN/Creatinine Ratio 7; Blood Urea Nitrogen 5 mg/dL (9-20); Calcium 9.1 mg/dL (8.4-10.2); Hemolysis Index 0
[2021-05-15] MEDS: INSULIN GLARGINE 100 UNITS/ML SUB-Q SCH (21:32)
[2021-05-15] MEDS: ENOXAPARIN 40 MG/0.4 ML INJ SUB-Q SCH (21:33)
[2021-05-16] MEDS: SODIUM CHLORIDE 3% 500 ML IV SCH ×2 (02:19→21:14)
[2021-05-16 06:26] LABS: Hematocrit 40.9 % (35.5-45.6); Hemoglobin 14.2 gm/dl (11.8-15.2); Mean Corpuscular HGB Conc 35 % (32-34); Mean Corpuscular Volume 93 fl (84-94); Platelet Count 226 K/mm3 (140-440); Red Blood Count 4.41 M/mm3 (3.65-5.03); Red Cell Distribution Width 13.2 % (13.2-15.2)
[2021-05-16 06:42] LABS: BUN/Creatinine Ratio 5; Blood Urea Nitrogen 4 mg/dL (9-20); Calcium 9.2 mg/dL (8.4-10.2); Hemolysis Index 1
[2021-05-16] MEDS ORDERED: MAGNESIUM SULFATE 4 GM/100 ML BAG IV SCH (08:00)
[2021-05-16] MEDS: INSULIN LISPRO 100 UNIT/ML SUB-Q SCH ×7 (08:30→21:16)
[2021-05-16] MEDS: amLODIPine 5 MG TAB PO SCH (09:38)
[2021-05-16] MEDS: ASPIRIN EC 81 MG TAB PO SCH (09:38)
[2021-05-16] MEDS: LOSARTAN 50 MG TAB PO SCH (09:39)
--- NOTE | 2021-05-16 09:51 | Progress Note ---
<GERARD KUHN - Last Filed: 05/16/21 17:05> Assessment and Plan Assessment and plan: This is a 70-year-old male with known past medical history of HTN and DM admitted for acute CVA Hospital Course to Date: 05/09: Patient was transferred to ICU from telemetry due to large CVA lesion and chance of edema cannot be excluded and started on mannitol 40 mg IV now and 25 mg 4 times daily for 3 days with hourly neuro checks and repeat CT head in the a.m. 05/10: Patient has hyponatremia, started on mannitol for 4 days per neurology, CT head pending. 05/11: Neuro status unchanged, repeat CT head obtained which showed slight worsening of shift, neurosurgery was contacted yesterday and plans to transfer patient to tertiary center was unsuccessful. Started on 3% saline with frequent lab checks. Lantus increased. [facility] Neurosurg was contacted last evening by Dr. Sierra. 05/12: Lantus adjusted, CT head without significant changes. Will obtain CT head in the a.m. This afternoon patient was hypokalemic and potassium was repleted. Given Haldol for agitation. 05/13: Patient had a repeat CT head which showed slight worsening, hypertonic saline stopped, phosphorus repleted. 05/14: Repeat CT head this morning with slightly worsening midline shift. Hypertonic saline restarted. Potassium repleted. will add mag to am blood. 3% NS at 30 ml/hr with goal Na 150 per neurosurgery. Rena updated at bedside by Dr. Nash and myself 05/15: 3% saline reordered, CT scan this morning, no change in neuro status. still with right-sided visual deficits however patient is able to squeeze bilateral hands and still has drift to right lower extremity. 05/16: In Afib with RVR, HR in the 140-150s, unresponsive to X2 doses of IV Lopressor. Orders placed for Amiodarone bolus and drip per protocol. It is unsure if patient has a history of Afib, however patient's significant order brought in patient's home medications list. Patient was on Eliquis 5mg BID at home. Cardiology also consulted. Patient remains on 3% Saline, continue serial Na check Q6hrs and Q1hr Neuro checks, repeat MRI brain pending. Awaiting further recommendations from Neurology and Neurosurgery. Electrolytes repleted, repeat labs in the am. Assessment and Plan #Neuro: Acute CVA with Lt. to Rt. midline shift - Patient presented with strokelike symptoms - Initial CT head was unremarkable, then repeat imagings with acute evolving CVA with Lt. to Rt. midline shift- see reports for full result - Remains with sign. expressive aphasia and right visual deficits, however able to move all extremities. - Neurology and neurosurgery on consult, appreciate recommendations - S/p mannitol gtt - On 3% Saline, continue Na check Q6hrs- Sodium goal is 150 - Continue Neuro checks Q1hr - On Aspirin and Lipitor - ST/PT/OT consulted #Atrial Fibrilation with RVR #HFrEF #H/o HTN - 05/09 Echocardiogram shows dilated cardiomyopathy, LVEF 20 to 25%, mild pulmonary hypertension - In AfiB with RVR today, HR in the 140-150s - Unclear if patient has a history, however patient was on Eliquis at home - s/p X2 doses of 5mg IV Lopressor - Order placed for Amio bolus and Amio gtt per Protocol - Cardiology consulted - BP remains stable, Continue Losartan and amlodipine - Maintain adequate perfusion - Continue blood pressure monitor per protocol - Continue AC- Lovenox SubQ - Strict I&Os and Daily weight #:Hypomagnesemia #Hypokalemia-improved - Mag repleted - Continue to Trend BMP, mg, & phosp - Strict I &Os #Endo: Hyperglycemia #H/o DM - Hemoglobin A1c 13 - Continue SSI ACHS - Lantus Qhs - Avoid Hypoglycemia #GI/DVT Prophylaxis - PPI- Pepcid - Continue AC- Lovenox SubQ The high probability of a clinically significant, sudden or life threatening deterioration of the [neuro, CV] system(s) required my full and direct attention, intervention and personal management. The aggregate critical care time was [60] minutes. This time is in addition to time spent performing reported procedures but includes the following: [x] Data Review and interpretation [x] Patient assessment and monitoring of vital signs [x] Documentation [x] Medication orders and management Disposition Plan: icu Total Time Spent with Patient (Minutes): 60 History Interval history: Patient seen and examined at the bedside. Patient is on RA, awake and alert, but remains with significant expressive aphasia. Remains on 3% saline. Patient is currently in Afib with RVR, HR in the 140-150s, BP is stable s/p X2 dose of IV L opressor with minimal response Hospitalist Physical - Constitutional Vitals: Temp Pulse Resp BP Pulse Ox 99.8 F H 70 16 164/85 99 05/16/21 07:20 05/16/21 09:39 05/16/21 09:00 05/16/21 09:39 05/16/21 09:00 General appearance: Present: no acute distress, well-nourished - EENT Eyes: Present: PERRL ENT: hearing intact - Neck Neck: Present: normal ROM - Respiratory Respiratory effort: normal Respiratory: bilateral: CTA - Cardiovascular Rhythm: regular Heart Sounds: Present: S1 & S2 - Extremities Extremities: no ischemia, pulses intact, pulses symmetrical Peripheral Pulses: within normal limits - Abdominal General gastrointestinal: soft, non-distended, normal bowel sounds - Integumentary Integumentary: Present: warm, dry - Psychiatric Psychiatric: appropriate mood/affect, cooperative - Neurologic Neurologic: focal deficits (Right visual deficit), moves all extremities, other (Epressive Aphasia) - Allied Health Allied health notes reviewed: nursing HEART Score - HEART Score Troponin: Troponin T < 0.010 ng/mL (0.00-0.029) 05/09/21 01:28 Results - Labs CBC & Chem 7: 05/16/21 06:13 05/16/21 06:13 Labs: Laboratory Last Values WBC 8.3 K/mm3 (4.5-11.0) 05/16/21 06:13 RBC 4.41 M/mm3 (3.65-5.03) 05/16/21 06:13 Hgb 14.2 gm/dl (11.8-15.2) 05/16/21 06:13 Hct 40.9 % (35.5-45.6) 05/16/21 06:13 MCV 93 fl (84-94) 05/16/21 06:13 MCH 32 pg (28-32) 05/16/21 06:13 MCHC 35 % (32-34) H 05/16/21 06:13 RDW 13.2 % (13.2-15.2) 05/16/21 06:13 Plt Count 226 K/mm3 (140-440) 05/16/21 06:13 Lymph % (Auto) 17.4 % (13.4-35.0) 05/13/21 04:22 [place] % (Auto) 13.5 % (0.0-7.3) H 05/13/21 04:22 Eos % (Auto) 0.4 % (0.0-4.3) 05/13/21 04:22 Baso % (Auto) 0.9 % (0.0-1.8) 05/13/21 04:22 Lymph # (Auto) 1.7 K/mm3 (1.2-5.4) 05/13/21 04:22 [place] # (Auto) 1.3 K/mm3 (0.0-0.8) H 05/13/21 04:22 Eos # (Auto) 0.0 K/mm3 (0.0-0.4) 05/13/21 04:22 Baso # (Auto) 0.1 K/mm3 (0.0-0.1) 05/13/21 04:22 Seg Neutrophils % 67.8 % (40.0-70.0) 05/13/21 04:22 Seg Neutrophils # 6.6 K/mm3 (1.8-7.7) 05/13/21 04:22 PT 14.0 Sec. (12.2-14.9) 05/09/21 01:28 INR 0.97 (0.87-1.13) 05/09/21 01:28 APTT 27.7 Sec. (24.2-36.6) 05/09/21 01:28 Thrombin Time 16.9 Sec. (15.1-19.6) 05/09/21 01:28 VBG pH 7.484 (7.320-7.420) H 05/09/21 01:31 Sodium 145 mmol/L (137-145) 05/16/21 06:13 Potassium 3.7 mmol/L (3.6-5.0) 05/16/21 06:13 Chloride 110.2 mmol/L (98-107) H 05/16/21 06:13 Carbon Dioxide 21 mmol/L (22-30) L 05/16/21 06:13 Anion Gap 18 mmol/L 05/16/21 06:13 BUN 4 mg/dL (9-20) L 05/16/21 06:13 Creatinine 0.8 mg/dL (0.8-1.3) 05/16/21 06:13 Estimated GFR > 60 ml/min 05/16/21 06:13 BUN/Creatinine Ratio 5 % 05/16/21 06:13 Glucose 172 mg/dL (75-100) H 05/16/21 06:13 POC Glucose 155 mg/dL (70-105) H 05/16/21 07:13 Hemoglobin A1c 13.0 % (4-6) H 05/10/21 18:26 Osmolality 301 Mosm/kg 05/15/21 01:01 Calcium 9.2 mg/dL (8.4-10.2) 05/16/21 06:13 Phosphorus 2.90 mg/dL (2.5-4.5) 05/16/21 06:13 Magnesium 1.60 mg/dL (1.7-2.3) L 05/16/21 06:13 Total Bilirubin 0.50 mg/dL (0.1-1.2) 05/09/21 01:28 AST 9 units/L (5-40) 05/09/21 01:28 ALT 7 units/L (7-56) 05/09/21 01:28 Alkaline Phosphatase 93 units/L (35-129) 05/09/21 01:28 Total Creatine Kinase 88 units/L (55-170) 05/09/21 01:28 CK-MB (CK-2) 2.0 ng/mL (0.0-4.0) 05/09/21 01:28 CK-MB (CK-2) Rel Index 2.2 (0-4) 05/09/21 01:28 Troponin T < 0.010 ng/mL (0.00-0.029) 05/09/21 01:28 Total Protein 6.4 g/dL (6.3-8.2) 05/09/21 01:28 Albumin 3.9 g/dL (3.9-5) 05/09/21 01:28 Albumin/Globulin Ratio 1.6 % 05/09/21 01:28 Triglycerides 123 mg/dL (2-149) 05/10/21 06:33 Cholesterol 265 mg/dL (50-199) H 05/10/21 06:33 LDL Cholesterol Direct 212 mg/dL (50-130) H 05/10/21 06:33 HDL Cholesterol 35 mg/dL (40-59) L 05/10/21 06:33 Cholesterol/HDL Ratio 7.57 % 05/10/21 06:33 Urine Color Straw (Yellow) 05/09/21 Unknown Urine Turbidity Clear (Clear) 05/09/21 Unknown Urine pH 7.0 (5.0-7.0) 05/09/21 Unknown Ur Specific [place] 1.028 (1.003-1.030) 05/09/21 Unknown Urine Protein 30 mg/dl mg/dL (Negative) 05/09/21 Unknown Urine Glucose (UA) >=500 mg/dL (Negative) 05/09/21 Unknown Urine Ketones Neg mg/dL (Negative) 05/09/21 Unknown Urine Blood Neg (Negative) 05/09/21 Unknown Urine Nitrite Neg (Negative) 05/09/21 Unknown Urine Bilirubin Neg (Negative) 05/09/21 Unknown Urine Urobilinogen < 2.0 mg/dL (<2.0) 05/09/21 Unknown Ur Leukocyte Esterase Neg (Negative) 05/09/21 Unknown Urine WBC (Auto) 1.0 /HPF (0.0-6.0) 05/09/21 Unknown Urine RBC (Auto) 2.0 /HPF (0.0-6.0) 05/09/21 Unknown Castro/IV: Voiding Method Incontinent Active Medications - Current Medications Current Medications: Generic Name Dose Route Start Last Admin Trade Name Freq PRN Reason Stop Dose Admin Acetaminophen 650 mg 05/09/21 03:09 05/14/21 21:08 Acetaminophen 325 Mg Tab PO 650 mg Q4H PRN Administration Pain, Mild (1-3) Amlodipine Besylate 5 mg 05/15/21 10:00 05/16/21 09:38 Amlodipine 5 Mg Tab PO 5 mg QDAY GABRIELE Administration Aspirin 81 mg 05/10/21 10:00 05/16/21 09:38 Aspirin Ec 81 Mg Tab PO 81 mg QDAY GABRIELE Administration Atorvastatin Calcium 40 mg 05/09/21 22:00 05/15/21 21:33 Atorvastatin 40 Mg Tab PO 40 mg QHS GABRIELE Administration Bisacodyl 10 mg 05/09/21 03:09 Bisacodyl [address] QDAY PRN Constipation Dextrose 0 ml 05/09/21 03:33 Dextrose 10% *Hypoglycemia IV DIRECT PRN Hypoglycemia Protocol Enoxaparin Sodium 40 mg 05/14/21 22:00 05/15/21 21:33 Enoxaparin 40 Mg/0.4 Ml Inj SUB-Q 40 mg QDAY@2200 GABRIELE Administration Protocol Haloperidol Lactate 5 mg 05/12/21 17:19 05/13/21 12:47 Haloperidol Lactate 5 Mg/1 Ml Inj IV 5 mg Q6HR PRN Administration Agitation Sodium Chloride 500 mls @ 30 mls/hr 05/15/21 09:00 05/16/21 02:19 Nacl 3% IV 30 mls/hr DIRECT GABRIELE Administration Magnesium Sulfate 4 gm in 100 mls @ 25 mls/hr 05/16/21 08:00 05/16/21 09:00 Magnesium Sulfate 4gm/100ml IV 05/16/21 12:00 25 mls/hr ONCE@0800 GABRIELE Administration Insulin Glargine 10 units 05/15/21 22:00 05/15/21 21:32 Insulin Glargine 100 Units/Ml SUB-Q 10 units QHS GABRIELE Administration Insulin Human Lispro 0 unit 05/09/21 07:30 05/16/21 08:30 Insulin Lispro 100 Unit/Ml SUB-Q 3 unit ACHS GABRIELE Administration Protocol Insulin Human Lispro 5 unit 05/12/21 14:00 05/16/21 08:30 Insulin Lispro 100 Unit/Ml SUB-Q 5 unit TID GABRIELE Administration Labetalol HCl 10 mg 05/13/21 18:25 05/15/21 12:39 Labetalol 20 Mg/4 Ml Inj IV 10 mg Q4HR PRN Administration Hypertension Losartan Potassium 50 mg 05/15/21 10:00 05/16/21 09:39 Losartan 50 Mg Tab PO 50 mg QDAY GABRIELE Administration Magnesium Hydroxide 30 ml 05/09/21 03:09 Magnesium Hydroxide (Mom) Oral Liqd Udc PO Q4H PRN Constipation Metoclopramide HCl 10 mg 05/09/21 03:09 Metoclopramide 10 Mg Tab PO Q6H PRN Nausea And Vomiting Ondansetron HCl 4 mg 05/09/21 03:09 Ondansetron 4 Mg/2 Ml Inj IV Q8H PRN Nausea And Vomiting Sodium Chloride 10 ml 05/09/21 03:09 05/14/21 21:10 Sodium Chloride 0.9% 10 Ml Flush Syringe IV 10 ml PRN PRN Administration LINE FLUSH Nutrition/Malnutrition Assess - Dietary Evaluation Nutrition/Malnutrition Findings: Nutrition Notes Start: 05/09/21 13:59 Freq: Status: Active Protocol: Document 05/12/21 15:16 SHAHIDA (Rec: 05/12/21 15:41 SHAHIDA [id number]) Nutrition Notes Initial or Follow up Assessment Current Diagnosis Diabetes,Hypertension,Stroke Other Pertinent Diagnosis HFrEF, Fluent Aphasia, Metabolic Acidosis. Current Diet Pureed Diet (since D 05/09). Labs/Tests 05/12: CO2 18, Glu 279, HbA1c 13. Pertinent Medications 05/12: Insulin, others nutritionally unremarkable. Height 5 ft 11 in Weight 86.183 kg [place] Body Weight (kg) 78.18 BMI 26.4 Weight change and time frame None reported at admission. No body weight change reported in 3 days. Weight Status Overweight Subjective/Other Information RD consult for routine F/U on LUMBER ESTIMATOR evaluation. RN note 05/10: Patient was able to feed himself breakfast and lunch. LUMBER ESTIMATOR evaluation was not performed; will reschedule. Bedside swallow screen passed on 05/12. Percent of energy/protein needs met: Prescribed Pureed Diet provides for energy/protein needs (1,804 Kcal/77 g) during LOS. Burn Absent Trauma Absent GI Symptoms None Difficulty In Swallowing Food Allergy No Skin Integrity/Comment Assessment WNL. Current % PO Good (75-100%) Minimum of two criteria No #1 Nutrition Diagnosis Swallowing difficulty Etiology Acute CVA. As Evidenced by Signs and Symptoms Swallow screen failed, althouhg, improving. Is patient on ventilator? No Is Patient Ambulatory and/or Out of Bed No REE-([facility]-confined to bed) 1966.620 Calculation Used for Recommendations [facility] Additional Notes Protein: 1-1.2 g/Kg; 86-103 g/ day. Fluids: 1 ml/Kcal, or as per MD. Nutrition Intervention Change Diet Order: Continue Pureed Diet. Goal #1 Facilitate PO intake of meals with mechanical modification during LOS. Goal #2 Maintain body weight within +/ -3% of admission body weight during LOS. Follow-Up By: 05/16/21 Additional Comments Continue monitoring food tolerance, %PO intake of meals , and BM. <IMELDA SARMIENTO - Last Filed: 05/17/21 07:13> Assessment and Plan Assessment and plan: I saw and evaluated the patient. I agree with the findings and the plan of care as documented in the Nurse Practitioner's~note, with the following corrections and additions. Continue management under guidance from CARLOS Hospitalist Physical - Constitutional Vitals: Temp Pulse Resp BP Pulse Ox 98.1 F 131 H 19 150/113 100 05/17/21 04:00 05/17/21 06:00 05/17/21 06:00 05/17/21 06:00 05/17/21 06:00 HEART Score - HEART Score Troponin: Troponin T < 0.010 ng/mL (0.00-0.029) 05/09/21 01:28 Results - Labs CBC & Chem 7: 05/16/21 06:13 05/17/21 01:36 Labs: Laboratory Last Values WBC 8.3 K/mm3 (4.5-11.0) 05/16/21 06:13 RBC 4.41 M/mm3 (3.65-5.03) 05/16/21 06:13 Hgb 14.2 gm/dl (11.8-15.2) 05/16/21 06:13 Hct 40.9 % (35.5-45.6) 05/16/21 06:13 MCV 93 fl (84-94) 05/16/21 06:13 MCH 32 pg (28-32) 05/16/21 06:13 MCHC 35 % (32-34) H 05/16/21 06:13 RDW 13.2 % (13.2-15.2) 05/16/21 06:13 Plt Count 226 K/mm3 (140-440) 05/16/21 06:13 Lymph % (Auto) 17.4 % (13.4-35.0) 05/13/21 04:22 [place] % (Auto) 13.5 % (0.0-7.3) H 05/13/21 04:22 Eos % (Auto) 0.4 % (0.0-4.3) 05/13/21 04:22 Baso % (Auto) 0.9 % (0.0-1.8) 05/13/21 04:22 Lymph # (Auto) 1.7 K/mm3 (1.2-5.4) 05/13/21 04:22 [place] # (Auto) 1.3 K/mm3 (0.0-0.8) H 05/13/21 04:22 Eos # (Auto) 0.0 K/mm3 (0.0-0.4) 05/13/21 04:22 Baso # (Auto) 0.1 K/mm3 (0.0-0.1) 05/13/21 04:22 Seg Neutrophils % 67.8 % (40.0-70.0) 05/13/21 04:22 Seg Neutrophils # 6.6 K/mm3 (1.8-7.7) 05/13/21 04:22 PT 14.0 Sec. (12.2-14.9) 05/09/21 01:28 INR 0.97 (0.87-1.13) 05/09/21 01:28 APTT 27.7 Sec. (24.2-36.6) 05/09/21 01:28 Thrombin Time 16.9 Sec. (15.1-19.6) 05/09/21 01:28 VBG pH 7.484 (7.320-7.420) H 05/09/21 01:31 Sodium 142 mmol/L (137-145) 05/17/21 01:36 Potassium 3.7 mmol/L (3.6-5.0) 05/16/21 06:13 Chloride 110.2 mmol/L (98-107) H 05/16/21 06:13 Carbon Dioxide 21 mmol/L (22-30) L 05/16/21 06:13 Anion Gap 18 mmol/L 05/16/21 06:13 BUN 4 mg/dL (9-20) L 05/16/21 06:13 Creatinine 0.8 mg/dL (0.8-1.3) 05/16/21 06:13 Estimated GFR > 60 ml/min 05/16/21 06:13 BUN/Creatinine Ratio 5 % 05/16/21 06:13 Glucose 172 mg/dL (75-100) H 05/16/21 06:13 POC Glucose 207 mg/dL (70-105) H 05/16/21 20:48 Hemoglobin A1c 13.0 % (4-6) H 05/10/21 18:26 Osmolality 301 Mosm/kg 05/15/21 01:01 Calcium 9.2 mg/dL (8.4-10.2) 05/16/21 06:13 Phosphorus 2.90 mg/dL (2.5-4.5) 05/16/21 06:13 Magnesium 1.60 mg/dL (1.7-2.3) L 05/16/21 06:13 Total Bilirubin 0.50 mg/dL (0.1-1.2) 05/09/21 01:28 AST 9 units/L (5-40) 05/09/21 01:28 ALT 7 units/L (7-56) 05/09/21 01:28 Alkaline Phosphatase 93 units/L (35-129) 05/09/21 01:28 Total Creatine Kinase 88 units/L (55-170) 05/09/21 01:28 CK-MB (CK-2) 2.0 ng/mL (0.0-4.0) 05/09/21 01:28 CK-MB (CK-2) Rel Index 2.2 (0-4) 05/09/21 01:28 Troponin T < 0.010 ng/mL (0.00-0.029) 05/09/21 01:28 Total Protein 6.4 g/dL (6.3-8.2) 05/09/21 01:28 Albumin 3.9 g/dL (3.9-5) 05/09/21 01:28 Albumin/Globulin Ratio 1.6 % 05/09/21 01:28 Triglycerides 123 mg/dL (2-149) 05/10/21 06:33 Cholesterol 265 mg/dL (50-199) H 05/10/21 06:33 LDL Cholesterol Direct 212 mg/dL (50-130) H 05/10/21 06:33 HDL Cholesterol 35 mg/dL (40-59) L 05/10/21 06:33 Cholesterol/HDL Ratio 7.57 % 05/10/21 06:33 Urine Color Straw (Yellow) 05/09/21 Unknown Urine Turbidity Clear (Clear) 05/09/21 Unknown Urine pH 7.0 (5.0-7.0) 05/09/21 Unknown Ur Specific [place] 1.028 (1.003-1.030) 05/09/21 Unknown Urine Protein 30 mg/dl mg/dL (Negative) 05/09/21 Unknown Urine Glucose (UA) >=500 mg/dL (Negative) 05/09/21 Unknown Urine Ketones Neg mg/dL (Negative) 05/09/21 Unknown Urine Blood Neg (Negative) 05/09/21 Unknown Urine Nitrite Neg (Negative) 05/09/21 Unknown Urine Bilirubin Neg (Negative) 05/09/21 Unknown Urine Urobilinogen < 2.0 mg/dL (<2.0) 05/09/21 Unknown Ur Leukocyte Esterase Neg (Negative) 05/09/21 Unknown Urine WBC (Auto) 1.0 /HPF (0.0-6.0) 05/09/21 Unknown Urine RBC (Auto) 2.0 /HPF (0.0-6.0) 05/09/21 Unknown Castro/IV: Voiding Method Diaper Active Medications - Current Medications Current Medications: Generic Name Dose Route Start Last Admin Trade Name Freq PRN Reason Stop Dose Admin Acetaminophen 650 mg 05/09/21 03:09 05/14/21 21:08 Acetaminophen 325 Mg Tab PO 650 mg Q4H PRN Administration Pain, Mild (1-3) Amlodipine Besylate 5 mg 05/15/21 10:00 05/16/21 09:38 Amlodipine 5 Mg Tab PO 5 mg QDAY GABRIELE Administration Aspirin 81 mg 05/10/21 10:00 05/16/21 09:38 Aspirin Ec 81 Mg Tab PO 81 mg QDAY GABRIELE Administration Atorvastatin Calcium 40 mg 05/09/21 22:00 05/16/21 21:15 Atorvastatin 40 Mg Tab PO 40 mg QHS GABRIELE Administration Bisacodyl 10 mg 05/09/21 03:09 Bisacodyl [address] QDAY PRN Constipation Dextrose 0 ml 05/09/21 03:33 Dextrose 10% *Hypoglycemia IV DIRECT PRN Hypoglycemia Protocol Enoxaparin Sodium 40 mg 05/14/21 22:00 05/16/21 21:15 Enoxaparin 40 Mg/0.4 Ml Inj SUB-Q 40 mg QDAY@2200 GABRIELE Administration Protocol Famotidine 10 mg 05/16/21 22:00 05/16/21 21:15 Famotidine 10 Mg Tab PO 10 mg BID GABRIELE Administration Haloperidol Lactate 5 mg 05/12/21 17:19 05/13/21 12:47 Haloperidol Lactate 5 Mg/1 Ml Inj IV 5 mg Q6HR PRN Administration Agitation Sodium Chloride 500 mls @ 30 mls/hr 05/15/21 09:00 05/16/21 21:14 Nacl 3% IV 30 mls/hr DIRECT GABRIELE Administration Amiodarone HCl 360 mg/ 200 mls @ 16.66 mls/hr 05/16/21 15:00 05/17/21 03:16 Dextrose IV 16.66 mls/hr DIRECT GABRIELE Administration Insulin Glargine 10 units 05/15/21 22:00 05/16/21 21:15 Insulin Glargine 100 Units/Ml SUB-Q 10 units QHS GABRIELE Administration Insulin Human Lispro 0 unit 05/09/21 07:30 05/16/21 21:16 Insulin Lispro 100 Unit/Ml SUB-Q 4 unit ACHS GABRIELE Administration Protocol Insulin Human Lispro 5 unit 05/12/21 14:00 05/16/21 21:16 Insulin Lispro 100 Unit/Ml SUB-Q 5 unit TID GABRIELE Administration Labetalol HCl 10 mg 05/13/21 18:25 05/15/21 12:39 Labetalol 20 Mg/4 Ml Inj IV 10 mg Q4HR PRN Administration Hypertension Losartan Potassium 50 mg 05/15/21 10:00 05/16/21 09:39 Losartan 50 Mg Tab PO 50 mg QDAY GABRIELE Administration Magnesium Hydroxide 30 ml 05/09/21 03:09 Magnesium Hydroxide (Mom) Oral Liqd Udc PO Q4H PRN Constipation Metoclopramide HCl 10 mg 05/09/21 03:09 Metoclopramide 10 Mg Tab PO Q6H PRN Nausea And Vomiting Ondansetron HCl 4 mg 05/09/21 03:09 Ondansetron 4 Mg/2 Ml Inj IV Q8H PRN Nausea And Vomiting Senna/Docusate Sodium 1 tab 05/16/21 22:00 05/16/21 21:20 Sennosides/Docusate Sodium 8.6/50 Mg Tab PO 1 tab QHS GABRIELE Administration Sodium Chloride 10 ml 05/09/21 03:09 05/14/21 21:10 Sodium Chloride 0.9% 10 Ml Flush Syringe IV 10 ml PRN PRN Administration LINE FLUSH Nutrition/Malnutrition Assess - Dietary Evaluation Nutrition/Malnutrition Findings: Nutrition Notes Start: 05/09/21 13:59 Freq: Status: Active Protocol: Document 05/16/21 14:56 SHAHIDA (Rec: 05/16/21 15:12 SHAHIDA [id number]) Nutrition Notes Initial or Follow up Brief Note Current Diet Pureed Diet (since D 05/09). Height 5 ft 11 in Weight 87 kg [place] Body Weight (kg) 78.18 BMI 26.7 Weight change and time frame 0.817 Kg body weight gain in 4 days reported. Weight Status Overweight Subjective/Other Information RD consult for routine F/U on Dietary advancement. ADL notes do not report % PO intake of meals, but stated that diet is well tolerated, RN not reachable over the phone at the time. LUMBER ESTIMATOR evaluation still pending, but bedside swallow screen failed on 05/16 "swallow Difficulty" stated by RN. Pt continues stable, without significant changes, according to Progress notes. Percent of energy/protein needs met: Prescribed Pureed Diet provides for energy/protein needs (1,804 Kcal/77 g) during LOS. #1 Nutrition Diagnosis Swallowing difficulty Comments: LUMBER ESTIMATOR evaluation still pending, but bedside swallow screen failed on 05/16 "swallow Difficulty" stated by RN. Diagnosis Progress(for reassessment Continues documentation) Is patient on ventilator? No Is Patient Ambulatory and/or Out of Bed No REE-([facility]-confined to bed) 1975.424 Calculation Used for Recommendations [facility] Additional Notes Protein: 1-1.2 g/Kg; 86-103 g/ day. Fluids: 1 ml/Kcal, or as per MD. Nutrition Intervention Change Diet Order: Continue Pureed Diet. Goal #1 Facilitate PO intake of meals with mechanical modification during LOS. Goal #2 Maintain body weight within +/ -3% of admission body weight during LOS. Follow-Up By: 05/20/21 Additional Comments Continue monitoring food tolerance, %PO intake of meals , and BM.
--- NOTE | 2021-05-16 12:17 | Progress Note ---
Assessment and Plan 70 y/o male with large stroke 05/16/21: Defer further recs and treatment to Neurology/Neurosurgery. Hopeful they will read this note and give us insight as to what future plans will be and how much longer patient will require ICU monitoring. 05/15/21: Rads suggest MRI so ordered changed. Follow up neurology and neurosurgery recs. Not sure where they want blood pressure to be. Guarded prognosis. 05/14/21: Neurology not available in person on the weekend, only tele. Discussed with [facility], they may consider tele consult to neuro. Continue neuro checks. Guarded prognosis. 05/13/21: Neurology wants to continue hypertonic saline. Called and asked about future plans and they referred me to neurosurgery. Given need for hypertonic saline, will keep in ICU. 05/12/21: Follow up neurology recs. Continue hypertonic saline as per neurology. 05/11/21: Will ask neurosurgery to see patient as there are no available ICU beds in the city. Will speak with neurology about stopping mannitol and asking if they want hypertonic saline given CT reports from this am. Keppra not started on yesterday, will ask if this is still needed. Suggest continue q4 hour neuro checks and follow neurosurgery and neurology recs for today. Continue ICU monitoring. 1. Mannitol with monitoring 2. Check Na and serum osms frequently 3. Per Neuro only needs q shift neuro checks 4. BP control 5. need to obtain home medication list and restart home meds 6. Guarded prognosis. Subjective Date of service: 05/16/21 Principal diagnosis: stable clinicaly Interval history: No acute events. Family at bedside. Same neurologic symptoms. MRI ordered but not done yet. Still on 3% Objective - Constitutional Vitals: Vital Signs - 12hr 05/16/21 05/16/21 05/16/21 01:00 02:00 03:00 Temperature Pulse Rate 69 64 62 Respiratory 21 17 17 Rate Blood Pressure 151/89 151/94 154/86 O2 Sat by Pulse 99 99 98 Oximetry 05/16/21 05/16/21 05/16/21 03:46 04:00 05:00 Temperature 98.8 F Pulse Rate 64 64 Respiratory 19 17 Rate Blood Pressure 163/87 162/82 O2 Sat by Pulse 99 100 Oximetry 05/16/21 05/16/21 05/16/21 05:52 06:00 07:00 Temperature Pulse Rate 56 L 66 Respiratory 14 14 Rate Blood Pressure 166/90 168/96 O2 Sat by Pulse 99 97 100 Oximetry 05/16/21 05/16/21 05/16/21 07:20 08:00 09:00 Temperature 99.8 F H Pulse Rate 68 67 Respiratory 22 16 Rate Blood Pressure 163/92 164/85 O2 Sat by Pulse 97 99 Oximetry 05/16/21 05/16/21 05/16/21 09:38 09:39 11:20 Temperature 98.5 F Pulse Rate 69 70 Respiratory Rate Blood Pressure 164/85 164/85 O2 Sat by Pulse Oximetry - Labs CBC & Chem 7: 05/16/21 06:13 05/16/21 06:13 Labs: Abnormal lab results 05/15/21 05/15/21 05/15/21 Range/Units 12:30 16:55 21:02 MCHC (32-34) % Chloride (98-107) mmol/L Carbon Dioxide (22-30) mmol/L BUN (9-20) mg/dL Glucose (75-100) mg/dL POC Glucose 206 H 187 H 240 H (70-105) mg/dL Magnesium (1.7-2.3) mg/dL 05/16/21 05/16/21 05/16/21 Range/Units 06:13 06:13 07:13 MCHC 35 H (32-34) % Chloride 110.2 H (98-107) mmol/L Carbon Dioxide 21 L (22-30) mmol/L BUN 4 L (9-20) mg/dL Glucose 172 H (75-100) mg/dL POC Glucose 155 H (70-105) mg/dL Magnesium 1.60 L (1.7-2.3) mg/dL 05/16/21 Range/Units 11:15 MCHC (32-34) % Chloride (98-107) mmol/L Carbon Dioxide (22-30) mmol/L BUN (9-20) mg/dL Glucose (75-100) mg/dL POC Glucose 160 H (70-105) mg/dL Magnesium (1.7-2.3) mg/dL Medications & Allergies - Medications Allergies/Adverse Reactions: Allergies No Known Allergies Allergy (Verified 05/09/21 01:02) Home Medications: Home Medications Medication Instructions Recorded Confirmed Last Taken Type Unobtainable 05/14/21 05/14/21 Unknown History Active Medications: Generic Name Dose Route Start Last Admin Trade Name Freq PRN Reason Stop Dose Admin Acetaminophen 650 mg 05/09/21 03:09 05/14/21 21:08 Acetaminophen 325 Mg Tab PO 650 mg Q4H PRN Administration Pain, Mild (1-3) Amlodipine Besylate 5 mg 05/15/21 10:00 05/16/21 09:38 Amlodipine 5 Mg Tab PO 5 mg QDAY GABRIELE Administration Aspirin 81 mg 05/10/21 10:00 05/16/21 09:38 Aspirin Ec 81 Mg Tab PO 81 mg QDAY GABRIELE Administration Atorvastatin Calcium 40 mg 05/09/21 22:00 05/15/21 21:33 Atorvastatin 40 Mg Tab PO 40 mg QHS GABRIELE Administration Bisacodyl 10 mg 05/09/21 03:09 Bisacodyl 10 Mg Rect Supp HI QDAY PRN Constipation Dextrose 0 ml 05/09/21 03:33 Dextrose 10% *Hypoglycemia IV DIRECT PRN Hypoglycemia Protocol Enoxaparin Sodium 40 mg 05/14/21 22:00 05/15/21 21:33 Enoxaparin 40 Mg/0.4 Ml Inj SUB-Q 40 mg QDAY@2200 GABRIELE Administration Protocol Haloperidol Lactate 5 mg 05/12/21 17:19 05/13/21 12:47 Haloperidol Lactate 5 Mg/1 Ml Inj IV 5 mg Q6HR PRN Administration Agitation Sodium Chloride 500 mls @ 30 mls/hr 05/15/21 09:00 05/16/21 02:19 Nacl 3% IV 30 mls/hr DIRECT GABRIELE Administration Insulin Glargine 10 units 05/15/21 22:00 05/15/21 21:32 Insulin Glargine 100 Units/Ml SUB-Q 10 units QHS GABRIELE Administration Insulin Human Lispro 0 unit 05/09/21 07:30 05/16/21 08:30 Insulin Lispro 100 Unit/Ml SUB-Q 3 unit ACHS GABRIELE Administration Protocol Insulin Human Lispro 5 unit 05/12/21 14:00 05/16/21 08:30 Insulin Lispro 100 Unit/Ml SUB-Q 5 unit TID GABRIELE Administration Labetalol HCl 10 mg 05/13/21 18:25 05/15/21 12:39 Labetalol 20 Mg/4 Ml Inj IV 10 mg Q4HR PRN Administration Hypertension Losartan Potassium 50 mg 05/15/21 10:00 05/16/21 09:39 Losartan 50 Mg Tab PO 50 mg QDAY GABRIELE Administration Magnesium Hydroxide 30 ml 05/09/21 03:09 Magnesium Hydroxide (Mom) Oral Liqd Udc PO Q4H PRN Constipation Metoclopramide HCl 10 mg 05/09/21 03:09 Metoclopramide 10 Mg Tab PO Q6H PRN Nausea And Vomiting Ondansetron HCl 4 mg 05/09/21 03:09 Ondansetron 4 Mg/2 Ml Inj IV Q8H PRN Nausea And Vomiting Sodium Chloride 10 ml 05/09/21 03:09 05/14/21 21:10 Sodium Chloride 0.9% 10 Ml Flush Syringe IV 10 ml PRN PRN Administration LINE FLUSH HEART Score - HEART Score Troponin: Troponin T < 0.010 ng/mL (0.00-0.029) 05/09/21 01:28
[2021-05-16] MEDS ORDERED: METOPROLOL TARTRATE 5 MG/5 ML INJ IV NR (12:49)
[2021-05-16] MEDS ORDERED: AMIODARONE 150 MG in DEXTROSE 5% IN WATER 97 ML IV ONE (13:54)
[2021-05-16] MEDS ORDERED: METOPROLOL TARTRATE 5 MG/5 ML INJ IV ONE (14:00)
[2021-05-16] MEDS ORDERED: AMIODARONE 900 MG in DEXTROSE 5% IN WATER 482 ML IV SCH (14:00)
[2021-05-16] MEDS: AMIODARONE 360 MG in DEXTROSE 5% IN WATER 192.8 ML IV SCH (16:28)
--- NOTE | 2021-05-16 18:30 | Magnetic Resonance Report ---
MR brain wo con INDICATION / CLINICAL INFORMATION: 70 years Male; midline shift. TECHNIQUE: Multiplanar, multisequence MR images of the brain were obtained. COMPARISON: The study is compared to previous MRI of 05/09/2021. FINDINGS: BRAIN / INTRACRANIAL CONTENTS: The findings are compatible with interval evolutionary changes of the larger infarct predominantly involving the left parietal and temporal lobes from the earlier MRI ther e has also been interval developing notable edema with sulcal effacement as well as subfalcine hernia tion with 11 mm of midline shift toward the right. Additionally, there is relative effacement of the left suprasellar cistern with mass effect upon the left midbrain. There is developing ill-defined increased diffusion signal within the right splenium of the corpus of callosum indicative of developing ischemic changes given the degree of mass effect at. A more subtle focus of increased signal seen along the posterior medial right cerebellum which may be artifactual given the peripheral location. The findings also include notable increasing mass effect upon the left lateral ventricle with slight increase in size of the right temporal horn. There is component of gyriform increased T1 weighted sig nal within the area of the large infarct compatible with subacute to process and evolving laminar nec rosis. CRANIOCERVICAL JUNCTION: No significant abnormality. VASCULAR FLOW-VOIDS: There is continued relative heterogeneous signal within the visualized distal le ft vertebral artery which may reflect decreased flow. Mass effect encroaches on the left MCA branches at. ORBITS: No significant abnormality of visualized orbits. SINUSES / MASTOIDS: There is continued mild opacification along the posterior right maxillary sinus. ADDITIONAL FINDINGS: None. IMPRESSION: 1. There is evolving large left MCA infarct from 05/09/2021 now with significant mass effect and midli ne shift as detailed above. Signer Name: Joe Glaser MD Signed: 05/16/2021 6:25 PM Workstation Name: [id number]
[2021-05-16] MEDS: ENOXAPARIN 40 MG/0.4 ML INJ SUB-Q SCH (21:15)
[2021-05-16] MEDS: INSULIN GLARGINE 100 UNITS/ML SUB-Q SCH (21:15)
[2021-05-16] MEDS: FAMOTIDINE 10 MG TAB PO SCH (21:15)
[2021-05-16] MEDS ORDERED: SENNOSIDES/DOCUSATE SODIUM 8.6/50 MG TAB PO SCH (22:00)
[2021-05-17] MEDS: AMIODARONE 360 MG in DEXTROSE 5% IN WATER 192.8 ML IV SCH (03:16)
[2021-05-17] MEDS: INSULIN LISPRO 100 UNIT/ML SUB-Q SCH ×5 (08:30→16:42)
[2021-05-17] MEDS: HALOPERIDOL LACTATE 5 MG/1 ML INJ IV PRN ×2 (08:39→16:51)
[2021-05-17] MEDS: FAMOTIDINE 10 MG TAB PO SCH (09:38)
[2021-05-17] MEDS: amLODIPine 5 MG TAB PO SCH (09:38)
[2021-05-17] MEDS: ASPIRIN EC 81 MG TAB PO SCH (09:38)
[2021-05-17] MEDS: LOSARTAN 50 MG TAB PO SCH (09:39)
--- NOTE | 2021-05-17 10:28 | Progress Note ---
<GERARD KUHN - Last Filed: 05/17/21 19:43> Assessment and Plan Assessment and plan: This is a 70-year-old male with known past medical history of HTN and DM admitted for acute CVA Hospital Course to Date: 05/09: Patient was transferred to ICU from telemetry due to large CVA lesion and chance of edema cannot be excluded and started on mannitol 40 mg IV now and 25 mg 4 times daily for 3 days with hourly neuro checks and repeat CT head in the a.m. 05/10: Patient has hyponatremia, started on mannitol for 4 days per neurology, CT head pending. 05/11: Neuro status unchanged, repeat CT head obtained which showed slight worsening of shift, neurosurgery was contacted yesterday and plans to transfer patient to tertiary center was unsuccessful. Started on 3% saline with frequent lab checks. Lantus increased. [facility] Neurosurg was contacted last evening by Dr. Sierra. 05/12: Lantus adjusted, CT head without significant changes. Will obtain CT head in the a.m. This afternoon patient was hypokalemic and potassium was repleted. Given Haldol for agitation. 05/13: Patient had a repeat CT head which showed slight worsening, hypertonic saline stopped, phosphorus repleted. 05/14: Repeat CT head this morning with slightly worsening midline shift. Hypertonic saline restarted. Potassium repleted. will add mag to am blood. 3% NS at 30 ml/hr with goal Na 150 per neurosurgery. Rena updated at bedside by Dr. Nash and myself 05/15: 3% saline reordered, CT scan this morning, no change in neuro status. still with right-sided visual deficits however patient is able to squeeze bilateral hands and still has drift to right lower extremity. 05/16: In Afib with RVR, HR in the 140-150s, unresponsive to X2 doses of IV Lopressor. Orders placed for Amiodarone bolus and drip per protocol. It is unsure if patient has a history of Afib, however patient's significant order brought in patient's home medications list. Patient was on Eliquis 5mg BID at home. Cardiology also consulted. Patient remains on 3% Saline, continue serial Na check Q6hrs and Q1hr Neuro checks, repeat MRI brain pending. Awaiting further recommendations from Neurology and Neurosurgery. Electrolytes repleted, repeat labs in the am. 3/01: Agitated this am. HR in the 160-170s showing Afib with RVR on the monitor, remains on Amiodarone and 3% Saline drips. Continue Amio gtt, cardiology consult pending. MRI brain noted, continue 3% saline gtt and serial Na check. Will f/u with Neurology/ Neurosurgery for further recommendations. Assessment and Plan #Neuro: Acute CVA with Lt. to Rt. midline shift - Patient presented with strokelike symptoms - Initial CT head was unremarkable, then repeat imagings with acute evolving CVA with Lt. to Rt. midline shift- see reports for full result - Remains with sign. expressive aphasia and right visual deficits, however able to move all extremities. - Neurology and neurosurgery on consult, appreciate recommendations - S/p mannitol gtt - On 3% Saline, continue Na check Q6hrs- Sodium goal is 150 - Continue Neuro checks Q1hr - On Aspirin and Lipitor - ST/PT/OT consulted #Atrial Fibrilation with RVR #HFrEF #H/o HTN - 05/09 Echocardiogram shows dilated cardiomyopathy, LVEF 20 to 25%, mild pulmonary hypertension - In AfiB with RVR today, HR in the 140-150s - Unclear if patient has a history, however patient was on Eliquis at home - s/p X2 doses of 5mg IV Lopressor - Order placed for Amio bolus and Amio gtt per Protocol - Cardiology consulted - BP remains stable, Continue Losartan and amlodipine - Maintain adequate perfusion - Continue blood pressure monitor per protocol - Continue AC- Lovenox SubQ - Strict I&Os and Daily weight #:Hypomagnesemia #Hypokalemia-improved - Mag repleted - Continue to Trend BMP, mg, & phosp - Strict I &Os #Endo: Hyperglycemia #H/o DM - Hemoglobin A1c 13 - Continue SSI ACHS - Lantus Qhs - Avoid Hypoglycemia #GI/DVT Prophylaxis - PPI- Pepcid - Continue AC- Lovenox SubQ The high probability of a clinically significant, sudden or life threatening deterioration of the [neuro, CV] system(s) required my full and direct attention, intervention and personal management. The aggregate critical care time was [60] minutes. This time is in addition to time spent performing reported procedures but includes the following: [x] Data Review and interpretation [x] Patient assessment and monitoring of vital signs [x] Documentation [x] Medication orders and management Disposition Plan: icu Total Time Spent with Patient (Minutes): 60 History Interval history: Patient seen and examined at the bedside. Patient restless and agitated this am, remains on RA, still with significant expressive aphasia. HR in the 160-170, Afib with RVR on the monitor. On Amiodarone and 3% Saline gtt drips. PRN Haldol administered for agitation. Hospitalist Physical - Constitutional Vitals: Temp Pulse Resp BP Pulse Ox 98.4 F 69 19 149/90 100 05/17/21 07:59 05/17/21 09:39 05/17/21 06:00 05/17/21 09:39 05/17/21 06:00 General appearance: Present: mild distress, well-nourished - EENT Eyes: Present: PERRL ENT: hearing intact - Neck Neck: Present: normal ROM - Respiratory Respiratory effort: normal Respiratory: bilateral: CTA - Cardiovascular Rhythm: irregularly irregular Heart Sounds: Present: S1 & S2 - Extremities Extremities: no ischemia, pulses intact, pulses symmetrical Peripheral Pulses: within normal limits - Abdominal General gastrointestinal: soft, non-distended, normal bowel sounds - Integumentary Integumentary: Present: warm, dry - Psychiatric Psychiatric: agitated - Neurologic Neurologic: focal deficits, moves all extremities, other (significant expressive aphasia) - Allied Health Allied health notes reviewed: nursing, case management HEART Score - HEART Score Troponin: Troponin T < 0.010 ng/mL (0.00-0.029) 05/09/21 01:28 Results - Labs CBC & Chem 7: 05/17/21 10:48 05/17/21 14:04 Labs: Laboratory Last Values WBC 8.3 K/mm3 (4.5-11.0) 05/16/21 06:13 RBC 4.41 M/mm3 (3.65-5.03) 05/16/21 06:13 Hgb 14.2 gm/dl (11.8-15.2) 05/16/21 06:13 Hct 40.9 % (35.5-45.6) 05/16/21 06:13 MCV 93 fl (84-94) 05/16/21 06:13 MCH 32 pg (28-32) 05/16/21 06:13 MCHC 35 % (32-34) H 05/16/21 06:13 RDW 13.2 % (13.2-15.2) 05/16/21 06:13 Plt Count 226 K/mm3 (140-440) 05/16/21 06:13 Lymph % (Auto) 17.4 % (13.4-35.0) 05/13/21 04:22 Delta % (Auto) 13.5 % (0.0-7.3) H 05/13/21 04:22 Eos % (Auto) 0.4 % (0.0-4.3) 05/13/21 04:22 Baso % (Auto) 0.9 % (0.0-1.8) 05/13/21 04:22 Lymph # (Auto) 1.7 K/mm3 (1.2-5.4) 05/13/21 04:22 Delta # (Auto) 1.3 K/mm3 (0.0-0.8) H 05/13/21 04:22 Eos # (Auto) 0.0 K/mm3 (0.0-0.4) 05/13/21 04:22 Baso # (Auto) 0.1 K/mm3 (0.0-0.1) 05/13/21 04:22 Seg Neutrophils % 67.8 % (40.0-70.0) 05/13/21 04:22 Seg Neutrophils # 6.6 K/mm3 (1.8-7.7) 05/13/21 04:22 PT 14.0 Sec. (12.2-14.9) 05/09/21 01:28 INR 0.97 (0.87-1.13) 05/09/21 01:28 APTT 27.7 Sec. (24.2-36.6) 05/09/21 01:28 Thrombin Time 16.9 Sec. (15.1-19.6) 05/09/21 01:28 VBG pH 7.484 (7.320-7.420) H 05/09/21 01:31 Sodium 142 mmol/L (137-145) 05/17/21 01:36 Potassium 3.7 mmol/L (3.6-5.0) 05/16/21 06:13 Chloride 110.2 mmol/L (98-107) H 05/16/21 06:13 Carbon Dioxide 21 mmol/L (22-30) L 05/16/21 06:13 Anion Gap 18 mmol/L 05/16/21 06:13 BUN 4 mg/dL (9-20) L 05/16/21 06:13 Creatinine 0.8 mg/dL (0.8-1.3) 05/16/21 06:13 Estimated GFR > 60 ml/min 05/16/21 06:13 BUN/Creatinine Ratio 5 % 05/16/21 06:13 Glucose 172 mg/dL (75-100) H 05/16/21 06:13 POC Glucose 175 mg/dL (70-105) H 05/17/21 07:24 Hemoglobin A1c 13.0 % (4-6) H 05/10/21 18:26 Osmolality 301 Mosm/kg 05/15/21 01:01 Calcium 9.2 mg/dL (8.4-10.2) 05/16/21 06:13 Phosphorus 2.90 mg/dL (2.5-4.5) 05/16/21 06:13 Magnesium 1.60 mg/dL (1.7-2.3) L 05/16/21 06:13 Total Bilirubin 0.50 mg/dL (0.1-1.2) 05/09/21 01:28 AST 9 units/L (5-40) 05/09/21 01:28 ALT 7 units/L (7-56) 05/09/21 01:28 Alkaline Phosphatase 93 units/L (35-129) 05/09/21 01:28 Total Creatine Kinase 88 units/L (55-170) 05/09/21 01:28 CK-MB (CK-2) 2.0 ng/mL (0.0-4.0) 05/09/21 01:28 CK-MB (CK-2) Rel Index 2.2 (0-4) 05/09/21 01:28 Troponin T < 0.010 ng/mL (0.00-0.029) 05/09/21 01:28 Total Protein 6.4 g/dL (6.3-8.2) 05/09/21 01:28 Albumin 3.9 g/dL (3.9-5) 05/09/21 01:28 Albumin/Globulin Ratio 1.6 % 05/09/21 01:28 Triglycerides 123 mg/dL (2-149) 05/10/21 06:33 Cholesterol 265 mg/dL (50-199) H 05/10/21 06:33 LDL Cholesterol Direct 212 mg/dL (50-130) H 05/10/21 06:33 HDL Cholesterol 35 mg/dL (40-59) L 05/10/21 06:33 Cholesterol/HDL Ratio 7.57 % 05/10/21 06:33 Urine Color Straw (Yellow) 05/09/21 Unknown Urine Turbidity Clear (Clear) 05/09/21 Unknown Urine pH 7.0 (5.0-7.0) 05/09/21 Unknown Ur Specific [place] 1.028 (1.003-1.030) 05/09/21 Unknown Urine Protein 30 mg/dl mg/dL (Negative) 05/09/21 Unknown Urine Glucose (UA) >=500 mg/dL (Negative) 05/09/21 Unknown Urine Ketones Neg mg/dL (Negative) 05/09/21 Unknown Urine Blood Neg (Negative) 05/09/21 Unknown Urine Nitrite Neg (Negative) 05/09/21 Unknown Urine Bilirubin Neg (Negative) 05/09/21 Unknown Urine Urobilinogen < 2.0 mg/dL (<2.0) 05/09/21 Unknown Ur Leukocyte Esterase Neg (Negative) 05/09/21 Unknown Urine WBC (Auto) 1.0 /HPF (0.0-6.0) 05/09/21 Unknown Urine RBC (Auto) 2.0 /HPF (0.0-6.0) 05/09/21 Unknown Castro/IV: Voiding Method Diaper Active Medications - Current Medications Current Medications: Generic Name Dose Route Start Last Admin Trade Name Freq PRN Reason Stop Dose Admin Acetaminophen 650 mg 05/09/21 03:09 05/14/21 21:08 Acetaminophen 325 Mg Tab PO 650 mg Q4H PRN Administration Pain, Mild (1-3) Amlodipine Besylate 5 mg 05/15/21 10:00 05/17/21 09:38 Amlodipine 5 Mg Tab PO 5 mg QDAY GABRIELE Administration Aspirin 81 mg 05/10/21 10:00 05/17/21 09:38 Aspirin Ec 81 Mg Tab PO 81 mg QDAY GABRIELE Administration Atorvastatin Calcium 40 mg 05/09/21 22:00 05/16/21 21:15 Atorvastatin 40 Mg Tab PO 40 mg QHS GABRIELE Administration Bisacodyl 10 mg 05/09/21 03:09 Bisacodyl 10 Mg Rect Supp [place] QDAY PRN Constipation Dextrose 0 ml 05/09/21 03:33 Dextrose 10% *Hypoglycemia IV DIRECT PRN Hypoglycemia Protocol Enoxaparin Sodium 40 mg 05/14/21 22:00 05/16/21 21:15 Enoxaparin 40 Mg/0.4 Ml Inj SUB-Q 40 mg QDAY@2200 GABRIELE Administration Protocol Famotidine 10 mg 05/16/21 22:00 05/17/21 09:38 Famotidine 10 Mg Tab PO 10 mg BID GABRIELE Administration Haloperidol Lactate 5 mg 05/12/21 17:19 05/17/21 08:39 Haloperidol Lactate 5 Mg/1 Ml Inj IV 5 mg Q6HR PRN Administration Agitation Sodium Chloride 500 mls @ 30 mls/hr 05/15/21 09:00 05/16/21 21:14 Nacl 3% IV 30 mls/hr DIRECT GABRIELE Administration Amiodarone HCl 360 mg/ 200 mls @ 16.66 mls/hr 05/16/21 15:00 05/17/21 03:16 Dextrose IV 16.66 mls/hr DIRECT GABRIELE Administration Insulin Glargine 10 units 05/15/21 22:00 05/16/21 21:15 Insulin Glargine 100 Units/Ml SUB-Q 10 units QHS GABRIELE Administration Insulin Human Lispro 0 unit 05/09/21 07:30 05/17/21 08:30 Insulin Lispro 100 Unit/Ml SUB-Q 3 unit ACHS GABRIELE Administration Protocol Insulin Human Lispro 5 unit 05/12/21 14:00 05/17/21 08:30 Insulin Lispro 100 Unit/Ml SUB-Q 5 unit TID GABRIELE Administration Labetalol HCl 10 mg 05/13/21 18:25 05/17/21 08:30 Labetalol 20 Mg/4 Ml Inj IV 10 mg Q4HR PRN Administration Hypertension Losartan Potassium 50 mg 05/15/21 10:00 05/17/21 09:39 Losartan 50 Mg Tab PO 50 mg QDAY GABRIELE Administration Magnesium Hydroxide 30 ml 05/09/21 03:09 Magnesium Hydroxide (Mom) Oral Liqd Udc PO Q4H PRN Constipation Metoclopramide HCl 10 mg 05/09/21 03:09 Metoclopramide 10 Mg Tab PO Q6H PRN Nausea And Vomiting Ondansetron HCl 4 mg 05/09/21 03:09 Ondansetron 4 Mg/2 Ml Inj IV Q8H PRN Nausea And Vomiting Senna/Docusate Sodium 1 tab 05/16/21 22:00 05/16/21 21:20 Sennosides/Docusate Sodium 8.6/50 Mg Tab PO 1 tab QHS GABRIELE Administration Sodium Chloride 10 ml 05/09/21 03:09 05/14/21 21:10 Sodium Chloride 0.9% 10 Ml Flush Syringe IV 10 ml PRN PRN Administration LINE FLUSH Nutrition/Malnutrition Assess - Dietary Evaluation Nutrition/Malnutrition Findings: Nutrition Notes Start: 05/09/21 13:59 Freq: Status: Active Protocol: Document 05/16/21 14:56 SHAHIDA (Rec: 05/16/21 15:12 SHAHIDA [id number]) Nutrition Notes Initial or Follow up Brief Note Current Diet Pureed Diet (since D 05/09). Height 5 ft 11 in Weight 87 kg [place] Body Weight (kg) 78.18 BMI 26.7 Weight change and time frame 0.817 Kg body weight gain in 4 days reported. Weight Status Overweight Subjective/Other Information RD consult for routine F/U on Dietary advancement. ADL notes do not report % PO intake of meals, but stated that diet is well tolerated, RN not reachable over the phone at the time. CABLEMAN evaluation still pending, but bedside swallow screen failed on 05/16 "swallow Difficulty" stated by RN. Pt continues stable, without significant changes, according to Progress notes. Percent of energy/protein needs met: Prescribed Pureed Diet provides for energy/protein needs (1,804 Kcal/77 g) during LOS. #1 Nutrition Diagnosis Swallowing difficulty Comments: CABLEMAN evaluation still pending, but bedside swallow screen failed on 05/16 "swallow Difficulty" stated by RN. Diagnosis Progress(for reassessment Continues documentation) Is patient on ventilator? No Is Patient Ambulatory and/or Out of Bed No REE-([facility]-confined to bed) 1975.424 Calculation Used for Recommendations [facility] Additional Notes Protein: 1-1.2 g/Kg; 86-103 g/ day. Fluids: 1 ml/Kcal, or as per MD. Nutrition Intervention Change Diet Order: Continue Pureed Diet. Goal #1 Facilitate PO intake of meals with mechanical modification during LOS. Goal #2 Maintain body weight within +/ -3% of admission body weight during LOS. Follow-Up By: 05/20/21 Additional Comments Continue monitoring food tolerance, %PO intake of meals , and BM. <IMELDA SARMIENTO - Last Filed: 05/18/21 07:37> Assessment and Plan Assessment and plan: I saw and evaluated the patient. I agree with the findings and the plan of care as documented in the Nurse Practitioner's~note, with the following corrections and additions. updated the daughter Hospitalist Physical - Constitutional Vitals: Temp Pulse Resp BP Pulse Ox 98.2 F 67 19 151/80 100 05/17/21 12:00 05/17/21 17:30 05/17/21 17:30 05/17/21 17:30 05/17/21 17:30 HEART Score - HEART Score Troponin: Troponin T < 0.010 ng/mL (0.00-0.029) 05/09/21 01:28 Results - Labs CBC & Chem 7: 05/17/21 10:48 05/17/21 14:04 Labs: Laboratory Last Values WBC 10.5 K/mm3 (4.5-11.0) 05/17/21 10:48 RBC 4.22 M/mm3 (3.65-5.03) 05/17/21 10:48 Hgb 14.0 gm/dl (11.8-15.2) 05/17/21 10:48 Hct 38.8 % (35.5-45.6) 05/17/21 10:48 MCV 92 fl (84-94) 05/17/21 10:48 MCH 33 pg (28-32) H 05/17/21 10:48 MCHC 36 % (32-34) H 05/17/21 10:48 RDW 13.4 % (13.2-15.2) 05/17/21 10:48 Plt Count 269 K/mm3 (140-440) 05/17/21 10:48 Lymph % (Auto) 17.4 % (13.4-35.0) 05/13/21 04:22 Delta % (Auto) 13.5 % (0.0-7.3) H 05/13/21 04:22 Eos % (Auto) 0.4 % (0.0-4.3) 05/13/21 04:22 Baso % (Auto) 0.9 % (0.0-1.8) 05/13/21 04:22 Lymph # (Auto) 1.7 K/mm3 (1.2-5.4) 05/13/21 04:22 Delta # (Auto) 1.3 K/mm3 (0.0-0.8) H 05/13/21 04:22 Eos # (Auto) 0.0 K/mm3 (0.0-0.4) 05/13/21 04:22 Baso # (Auto) 0.1 K/mm3 (0.0-0.1) 05/13/21 04:22 Seg Neutrophils % 67.8 % (40.0-70.0) 05/13/21 04:22 Seg Neutrophils # 6.6 K/mm3 (1.8-7.7) 05/13/21 04:22 PT 15.3 Sec. (12.2-14.9) H 05/17/21 14:04 INR 1.09 (0.87-1.13) 05/17/21 14:04 APTT 26.3 Sec. (24.2-36.6) 05/17/21 14:04 Thrombin Time 16.9 Sec. (15.1-19.6) 05/09/21 01:28 VBG pH 7.484 (7.320-7.420) H 05/09/21 01:31 Sodium 143 mmol/L (137-145) 05/17/21 14:04 Potassium 3.6 mmol/L (3.6-5.0) 05/17/21 10:48 Chloride 111.1 mmol/L (98-107) H 05/17/21 10:48 Carbon Dioxide 17 mmol/L (22-30) L 05/17/21 10:48 Anion Gap 19 mmol/L 05/17/21 10:48 BUN 7 mg/dL (9-20) L 05/17/21 10:48 Creatinine 0.8 mg/dL (0.8-1.3) 05/17/21 10:48 Estimated GFR > 60 ml/min 05/17/21 10:48 BUN/Creatinine Ratio 9 % 05/17/21 10:48 Glucose 235 mg/dL (75-100) H 05/17/21 10:48 POC Glucose 146 mg/dL (70-105) H 05/17/21 16:01 Hemoglobin A1c 13.0 % (4-6) H 05/10/21 18:26 Osmolality 301 Mosm/kg 05/15/21 01:01 Calcium 9.0 mg/dL (8.4-10.2) 05/17/21 10:48 Phosphorus 2.60 mg/dL (2.5-4.5) 05/17/21 10:48 Magnesium 2.00 mg/dL (1.7-2.3) 05/17/21 10:48 Total Bilirubin 0.50 mg/dL (0.1-1.2) 05/09/21 01:28 AST 9 units/L (5-40) 05/09/21 01:28 ALT 7 units/L (7-56) 05/09/21 01:28 Alkaline Phosphatase 93 units/L (35-129) 05/09/21 01:28 Total Creatine Kinase 88 units/L (55-170) 05/09/21 01:28 CK-MB (CK-2) 2.0 ng/mL (0.0-4.0) 05/09/21 01:28 CK-MB (CK-2) Rel Index 2.2 (0-4) 05/09/21 01:28 Troponin T < 0.010 ng/mL (0.00-0.029) 05/09/21 01:28 Total Protein 6.4 g/dL (6.3-8.2) 05/09/21 01:28 Albumin 3.9 g/dL (3.9-5) 05/09/21 01:28 Albumin/Globulin Ratio 1.6 % 05/09/21 01:28 Triglycerides 123 mg/dL (2-149) 05/10/21 06:33 Cholesterol 265 mg/dL (50-199) H 05/10/21 06:33 LDL Cholesterol Direct 212 mg/dL (50-130) H 05/10/21 06:33 HDL Cholesterol 35 mg/dL (40-59) L 05/10/21 06:33 Cholesterol/HDL Ratio 7.57 % 05/10/21 06:33 Urine Color Straw (Yellow) 05/09/21 Unknown Urine Turbidity Clear (Clear) 05/09/21 Unknown Urine pH 7.0 (5.0-7.0) 05/09/21 Unknown Ur Specific [place] 1.028 (1.003-1.030) 05/09/21 Unknown Urine Protein 30 mg/dl mg/dL (Negative) 05/09/21 Unknown Urine Glucose (UA) >=500 mg/dL (Negative) 05/09/21 Unknown Urine Ketones Neg mg/dL (Negative) 05/09/21 Unknown Urine Blood Neg (Negative) 05/09/21 Unknown Urine Nitrite Neg (Negative) 05/09/21 Unknown Urine Bilirubin Neg (Negative) 05/09/21 Unknown Urine Urobilinogen < 2.0 mg/dL (<2.0) 05/09/21 Unknown Ur Leukocyte Esterase Neg (Negative) 05/09/21 Unknown Urine WBC (Auto) 1.0 /HPF (0.0-6.0) 05/09/21 Unknown Urine RBC (Auto) 2.0 /HPF (0.0-6.0) 05/09/21 Unknown Castro/IV: Voiding Method Diaper Nutrition/Malnutrition Assess - Dietary Evaluation Nutrition/Malnutrition Findings: Nutrition Notes Start: 05/09/21 13:59 Freq: Status: Discharge Protocol: Document 05/16/21 14:56 SHAHIDA (Rec: 05/16/21 15:12 SHAHIDA [id number]) Nutrition Notes Initial or Follow up Brief Note Current Diet Pureed Diet (since D 05/09). Height 5 ft 11 in Weight 87 kg [place] Body Weight (kg) 78.18 BMI 26.7 Weight change and time frame 0.817 Kg body weight gain in 4 days reported. Weight Status Overweight Subjective/Other Information RD consult for routine F/U on Dietary advancement. ADL notes do not report % PO intake of meals, but stated that diet is well tolerated, RN not reachable over the phone at the time. CABLEMAN evaluation still pending, but bedside swallow screen failed on 05/16 "swallow Difficulty" stated by RN. Pt continues stable, without significant changes, according to Progress notes. Percent of energy/protein needs met: Prescribed Pureed Diet provides for energy/protein needs (1,804 Kcal/77 g) during LOS. #1 Nutrition Diagnosis Swallowing difficulty Comments: CABLEMAN evaluation still pending, but bedside swallow screen failed on 05/16 "swallow Difficulty" stated by RN. Diagnosis Progress(for reassessment Continues documentation) Is patient on ventilator? No Is Patient Ambulatory and/or Out of Bed No REE-([facility]-confined to bed) 1975.424 Calculation Used for Recommendations [facility] Additional Notes Protein: 1-1.2 g/Kg; 86-103 g/ day. Fluids: 1 ml/Kcal, or as per MD. Nutrition Intervention Change Diet Order: Continue Pureed Diet. Goal #1 Facilitate PO intake of meals with mechanical modification during LOS. Goal #2 Maintain body weight within +/ -3% of admission body weight during LOS. Follow-Up By: 05/20/21 Additional Comments Continue monitoring food tolerance, %PO intake of meals , and BM.
--- NOTE | 2021-05-17 11:25 | Consultation ---
History of Present Illness Consult date: 05/17/21 Consult reason: atrial fibrillation History of present illness: The patient is a frail appearing, 70-year-old man admitted to this hospital a week ago with altered mental status, gait abnormality, ultimately diagnosed with acute CVA. He has been under the management of the internal medicine, ICU and neurology services. On his admission he was in sinus rhythm and has remained in a stable sinus rhythm until yesterday evening when he spontaneously developed rapid atrial fibrillation. He was placed on intravenous amiodarone, and this morning, cardiology was consulted for further assessment of his paroxysmal atrial fibrillation. The patient's is at his bedside, and reports no prior known cardiac history. On the intravenous amiodarone, the patient is reverted back into a stable sinus rhythm at 70. Review of his record shows that a week ago on his presentation here the echocardiogram ordered by the medical service showed dilated cardiomyopathy with severe left ventricular systolic dysfunction, ejection fraction 20 to 25%. Saline bubble contrast study was negative. The chronicity of his cardiomyopathy is uncertain, the patient's reports no history of known coronary artery disease, heart failure or previous atrial fibrillation. His serial sinus EKG is show inferior Q waves and poor R wave progression across the precordium, both suggestive of prior inferior and anterior infarcts. No acute ischemic changes. Past History Past Medical History: diabetes, hypertension Past Surgical History: No surgical history Social history: no significant social history Family history: no significant family history Medications and Allergies Allergies Allergy/AdvReac Type Severity Reaction Status Date / Time No Known Allergies Allergy Verified 05/09/21 01:02 Home Medications Medication Instructions Recorded Confirmed Last Taken Type Unobtainable 05/14/21 05/14/21 Unknown History Active Meds: Active Medications Acetaminophen (Acetaminophen 325 Mg Tab) 650 mg PO Q4H PRN PRN Reason: Pain, Mild (1-3) Last Admin: 05/14/21 21:08 Dose: 650 mg Amiodarone HCl (Amiodarone 200 Mg Tab) 200 mg PO QDAY [facility] Amlodipine Besylate (Amlodipine 5 Mg Tab) 5 mg PO QDAY [facility] Last Admin: 05/17/21 09:38 Dose: 5 mg Apixaban (Apixaban 2.5 Mg Tab) 2.5 mg PO Q12HR [facility]; Protocol Atorvastatin Calcium (Atorvastatin 40 Mg Tab) 40 mg PO QHS [facility] Last Admin: 05/16/21 21:15 Dose: 40 mg Bisacodyl (Bisacodyl 10 Mg Rect Supp) 10 mg NH QDAY PRN PRN Reason: Constipation Dextrose (Dextrose 10% *Hypoglycemia) 0 ml IV DIRECT PRN; Protocol PRN Reason: Hypoglycemia Famotidine (Famotidine 10 Mg Tab) 10 mg PO BID [facility] Last Admin: 05/17/21 09:38 Dose: 10 mg Haloperidol Lactate (Haloperidol Lactate 5 Mg/1 Ml Inj) 5 mg IV Q6HR PRN PRN Reason: Agitation Last Admin: 05/17/21 08:39 Dose: 5 mg Sodium Chloride (Nacl 3%) 500 mls @ 30 mls/hr IV DIRECT [facility] Last Admin: 05/16/21 21:14 Dose: 30 mls/hr Insulin Glargine (Insulin Glargine 100 Units/Ml) 10 units SUB-Q QHS [facility] Last Admin: 05/16/21 21:15 Dose: 10 units Insulin Human Lispro (Insulin Lispro 100 Unit/Ml) 0 unit SUB-Q ACHS [facility]; Protocol Last Admin: 05/17/21 08:30 Dose: 3 unit Insulin Human Lispro (Insulin Lispro 100 Unit/Ml) 5 unit SUB-Q TID [facility] Last Admin: 05/17/21 08:30 Dose: 5 unit Labetalol HCl (Labetalol 20 Mg/4 Ml Inj) 10 mg IV Q4HR PRN PRN Reason: Hypertension Last Admin: 05/17/21 08:30 Dose: 10 mg Losartan Potassium (Losartan 50 Mg Tab) 50 mg PO QDAY [facility] Last Admin: 05/17/21 09:39 Dose: 50 mg Magnesium Hydroxide (Magnesium Hydroxide (Mom) Oral Liqd Udc) 30 ml PO Q4H PRN PRN Reason: Constipation Metoclopramide HCl (Metoclopramide 10 Mg Tab) 10 mg PO Q6H PRN PRN Reason: Nausea And Vomiting Metoprolol Tartrate (Metoprolol Tartrate 25 Mg Tab) 25 mg PO Q6H [facility] Ondansetron HCl (Ondansetron 4 Mg/2 Ml Inj) 4 mg IV Q8H PRN PRN Reason: Nausea And Vomiting Senna/Docusate Sodium (Sennosides/Docusate Sodium 8.6/50 Mg Tab) 1 tab PO QHS [facility] Last Admin: 05/16/21 21:20 Dose: 1 tab Sodium Chloride (Sodium Chloride 0.9% 10 Ml Flush Syringe) 10 ml IV PRN PRN PRN Reason: LINE FLUSH Last Admin: 05/14/21 21:10 Dose: 10 ml Spironolactone (Spironolactone 25 Mg Tab) 25 mg PO QDAY [facility] Review of Systems ROS unobtainable: due to mental status Physical Examination Vital Signs Temp Pulse 98.1 F 86 05/09/21 01:22 05/09/21 01:22 General appearance: no acute distress, cachectic, other (Patient is frail cachectic chronically ill-appearing) HEENT: Positive: PERRL Neck: Positive: neck supple Cardiac: Positive: Irregularly Regular Lungs: Positive: Decreased Breath Sounds Neuro: Positive: Weakness (Generalized lethargy) Abdomen: Positive: Soft Male genitourinary: Positive: deferred Skin: Positive: Clear Extremities: Absent: edema Results 05/16/21 06:13 05/17/21 01:36 Comprehensive Metabolic Panel 05/16/21 05/17/21 Range/Units 18:44 01:36 Sodium 142 142 (137-145) mmol/L EKG interpretations - Telemetry EKG Rhythm: Sinus Rhythm Assessment and Plan - Patient Problems (1) Paroxysmal atrial fibrillation Current Visit: Yes Status: Acute Plan to address problem: Patient presented with acute CVA 1 week ago, now developed new onset atrial fibrillation. Atrial fibrillation has reverted back to sinus rhythm on amiodarone, we will continue amiodarone therapy. Due to his high chads 2 vascular score, we will recommend Eliquis 2.5 mg twice daily. (2) Dilated cardiomyopathy Current Visit: Yes Status: Acute Plan to address problem: Patient presented with acute CVA, echocardiogram shows a dilated cardiomyopathy with severe left ventricular systolic dysfunction, of uncertain chronicity. We will recommend optimal guideline directed medical therapy, for asymptomatic cardiomyopathy. Further cardiac work-up and management will depend on clinical course and may be continued in the outpatient setting.
[2021-05-17 11:36] LABS: Mean Corpuscular HGB Conc 36 % (32-34); Mean Corpuscular Volume 92 fl (84-94); Platelet Count 269 K/mm3 (140-440); Red Blood Count 4.22 M/mm3 (3.65-5.03); Red Cell Distribution Width 13.4 % (13.2-15.2)
[2021-05-17 11:37] LABS: Hematocrit 38.8 % (35.5-45.6)
[2021-05-17 11:44] LABS: BUN/Creatinine Ratio 9; Blood Urea Nitrogen 7 mg/dL (9-20); Hemolysis Index 13
[2021-05-17] MEDS ORDERED: AMIODARONE 200 MG TAB PO SCH (12:00)
[2021-05-17] MEDS ORDERED: METOPROLOL TARTRATE 25 MG TAB PO SCH (12:00)
[2021-05-17] MEDS ORDERED: SPIRONOLACTONE 25 MG TAB PO SCH (12:00)
--- NOTE | 2021-05-17 12:57 | Discharge Summary ---
<GERARD KUHN - Last Filed: 05/17/21 19:40> Providers - Providers Date of Admission: 05/09/21 03:10 Date of discharge: 05/17/21 Attending physician: IMELDA SARMIENTO MD 05/09/21 03:10 Consult to Dietitian/Nutrition [CONS] Routine Physician Instructions: Reason For Exam: Reason for Consult: Nutrition Recommendations Reason for Consult: Diet education Occupational Therapy Evaluate and Treat [CONS] Routine Comment: Reason For Exam: Neuro deficits Physical Therapy Evaluation and Treat [CONS] Routine Comment: Reason For Exam: Neuro deficits 05/09/21 03:11 Speech Therapy Evaluation and Treat [CONS] Routine Reason For Exam: swallow eval 05/09/21 04:07 Consult to Physician [CONS] Routine Comment: Consulting Provider: ISATU PABON Physician Instructions: Reason For Exam: Expressive aphasia, unsteady gait. Possible CVA 05/10/21 18:00 Consult to Physician [CONS] Routine Comment: left message/adrián Consulting Provider: TANA CARRASCO II Physician Instructions: Reason For Exam: midline shift 05/16/21 13:00 Consult to Physician [CONS] Routine Comment: call office left message/adrián Consulting Provider: RAFFI LUTZ Physician Instructions: Reason For Exam: AFIB with RVR Primary care physician: ACCESS COORDINATOR Hospitalization Reason for admission: Acute CVA Condition: Stable Hospital course: This is a 70-year-old male with known past medical history of HTN and DM admitted for acute CVA Hospital Course to Date: 05/09: Patient was transferred to ICU from telemetry due to large CVA lesion and chance of edema cannot be excluded and started on mannitol 40 mg IV now and 25 mg 4 times daily for 3 days with hourly neuro checks and repeat CT head in the a.m. 05/10: Patient has hyponatremia, started on mannitol for 4 days per neurology, CT head pending. 05/11: Neuro status unchanged, repeat CT head obtained which showed slight worsening of shift, neurosurgery was contacted yesterday and plans to transfer patient to tertiary center was unsuccessful. Started on 3% saline with frequent lab checks. Lantus increased. [facility]urg was contacted last evening by Dr. Pabon. 05/12: Lantus adjusted, CT head without significant changes. Will obtain CT head in the a.m. This afternoon patient was hypokalemic and potassium was repleted. Given Haldol for agitation. 05/13: Patient had a repeat CT head which showed slight worsening, hypertonic saline stopped, phosphorus repleted. 05/14: Repeat CT head this morning with slightly worsening midline shift. Hypertonic saline restarted. Potassium repleted. will add mag to am blood. 3% NS at 30 ml/hr with goal Na 150 per neurosurgery. Rena updated at bedside by Dr. Nash and myself 05/15: 3% saline reordered, CT scan this morning, no change in neuro status. still with right-sided visual deficits however patient is able to squeeze bilateral hands and still has drift to right lower extremity. 05/16: In Afib with RVR, HR in the 140-150s, unresponsive to X2 doses of IV Lopressor. Orders placed for Amiodarone bolus and drip per protocol. It is unsure if patient has a history of Afib, however patient's significant order brought in patient's home medications list. Patient was on Eliquis 5mg BID at home. Cardiology also consulted. Patient remains on 3% Saline, continue serial Na check Q6hrs and Q1hr Neuro checks, repeat MRI brain pending. Awaiting further recommendations from Neurology and Neurosurgery. Electrolytes repleted, repeat labs in the am. 05/17: Agitated this am. HR in the 160-170s showing Afib with RVR on the monitor, remains on Amiodarone and 3% Saline drips. Continue Amio gtt, cardiology consult pending. MRI brain noted, continue 3% saline gtt and serial Na check. Will f/u with Neurology/ Neurosurgery for further recommendations. -F/U recommendation from NeuroSurgery- Patient is being transfer to [facility] for further eval. Patient significant was notified at the bedside, she call patient's son and he was also updated. All questions and concerns were voiced at this time. Assessment and Plan #Neuro: Acute CVA with Lt. to Rt. midline shift - Patient presented with strokelike symptoms - Initial CT head was unremarkable, then repeat imagings with acute evolving CVA with Lt. to Rt. midline shift- see reports for full result - Remains with sign. expressive aphasia and right visual deficits, however able to move all extremities. - Neurology and neurosurgery on consult, appreciate recommendations - S/p mannitol gtt - On 3% Saline, continue Na check Q6hrs- Sodium goal is 150 - Continue Neuro checks Q1hr - On Aspirin and Lipitor - ST/PT/OT consulted #Atrial Fibrilation with RVR #HFrEF #H/o HTN - 05/09 Echocardiogram shows dilated cardiomyopathy, LVEF 20 to 25%, mild pulmonary hypertension - In AfiB with RVR today, HR in the 140-150s - Unclear if patient has a history, however patient was on Eliquis at home - s/p X2 doses of 5mg IV Lopressor - Order placed for Amio bolus and Amio gtt per Protocol - Cardiology consulted - BP remains stable, Continue Losartan and amlodipine - Maintain adequate perfusion - Continue blood pressure monitor per protocol - Continue AC- Lovenox SubQ - Strict I&Os and Daily weight #:Hypomagnesemia #Hypokalemia-improved - Mag repleted - Continue to Trend BMP, mg, & phosp - Strict I &Os #Endo: Hyperglycemia #H/o DM - Hemoglobin A1c 13 - Continue SSI ACHS - Lantus Qhs - Avoid Hypoglycemia #GI/DVT Prophylaxis - PPI- Pepcid - Continue AC- Lovenox SubQ Disposition: 04 [facility] Final Discharge Diagnosis (Prints w/discharge instructions): Acute CVA with midline shift Time spent for discharge: 35 Core Measure Documentation - Palliative Care Palliative Care/ Comfort Measures: Not Applicable - Core Measures Any of the following diagnoses?: stroke - Stroke Discharge Requirements Statin for LDL = or >70 mg/dl on DC: Yes Anticoag for atrial fib/atrial flutter: Yes Antithrombotic for ischemic stroke: No Reason for no antithrombotic on DC: Not Indicated (Pass window) Exam - Constitutional Vitals: Temp Pulse Resp BP Pulse Ox 98.2 F 78 16 154/96 100 05/17/21 12:00 05/17/21 11:00 05/17/21 11:00 05/17/21 11:00 05/17/21 11:00 General appearance: Present: no acute distress, well-nourished - EENT Eyes: Present: PERRL ENT: hearing intact - Neck Neck: Present: normal ROM - Respiratory Respiratory effort: normal Respiratory: bilateral: CTA - Cardiovascular Rhythm: regularly irregular Heart Sounds: Present: S1 & S2 - Extremities Extremities: no ischemia, pulses intact, pulses symmetrical Peripheral Pulses: within normal limits - Abdominal General gastrointestinal: Present: soft, non-distended, normal bowel sounds Male genitourinary: Present: deferred - Rectal Rectal Exam: deferred - Integumentary Integumentary: Present: clear, warm, dry - Musculoskeletal Musculoskeletal: generalized weakness - Psychiatric Psychiatric: cooperative - Neurologic Neurologic: focal deficits, moves all extremities, other (Expressive aphasia) - Allied Health Allied health notes reviewed: nursing, case management Plan Activity: advance as tolerated, fall precautions Diet: other (Per receiving facility) Wound: open to air Follow up with: PRIMARY CAREMD [Primary Care Provider] - 7 Days <IMELDA SARMIENTO - Last Filed: 05/18/21 07:37> Providers - Providers Date of Admission: 05/09/21 03:10 Attending physician: IMELDA SARMIENTO MD 05/09/21 03:10 Consult to Dietitian/Nutrition [CONS] Routine Physician Instructions: Reason For Exam: Reason for Consult: Nutrition Recommendations Reason for Consult: Diet education Occupational Therapy Evaluate and Treat [CONS] Routine Comment: Reason For Exam: Neuro deficits Physical Therapy Evaluation and Treat [CONS] Routine Comment: Reason For Exam: Neuro deficits 05/09/21 03:11 Speech Therapy Evaluation and Treat [CONS] Routine Reason For Exam: swallow eval 05/09/21 04:07 Consult to Physician [CONS] Routine Comment: Consulting Provider: ISATU PABON Physician Instructions: Reason For Exam: Expressive aphasia, unsteady gait. Possible CVA 05/10/21 18:00 Consult to Physician [CONS] Routine Comment: left message/adrián Consulting Provider: TANA CARRASCO II Physician Instructions: Reason For Exam: midline shift 05/16/21 13:00 Consult to Physician [CONS] Routine Comment: call office left message/adrián Consulting Provider: RAFFI LUTZ Physician Instructions: Reason For Exam: AFIB with RVR Primary care physician: ACCESS COORDINATOR Hospitalization Hospital course: I saw and evaluated the patient. I agree with the findings and the plan of care as documented in the Nurse Practitioner's~note, with the following corrections and additions. Exam - Constitutional Vitals: Temp Pulse Resp BP Pulse Ox 98.2 F 67 19 151/80 100 05/17/21 12:00 05/17/21 17:30 05/17/21 17:30 05/17/21 17:30 05/17/21 17:30
[2021-05-17] MEDS ORDERED: POTASSIUM CHLORIDE 20 MEQ PACKET FEEDTUBE ONE (13:00)
[2021-05-17 14:38] LABS: INR 1.09 (0.87-1.13)
[2021-05-17 14:39] LABS: Partial Thromboplastin Time 26.3 Sec. (24.2-36.6)
[2021-05-17] MEDS: SODIUM CHLORIDE 3% 500 ML IV SCH (16:46)
[2021-05-17 17:48] VITALS: BP 151/80
[2021-05-17] MEDS ORDERED: APIXABAN 2.5 MG TAB PO SCH (22:00)
--- NOTE | 2021-05-19 13:04 | Electrocardiograph Report ---
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
== END 2021-05-17 17:20 | disposition short-term general hospital (02) | DRG 65 ==
LOC: ED 00:53 → 4A 03:10 → CC1 21:59
PROVIDERS: ADMIT Internal Medicine Geriatric Medicine; ATTEND Internal Medicine
DX: I63.9 Cerebral infarction, unspecified (principal); E87.1 Hypo-osmolality and hyponatremia; E87.2 Acidosis; I42.0 Dilated cardiomyopathy; I50.20 Unspecified systolic (congestive) heart failure; R47.01 Aphasia; E11.65 Type 2 diabetes mellitus with hyperglycemia; I11.0 Hypertensive heart disease with heart failure; E87.6 Hypokalemia; I27.20 Pulmonary hypertension, unspecified; E83.39 Other disorders of phosphorus metabolism; E83.42 Hypomagnesemia; I48.0 Paroxysmal atrial fibrillation
CPT/HCPCS: 36415; 70450; 70496; 70498; 70551; 80048; 80053; 80061; 81001; 82550; 82553; 82805; 82962; 83036; 83735; 83930; 84100; 84132; 84295; 84484; 85025; 85027; 85610; 85670; 85730; 93005; 93010; 93306; 93880; G0378; J3490; J7060; J9280; Q9967; C8929; J0282; J1630; J1644; J1650; J1815; J2150; J3475; J7040